=== PATIENT | male | born 1940 | race Caucasian/White ===

== ENCOUNTER → 2016-03-22 | Outpatient (CLI) | payer BC ==
[~2016-03-22] MED LIST: ACET-1256 PO; ASCA500 PO; CHOL100027 PO; CLTP PO; MULT-506 PO; NPR500 PO; POLY335019 PO; PRLSR20 PO; SIMV20TA2 PO; TADA5TAB11 PO; VITA400C15 PO; [UNRECOGNIZED DRUG - OTHER] PO
--- NOTE | 2016-03-22 13:56 | DIAGNOSTIC IMAGING REPORT ---
CT OF THE CHEST WITHOUT IV CONTRAST CLINICAL HISTORY: Pulmonary nodules. COMPARISON STUDY: Chest CT January 20, 2015 and PET/CT February 15, 2015. CT DOSE: 697.68 mGy.cm TECHNIQUE: Axial images of the chest were obtained without IV contrast. Images were reviewed in the axial, sagittal, and coronal planes. IV contrast was not administered for this examination. FINDINGS: No enlarged axillary, mediastinal or hilar lymph nodes are present. The heart is mildly enlarged. There is extensive coronary artery calcification. Central airways are patent. There is mild to moderate emphysema. A spiculated 2.4 cm left lower lobe nodule shown on image 176 of [address] of January 20, 2015. An irregular spiculated density within the right middle lobe measuring 5.1 cm is also unchanged. There is associated architectural distortion. These irregular densities contain areas of fat attenuation. A few right upper lobe nodules measuring up to 1.3 cm are unchanged. There are no new nodules. No suspicious osseous lesions are present. A suspected cyst within the upper pole the left kidney is again noted. IMPRESSION: 1. No change in the 2.4 cm spiculated left lower lobe nodule and the 5.1 cm spiculated density within the right middle lobe since CT of January 20, 2015. These remain indeterminate. However, areas of fat attenuation within these abnormalities raise the possibility of the sequela of lipoid pneumonia. Scarring could appear similar. A neoplastic process remains difficult to exclude and continued imaging follow-up is recommended with a follow-up chest CT in 6 months. 2. No thoracic lymphadenopathy. 3. No change in several right upper lobe nodules which can be assessed on subsequent CT. Electronically signed by: Ford Shipley M.D. 03/22/2016 1:54 PM Dictated Date/Time: 03/22/2016 1:37 PM
== END | disposition home or self-care (01) ==
LOC: C.CTS 13:27
PROVIDERS: ATTEND Surgery
DX: R91.8 Other nonspecific abnormal finding of lung field (principal)

== ENCOUNTER → 2016-08-19 | Outpatient (CLI) | payer BC ==
--- NOTE | 2016-08-19 10:54 | DIAGNOSTIC IMAGING REPORT ---
CHEST CT WITHOUT CONTRAST CT DOSE: 552.50 mGy.cm HISTORY: R91.8 Pulmonary nodules TECHNIQUE: Multiaxial CT images of the chest were performed without contrast. COMPARISON: 03/22/2016 FINDINGS: The study is a duplicate of the prior exam. Several nodular densities present described are unchanged. There are no new or interval findings. There is no change in configuration of any of the nodular densities previously questioned. IMPRESSION: Stable exam with no change in the pulmonary nodularity previously described. No new or interval finding. A follow-up examination to 12 months suggested. Electronically signed by: Francisco Wagner M.D. 08/19/2016 10:53 AM Dictated Date/Time: 08/19/2016 10:49 AM
[2016-08-19 12:16] LABS: BASO % 0.5 %; BASO ABS # 0.02 K/uL (0-0.2); COMPLETE YES; EOS % 1.6 %; HEMATOCRIT 43.5 % (42-52); LYMPH % 21.1 %; LYMPH ABS # 0.81 K/uL (1.2-3.4); MEAN CELL VOLUME 88.2 fL (80-100); MEAN CORPUSCULAR HEMOGLOBIN 28.6 pg (25-34); MEAN CORPUSCULAR HGB CONC 32.4 g/dl (32-36); MEAN PLATELET VOLUME 10.4 fL (7.4-10.4); MONO % 11.5 %; NEUT % 65.3 %; PLATELET COUNT 147 K/uL (130-400); RED BLOOD COUNT 4.93 M/uL (4.7-6.1); WHITE BLOOD COUNT 3.84 K/uL (4.8-10.8)
[2016-08-19 12:36] LABS: ALT/SGPT 20 U/L (12-78); BLOOD UREA NITROGEN 17 mg/dl (7-18); BUN/CREATININE RATIO 20.7 (10-20); CARBON DIOXIDE 31 mmol/L (21-32); CHLORIDE 104 mmol/L (98-107); CHOLESTEROL 154 mg/dl (0-200); CREATININE 0.82 mg/dl (0.60-1.40); GLUCOSE 97 mg/dl (70-99); POTASSIUM 4.3 mmol/L (3.5-5.1); SODIUM 140 mmol/L (136-145); TRIGLYCERIDES 172 mg/dl (0-150); VERY LOW DENSITY LIPOPROT CALC 34 mg/dl
[2016-08-19 12:39] LABS: ALB/GLOB RATIO 1.6 (0.9-2); ALKALINE PHOSPHATASE 44 U/L (45-117); AST/SGOT 18 U/L (15-37); CHOLESTEROL/HDL RATIO 3.4; ESTIMATED AVERAGE GLUCOSE 123 mg/dl; HA1C FLAG Normal (Normal); HDL CHOLESTEROL 45 mg/dl; LDL CHOLESTEROL CALCULATED 75 mg/dl
[2016-08-19 12:41] LABS: CALCIUM 8.8 mg/dl (8.5-10.1)
== END | disposition home or self-care (01) ==
LOC: C.CTS 09:51
PROVIDERS: ATTEND Surgery
DX: R91.8 Other nonspecific abnormal finding of lung field (principal); E78.5 Hyperlipidemia, unspecified; M48.00 Spinal stenosis, site unspecified; R73.9 Hyperglycemia, unspecified; E55.9 Vitamin D deficiency, unspecified; I70.0 Atherosclerosis of aorta; I25.10 Atherosclerotic heart disease of native coronary artery without angina pectoris; I10 Essential (primary) hypertension

== ENCOUNTER → 2016-09-04 | Outpatient (CLI) | payer BC | END | disposition home or self-care (01) | LOC: C.LABPBG 14:36 | PROVIDERS: ATTEND Urology | DX: C61 Malignant neoplasm of prostate (principal) ==

== ENCOUNTER → 2017-01-14 | Outpatient (CLI) | payer BC ==
--- NOTE | 2017-01-14 09:54 | DIAGNOSTIC IMAGING REPORT ---
AORTIC ANEURYSM RETROPERINEAL CLINICAL HISTORY: I72.3 Iliac artery aneurysm screen for coexisting abdominal aortic aneurysm COMPARISON STUDY: CT scan dated 01/16/2015 FINDINGS: The peak systolic velocity within the aorta was 66 cm/s. The proximal aorta measures 22 mm in diameter, the mid aorta 22 mm in diameter, the distal aorta 18 mm in diameter. The right iliac measures 18 mm in diameter. The left iliac measures 12 mm in diameter. There is moderate shadowing atheromatous plaque throughout the aorta. IMPRESSION: Calcified aortic plaque. No evidence of abdominal aortic aneurysm. Electronically signed by: Diego Collier M.D. 01/14/2017 9:52 AM Dictated Date/Time: 01/14/2017 9:49 AM
== END | disposition home or self-care (01) ==
LOC: C.ULTR 09:13
PROVIDERS: ATTEND Internal Medicine Geriatric Medicine
DX: I72.3 Aneurysm of iliac artery (principal)

== ENCOUNTER → 2017-02-19 | Outpatient (CLI) | payer BC ==
[~2017-02-19] MED LIST changes: +FLUT0.15 PO; +LISI-729 PO; +LOSA1TAB PO; +NAPR-21 PO; -NPR500 PO
[2017-02-19 14:22] VITALS: BP 146/69; PULSE 57; TEMP 36.9; O2SAT 96
--- NOTE | 2017-02-19 15:29 | Radiation Oncology Follow-Up ---
Radiation Oncology Follow-Up Date of Visit Feb 19, 2017. Reason For Visit Annual follow up Radiation Completion Date Seed Implant 04/28/12, IMRT 07/28/12 Diagnosis (1) Prostate cancer Status: Resolved Onset Date: 01/30/2012 Location: both lobes of prostate Histology Subtype: adenocarcinoma Stage: ll Permanent Comment: Rising PSA, pretreatment PSA 6.97, clinical stage TIc Status post ultrasound-guided biopsies. Biopsy stage T2c Anay grade 3+3 and 3+4 Status post seed implant with cesium 131 04/28/2012 Status post completion of IMRT/IGRT completed 07/28/2012 Last Edited By: Paty Montez on Feb 09, 2015 15:39 Interim History His been doing well over this past year from urinary standpoint. Today he gave AUA score of 3. He does take Cialis daily. This prescribed by urology. He feels does help his urination. He completed and expanded prostate cancer index composite for clinical practice and gave a score of 0 of cut 12 and urinary incontinence symptoms. He gave a score of 0 of 12 and urinary irritation symptoms. He gave a score of 0 of 12 and bowel symptoms. He gave a score of 3 of 12 and sexual symptoms. He gave a score of 0 of 12 and hormonal vitality symptoms. His total was 3 of 60. He had a PSA 02/14/2016 that was 0.049. A PSA on 09/04/2016 was 0.039. Allergies Coded Allergies: Ibuprofen (Verified Allergy, Intermediate, RASH, 03/10/15) Penicillins (Verified Allergy, Intermediate, RASH, 03/10/15) Doxycycline (Verified Allergy, Unknown, UNKNOWN, 03/10/15) Oxycodone (Verified Allergy, Unknown, HALLUCINATION, 03/10/15) Propoxyphene (Verified Adverse Reaction, Severe, HALLICINATIONS, 03/10/15) Pravastatin (Verified Adverse Reaction, Intermediate, JOINT PAIN, 03/10/15) Home Medications Scheduled Acetaminophen (Tylenol), 500 MG PO BID Ascorbic Acid (Vitamin C *), 500 MG PO QAM Calcium/Vitamin D (Caltrate 600 Plus *), 1 TAB PO BID Cholecalciferol (Vitamin D 1000 Unit), 5,000 INTER.UNIT PO QAM Multivitamin (Multivitamin), 1 TAB PO Q2D Naproxen (Naprosyn), 500 MG PO BID Omeprazole (Prilosec), 20 MG PO QAM Polyethylene Glycol 3350 (Miralax), 17 GM PO QPM Simvastatin (Zocor), 1 TAB PO HS Tadalafil (Cialis), 5 MG PO QAM Tocopheryl Acet,Dl-Alpha (Vitamin E), 400 INTER.UNIT PO Q2D [Lipotriad], 1 TAB PO QAM Review of Systems Gastrointestinal: Symptoms: WNL Oral: Symptoms: No Problems Respiratory: Symptoms: WNL Urinary: Symptoms: WNL Comments: Nocturia x 1-2, See AUA & EPIC Skin: Symptoms: No Problems Physical Exam Vital Signs Date Time Temp Pulse Resp B/P (MAP) Pulse Ox O2 Delivery O2 Flow Rate FiO2 02/19/17 14:22 36.9 57 16 146/69 96 Fatigue: None General Appearance: no apparent distress Eyes: normal inspection, EOMI ENT: normal ENT inspection, hearing grossly normal Neck: no adenopathy, thyroid normal Respiratory/Chest: lungs clear, no respiratory distress, no accessory muscle use Cardiovascular: regular rate, rhythm, no gallop, no murmur Abdomen: non tender, soft, no organomegaly Anal / Rectum: Normal sphincter tone. Prostate is smooth without nodules. No rectal masses no rectal bleeding. Pain Management Patient Reports Pain: Yes Pain Management Plan This is back pain which is chronic. He is followed at pain management. Laboratory Laboratory Results: were reviewed Laboratory Comments: In the interim history. Pathology Pathology Results: not applicable Imaging Imaging Studies: not applicable Assessment & Plan Plan: A PSA was drawn today prior to examination. Healing notified as to results. He'll continue regular follow-up with Dr. Mcnamara and his primary care physician. We did briefly touch on the lordosis that he has of his back. He states that he has had multiple studies performed. This is an inherited condition. He has been evaluated for osteoporosis. We asked him to return to our office in 1 year. He may call if he has any questions or concerns in the interim. Total Time In Follow-Up I spent 20 minutes speaking to the patient performing examination. I spent 15 minutes reviewing information in completing this note. Copy To Nick Yeboah M.D.; Estuardo Mcnamara MD
== END | disposition home or self-care (01) ==
LOC: C.ONC 14:02
PROVIDERS: ATTEND Physician Assistant Medical
DX: Z08 Encounter for follow-up examination after completed treatment for malignant neoplasm (principal); Z92.3 Personal history of irradiation; Z85.46 Personal history of malignant neoplasm of prostate

== ENCOUNTER → 2017-02-26 | Outpatient (CLI) | payer BC ==
[~2017-02-26] MED LIST changes: -FLUT0.15 PO
[2017-02-26 10:57] LABS: BLOOD UREA NITROGEN 18 mg/dl (7-18); CALCIUM 9.3 mg/dl (8.5-10.1); CARBON DIOXIDE 30 mmol/L (21-32); CREATININE 0.85 mg/dl (0.60-1.40); GLUCOSE 117 mg/dl (70-99); POTASSIUM 4.1 mmol/L (3.5-5.1); SODIUM 138 mmol/L (136-145)
[2017-02-26 11:00] LABS: CHOLESTEROL 186 mg/dl (0-200); LDL CHOLESTEROL CALCULATED 104 mg/dl
[2017-02-26 11:12] LABS: BASO % 0.5 %; BASO ABS # 0.02 K/uL (0-0.2); EOS % 1.7 %; EOS ABS # 0.07 K/uL (0-0.5); HEMATOCRIT 44.2 % (42-52); HEMOGLOBIN 14.7 g/dL (14.0-18.0); LYMPH % 18.7 %; LYMPH ABS # 0.77 K/uL (1.2-3.4); MEAN CELL VOLUME 86.3 fL (80-100); MEAN CORPUSCULAR HEMOGLOBIN 28.7 pg (25-34); MEAN CORPUSCULAR HGB CONC 33.3 g/dl (32-36); MONO ABS # 0.41 K/uL (0.11-0.59); NEUT % 69.1 %; NEUT ABS # 2.85 K/uL (1.4-6.5); PLATELET COUNT 145 K/uL (130-400); RED CELL DISTRIBUTION WIDTH CV 14.6 % (11.5-14.5); RED CELL DISTRIBUTION WIDTH SD 46.8 fL (36.4-46.3); WHITE BLOOD COUNT 4.12 K/uL (4.8-10.8)
== END | disposition home or self-care (01) ==
LOC: C.LABBC 08:17
PROVIDERS: ATTEND Internal Medicine Geriatric Medicine
DX: E78.5 Hyperlipidemia, unspecified (principal); M48.00 Spinal stenosis, site unspecified; R73.9 Hyperglycemia, unspecified; I10 Essential (primary) hypertension

== ENCOUNTER → 2017-03-11 | Outpatient (CLI) | payer BC ==
[~2017-03-11] MED LIST changes: -LISI-729 PO; -LOSA1TAB PO; -NAPR-21 PO; +NPR500 PO
[2017-03-11 13:26] LABS: BLOOD UREA NITROGEN 18 mg/dl (7-18); CALCIUM 9.6 mg/dl (8.5-10.1); CARBON DIOXIDE 30 mmol/L (21-32); CREATININE 0.86 mg/dl (0.60-1.40); GLUCOSE 83 mg/dl (70-99); POTASSIUM 3.6 mmol/L (3.5-5.1); SODIUM 138 mmol/L (136-145)
== END | disposition home or self-care (01) ==
LOC: C.LABPBG 09:18
PROVIDERS: ATTEND Internal Medicine Geriatric Medicine
DX: I10 Essential (primary) hypertension (principal)

== ENCOUNTER → 2017-07-11 | Outpatient (CLI) | payer BC ==
[~2017-07-11] MED LIST changes: +LOSA1TAB PO; +NAPR-21 PO; -NPR500 PO
--- NOTE | 2017-07-11 08:41 | DIAGNOSTIC IMAGING REPORT ---
(CHEST) THORAX WITHOUT CLINICAL HISTORY: PULMONARY NODULES COMPARISON STUDY: 08/19/2016, March 2016, September 2015, January 2015 CT DOSE: 535.42 mGycm TECHNIQUE: CT of the thorax was performed from the thoracic inlet to the lung bases. Images are reviewed in the axial, sagittal, and coronal planes. IV contrast was not administered for this examination. A dose lowering technique was utilized adhering to the principles of ALARA. FINDINGS: Thyroid: Imaged portions of the thyroid gland are normal in appearance. Thoracic aorta: The thoracic aorta is normal in course and caliber, noting standard 3 vessel arch anatomy. Heart: There are coronary artery calcifications present. Lungs and pleural spaces: There are no pleural effusions. There is pulmonary emphysema present. There is irregular marginated 23 mm nodular opacity within superior segment left lower lobe. There is a persistent area of bronchiectatic change and masslike consolidation within the right middle lobe. There are clustered right upper lobe nodules including a tubular density measuring 12 x 5 mm. These remain stable. Mediastinum: There is no mediastinal lymphadenopathy. [place]: There is no evidence of pathologic hilar adenopathy given the limitations of a noncontrast study Axilla: Clear. Upper abdomen: Partially visualized upper abdominal viscera is within normal limits. Skeletal structures: Degenerative changes are present within the dorsal spine. 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 IMPRESSION: 1. Stable 23 mm irregular marginated nodule within the superior segment of the left lower lobe 2. Stable bronchiectatic change and masslike consolidation within the right middle lobe 3. Stable right upper lobe pulmonary nodularity 4. The 2 1/2 year stability of the above-mentioned findings, strongly favor a benign process Electronically signed by: Diego Collier M.D. 07/11/2017 8:40 AM Dictated Date/Time: 07/11/2017 8:33 AM
== END | disposition home or self-care (01) ==
LOC: C.CTS 08:02
PROVIDERS: ATTEND Internal Medicine Geriatric Medicine
DX: R91.8 Other nonspecific abnormal finding of lung field (principal)

== ENCOUNTER 2023-11-04 12:53 | Observation (INO) ==
--- NOTE | 2023-11-04 14:09 | Emergency Department Note ---
Impression & Plan Acute hyponatremia, Dizziness, Anemia, Leukopenia ED Provider Note NAME: DREA MCDANIEL AGE: 82 SEX: M : 1940 ARRIVES VIA: Ambulance INFORMANT: Patient ED PROVIDER(S): Kyler Ward DO CHIEF COMPLAINT: Dizzy/lightheaded HPI: Patient is an 82-year-old male who presents to the ER with a past medical history of aortic stenosis, cardiomyopathy, pulmonary hypertension and CAD for lightheaded/dizziness. This started around 10 AM when he went from a sitting to a standing position and he felt lightheaded. He notes when he sat down he believes it went away but is not 100% sure. He does not remember the. He notes it stayed there intermittently for about an hour to an hour and a half. He denies any headache or change in vision. No chest pain or shortness of breath. No dysuria urgency or frequency. No other exacerbating or remitting factors. No change in medications. ADDITIONAL HISTORY OBTAINED: Per HPI Chronic Medical/Social Conditions Affecting Care: Per HPI PAST MEDICAL HISTORY:See Below PAST SURGICAL HISTORY:See Below FAMILY HISTORY:See Below SOCIAL HISTORY:See Below HOME MEDICATIONS:See Below ALLERGIES:See Below VITALS:See Below PHYSICAL EXAMINATION: GENERAL: Sitting up in bed, alert, well appearing, well nourished, no distress, non-toxic EYE EXAM: normal conjunctiva. PERRL and EOM's intact. OROPHARYNX: no exudate, no erythema, lips, buccal mucosa, and tongue normal and mucous membranes are moist NECK: supple, no nuchal rigidity, no adenopathy, non-tender LUNGS: Clear to auscultation. Normal chest wall mechanics HEART: no murmurs, S1 normal and S2 normal ABDOMEN: abdomen soft, non-tender, normo-active bowel sounds, no masses, no rebound or guarding. UPPER EXTREMITIES: upper extremities are grossly normal. LOWER EXTREMITIES: No pitting edema. NEURO EXAM: Normal sensorium, cranial nerves II-XII intact, normal speech, no weakness of arms, no weakness of legs. No drift. Finger to nose intact. Gross sensation intact. MEDICAL DECISION MAKING: Patient is an 82-year-old man who presents to the ER for dizziness/lightheadedness. IV was established blood was obtained. Labs show a leukopenia of 3.4 thousand. Mild anemia at 9.4. BMP with hyponatremia at 128. LFTs bilirubin was unremarkable. Troponin was negative. UA was clean. CT angios of the head and neck showed no acute pathology. Patient was given IV fluids. He was updated at bedside. He was discussed with with the hospitalist for further evaluation management treatment. Consults/Care Managements Discussions: Per [facility] Triage Nursing notes reviewed. Limited review of prior medical records performed Vital Signs: reviewed and remarkable for HTN Differential diagnosis: Differential diagnosis includes etiologies such as benign positional vertigo, dehydration, hypovolemia, anemia, tumor, infection, hypoglycemia, electrolyte abnormalities, cardiac sources, intracerebral event, toxicologic, neurological, as well as others were entertained. ER treatment provided: See below Diagnostics interpreted by me include EKG and cardiac monitoring as listed below: -Cardiac Monitoring: An order was placed for continuous cardiac monitoring. The monitor shows a rate of 60 with sinus rhythm. -ECG: Sinus rhythm rate of 57 First-degree AV block Right bundle branch block Fascicular block QTc 453 -Laboratory studies:[Interpreted by me as stated above in MDM and shown below.] Imaging studies: Xrays: As interpreted by me: Portable AP upright 1 view of the chest shows right lower lobe atelectasis. CTs show: CT a of the head and neck was negative Procedures:none Critical Care: None Past Med/Surg History Problem List (Updated 11/04/23 @ 18:42 by Kyler Ward DO) Leukopenia (Acute) Anemia (Acute) Dizziness (Acute) Acute hyponatremia (Acute) Hyponatremia Weakness Varicose veins of both legs with edema B12 deficiency Sialorrhea Pulmonary hypertension Cardiomyopathy Aortic stenosis, mild Nasal septal deviation Hypertrophy of both inferior nasal turbinates Chronic rhinitis Lumbar back pain Thoracic back pain Coronary artery calcification RBBB Abnormal EKG COPD (chronic obstructive pulmonary disease) pt denies Prediabetes Male erectile disorder of organic origin Prostate cancer Superficial spreading malignant melanoma of skin Chronic venous insufficiency History of malignant neoplasm of prostate 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, along with aortic atherosclerosis > under surveillance Macular degeneration Left eye Osteopenia Pulmonary emphysema Pulmonary nodules "Benign" navigational bronchoscopy/biopsy (2016) Tubular adenoma of colon Vitamin D deficiency Lumbar radiculitis (Chronic) Anxiety Lumbar facet joint syndrome (Chronic) Spinal stenosis, lumbar region with neurogenic claudication (Chronic) Chronic constipation CAD (coronary artery disease) Aortic atherosclerosis Umbilical hernia Hypertension Hyperlipidemia GERD (gastroesophageal reflux disease) Osteoarthritis Medical History Personal history of malignant melanoma of skin Sacroiliitis Surgical History Status post 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 Walden 09/27/2020 H/O right inguinal hernia repair Laparoscopic Right Inguinal Hernia Repair with mesh, Open Umbilical Hernia Repair(Right) Dr. Walden 09/27/2020 History of prostate biopsy History of melanoma excision History of tooth extraction all teeth removed S/P bronchoscopy Navigational bronchoscopy (2015) History of colonoscopy History of total knee arthroplasty R/L H/O cervical spine surgery ACDF C4-5 (no ROM limitations per PAT RN interview) History of tonsillectomy and adenoidectomy Family History Father Coronary heart disease Heart disease Myocardial infarction Mother Stroke Family/Other Diabetes A-fib Lung cancer Hypertension Other No family history of adverse response to anesthesia No family history of bleeding disorder Denies family history of Ovarian cancer Prostate cancer Breast cancer Colorectal cancer Social History Smoking Status: Former smoker Tobacco Type: Cigarettes Age Started Using Tobacco: 15; Age Quit Using Tobacco: 49; Second Hand Exposure: No; Do You Dip or Chew Tobacco: No; Hx Alcohol Use: Yes Alcohol type: hard liquor Alcohol Intake Frequency: 2-4 x/Month Hx Substance Use: No Preferred Language: B[place]ian Communication Ability: Effective Visual Impairment: No Limitations Hearing Ability: Normal Frog Catcher Required: No Beliefs That Will Affect Care: None marital status: Current Living Situation: Spouse current occupational status: retired Feels Safe at Home: Yes Childhood Exposure to Second-Hand Smoke: Yes Diet: regular Diet Comment: regular caffeine: No during the past year weight has: remained stable Dental Care, Regularly: No Physical Activity Frequency: Daily Seatbelt Use: always Sunscreen Use: No Assistive Devices: Denture - Upper, Denture - Lower and Glasses Allergies Allergies Allergy/AdvReac Type Severity Reaction Status Date / Time ibuprofen Allergy Intermediate Rash Verified 10/30/23 08:34 Penicillins Allergy Intermediate Rash Verified 10/30/23 08:34 ranitidine Allergy Intermediate Rash Verified 10/30/23 08:34 (stomach) meloxicam Allergy Unknown Unknown Verified 10/30/23 08:34 ramipril Allergy Unknown Verified 10/30/23 08:34 oxycodone AdvReac Severe Hallucinati Verified 10/30/23 08:34 ons propoxyphene AdvReac Severe Hallucinati Verified 10/30/23 08:34 ons pravastatin AdvReac Intermediate Joint pain Verified 10/30/23 08:34 doxycycline AdvReac Unknown Per Verified 10/30/23 08:34 records (pt denies) Home Meds Home Medications Medication Instructions Recorded Confirmed calcium carbonate 600 mg-vitamin 1 tab PO BID 02/16/18 11/04/23 D3 20 mcg (800 unit) chewable tablet (Caltrate 600 plus D) cholecalciferol (vitamin D3) 125 5,000 units PO QAM 02/16/18 11/04/23 mcg (5,000 unit) tablet polyethylene glycol 3350 17 17 g PO HS 02/16/18 11/04/23 gram/dose oral powder (Miralax) vit A 5,000 unit-C 120 mg-E 60 1 tab PO QAM 02/16/18 11/04/23 unit-B [id number] tablet ER (Lipotriad (with lutein)) vitamin E acetate 134 mg (200 400 units PO Q OTHER DAY 02/16/18 11/04/23 unit) capsule multivitamin 1 tab PO DAILY 12/29/18 11/04/23 pantoprazole 40 mg tablet,delayed 40 mg PO DAILY 11/04/23 11/04/23 release tamsulosin 0.4 mg capsule 0.4 mg PO HS 11/04/23 11/04/23 tramadol 50 mg tablet 50 mg PO HS PRN pain 11/04/23 11/04/23 Previous Rx's Medication Instructions Recorded metoprolol succinate 25 mg 25 mg PO DAILY #90 tabs 12/16/22 tablet,extended release 24 hr simvastatin 20 mg tablet (Zocor) 20 mg PO QPM #90 tabs 02/17/23 loratadine 10 mg tablet (Claritin) 10 mg PO DAILY #30 tabs 05/20/23 naproxen 500 mg tablet 500 mg PO BID #180 tabs 09/24/23 sertraline 25 mg tablet 25 mg PO DAILY #30 tabs 09/30/23 Results & Data (ED) Vital Signs Vital Signs - 24 hr 11/04/23 13:13 11/04/23 13:21 11/04/23 13:21 Temperature 36.4 C Temperature Source Oral Pulse Rate 57 L 53 L Pulse Rate [Apical] Respiratory Rate 16 Respiratory Effort / Characteristics Non-Labored Respiratory Depth Normal Respiratory Pattern Regular Blood Pressure 164/70 H Blood Pressure [Right Arm] Blood Pressure Mean 101 Blood Pressure Mean [Right Arm] Blood Pressure Position Semi-fowlers Blood Pressure Position [Right Arm] Pulse Oximetry 98 97 Oxygen Delivery Method Room Air Room Air Sepsis Recent Fever Within 48 Hours No Sepsis New/Unexplained Change in Mental Status No Sepsis Action Taken by Nursing No Action Required 11/04/23 13:21 11/04/23 15:30 11/04/23 15:31 Temperature Temperature Source Pulse Rate 67 Pulse Rate [Apical] 58 L 70 Respiratory Rate 21 18 18 Respiratory Effort / Characteristics Non-Labored Spontaneous Non-Labored Spontaneous Respiratory Depth Normal Normal Respiratory Pattern Regular Regular Blood Pressure Blood Pressure [Right Arm] 164/70 H 114/74 Blood Pressure Mean Blood Pressure Mean [Right Arm] 101 87 Blood Pressure Position Blood Pressure Position [Right Arm] Semi-fowlers Pulse Oximetry 98 94 97 Oxygen Delivery Method Room Air Room Air Room Air Sepsis Recent Fever Within 48 Hours Sepsis New/Unexplained Change in Mental Status Sepsis Action Taken by Nursing 11/04/23 16:49 11/04/23 18:15 11/04/23 18:25 Temperature Temperature Source Pulse Rate 55 L Pulse Rate [Apical] 67 64 Respiratory Rate 17 18 Respiratory Effort / Characteristics Non-Labored Spontaneous Non-Labored Spontaneous Respiratory Depth Normal Normal Respiratory Pattern Regular Regular Blood Pressure Blood Pressure [Right Arm] 180/78 H 117/67 Blood Pressure Mean Blood Pressure Mean [Right Arm] 112 83 Blood Pressure Position Blood Pressure Position [Right Arm] Semi-fowlers Pulse Oximetry 98 96 Oxygen Delivery Method Room Air Room Air Sepsis Recent Fever Within 48 Hours Sepsis New/Unexplained Change in Mental Status Sepsis Action Taken by Nursing Laboratory Data 11/04/23 13:42 11/04/23 13:42 Lab Results 11/04/23 11/04/23 11/04/23 Range/Units 13:38 13:42 17:19 WBC 3.44 L (4.8-10.8) K/ul RBC 4.03 L (4.70-6.10) M/uL Hgb 9.4 L (14.0-18.0) g/dl Hct 30.5 L (42.0-52.0) % MCV 75.7 L (80.0-100.0) fL MCH 23.3 L (25.0-34.0) pg MCHC 30.8 L (32.0-36.0) g/dL RDW Std Deviation 43.4 (36.4-46.3) fL RDW Coeff of Brian 15.9 H (11.5-14.5) % Plt Count 161 (130-400) K/uL MPV 9.0 L (9.4-12.4) fL Immature Gran % (Auto) 0.3 % Neut % (Auto) 74.4 % Lymph % (Auto) 11.9 % [place] % (Auto) 11.6 % Eos % (Auto) 1.2 % Baso % (Auto) 0.6 % Neut # (Auto) 2.56 (1.40-6.50) K/uL Lymph # (Auto) 0.41 L (1.20-3.40) K/uL [place] # (Auto) 0.40 (0.11-0.59) K/uL Eos # (Auto) 0.04 (0.00-0.50) K/uL Baso # (Auto) 0.02 (0.00-0.20) K/uL Immature Gran # (Auto) 0.01 (0.01-0.20) K/uL Sodium 128 L (136-145) mmol/L Potassium 4.0 (3.5-5.1) mmol/L Chloride 95 L (98-107) mmol/L Carbon Dioxide 28 (21-32) mmol/L Anion Gap 5 (3-11) BUN 19 (6-23) mg/dl Creatinine 0.69 (0.6-1.4) mg/dl Est Cr Clr Drug Dosing 81.1 ml/min Est GFR ( Amer) 101.8 ml/min Est GFR (Non-Af Amer) 87.8 ml/min BUN/Creatinine Ratio 27.5 H (10-20) Glucose 104 H (70-99(Fasting)) mg/dl POC Glucose 100 H (70-99) mg/dl Calcium 8.5 L (8.6-10.3) mg/dl Total Bilirubin 0.4 (0.2-1.0) mg/dl AST 18 (13-39) U/L ALT 12 (7-52) U/L Alkaline Phosphatase 41 (34-104) U/L Troponin I High Sens 8.2 (0-20) pg/ml Total Protein 5.9 L (6.0-8.3) gm/dl Albumin 4.0 (3.4-5.0) gm/dl Globulin 1.9 L (2.5-4.0) gm/dl Albumin/Globulin Ratio 2.1 H (0.9-2) Lipase 24 (11-82) U/L Urine Color Yellow Urine Appearance Clear (Clear) Urine pH 8.0 H (4.5-7.5) Ur Specific [place] 1.017 (1.000-1.030) Urine Protein Negative (Negative) Urine Glucose (UA) Negative (Negative) Urine Ketones Negative (Negative) Urine Blood Negative (Negative) Urine Nitrite Negative (Negative) Urine Bilirubin Negative (Negative) Urine Urobilinogen Negative (Negative) Ur Leukocyte Esterase Negative (Negative) Urine Osmolality 306 L (500-800) mOsm/kg Ur Random Sodium 81 mmol/L Administered Medications Discontinued Medications Sodium Chloride (Nss) 500 mls @ 999 mls/hr IV .Q31M ONE Stop: 11/04/23 14:34 Last Infusion: 11/04/23 16:47 Dose: Infused Documented By: Admin: 11/04/23 14:18 Dose: 999 mls/hr Documented By: JOVANY Ioversol (Optiray 320 125ml) 120 ml IV ONCE ONE Stop: 11/04/23 14:59 Last Admin: 11/04/23 14:58 Dose: 120 ml Documented By: BERNARDINO Imaging Data Radiologist's Impression: Chest X-Ray 11/04/23 14:04 XR chest 1V portable CLINICAL HISTORY: Chest pain, nonspecific TECHNIQUE: Single frontal radiograph of the chest was obtained. Comparison: Comparison is made to rib series 10/03/2020 FINDINGS: No lines and tubes are seen. The cardiomediastinal silhouette is stable. Atelectasis is seen. No evidence of pleural effusion or pneumothorax. IMPRESSION: No acute chest disease. ACT 112: Negative or not required by law. Electronically signed by: Sigifredo Diego M.D. 11/04/2023 2:40 PM Head CTA 11/04/23 14:04 CT angio head wo/w CLINICAL HISTORY: dizzy COMPARISON STUDY: PET/CT February 15, 2015. TECHNIQUE: Unenhanced and arterial phase imaging of the head was performed. Intravenous injection of 120 cc Optiray 320 IV was uneventful. Sagittal and coronal reconstructions were viewed as well as maximal intensity projections on an independent 3-D workstation. Automated exposure control was utilized for the study. A dose lowering technique was utilized adhering to the principles of ALARA. FINDINGS: No acute intracranial hemorrhage, midline shift or mass effect is present. Ventricular system is unremarkable. The basal cisterns are patent. There is a suspected old lacunar infarct within the right cerebellar hemisphere. White matter hypodensity suggests small vessel disease. There is mild atrophy. No findings to suggest acute dural sinus thrombosis or acute territorial infarct. The bilateral M1, M2, A1 and A2 segments are patent. There is extensive calcified plaque within the bilateral cavernous carotids without significant stenosis. No central vessel occlusion is present. There is mild stenosis of the left vertebral artery as it passes through the dura. Basilar artery is patent. Posterior cerebral arteries are patent. There is persistence of the left posterior cerebral artery. IMPRESSION: 1. No acute intracranial findings. 2. No large vessel occlusion. No intracranial aneurysm. ACT 112: Negative or not required by law. Electronically signed by: Ford Shipley M.D. 11/04/2023 3:23 PM Neck CTA 11/04/23 14:04 CT angio neck with con CLINICAL HISTORY: dizzy TECHNIQUE: CT angiography of the neck was performed following intravenous administration of iodinated contrast. Coronal and sagittal MIPS were obtained from the axial data set and were submitted for review. Automated dose lowering techniques and/or adjustment according to patient size were utilized for this examination. All measurements were calculated based on NASCET criteria. Comparison: None available at the time of this dictation. FINDINGS: Bilateral emphysematous changes are seen. CTA Neck: A 3 vessel aortic arch is shown. There is no significant atherosclerotic plaque in the aortic arch or the origins of the innominate, left common carotid, and left subclavian arteries. There is mild calcified atherosclerotic plaque at the bifurcation of the bilateral common carotid arteries without hemodynamically significant flow stenosis. There is no dissection present. The right vertebral artery is dominant. IMPRESSION: No occlusion, hemodynamically significant stenosis, or dissection in the major cervical arteries. Assessment of stenosis of the internal carotid arteries is based on NASCET criteria. ACT 112: Negative or not required by law. Electronically signed by: Sigifredo Diego M.D. 11/04/2023 3:20 PM Discharge Plan Visit Data Chief Complaint: Dizziness ED Provider: Kyler Ward Discharge Problem: Acute hyponatremia, Dizziness, Anemia, Leukopenia Forms Stand Alone Forms: [facility] [employer] Prescriptions Prescriptions: No Action calcium carbonate-vitamin D3 [Caltrate 600 plus D] 600 mg (1,500 mg)-800 unit tablet,chewable 1 tab PO BID cholecalciferol (vitamin D3) 5,000 unit tablet 5,000 units PO QAM vits A-C-E-B [id number] [Lipotriad (with lutein)] 5,000 unit- 120 mg-60 unit tablet extended release 1 tab PO QAM polyethylene glycol 3350 [Miralax] 17 gram/dose powder 17 g PO HS vitamin E acetate 200 unit capsule 400 units PO Q OTHER DAY Patient Comments: takes in the am multivitamin tablet 1 tab PO DAILY Patient Comments: takes in the am simvastatin [Zocor] 20 mg tablet 20 mg PO QPM Qty: 90 3RF naproxen 500 mg tablet 500 mg PO BID Qty: 180 0RF sertraline 25 mg tablet 25 mg PO DAILY Qty: 30 2RF metoprolol succinate 25 mg tablet extended release 24 hr 25 mg PO DAILY Qty: 90 3RF loratadine [Claritin] 10 mg tablet 10 mg PO DAILY Qty: 30 5RF tamsulosin 0.4 mg capsule 0.4 mg PO HS pantoprazole 40 mg tablet,delayed release (DR/EC) 40 mg PO DAILY tramadol 50 mg tablet 50 mg PO HS PRN (Reason: pain) Referrals Referrals: Carisa Marr DO [Primary Care Provider] - Discharge Problem: Anemia Qualifiers: Anemia type: unspecified type Qualified Code(s): D64.9 - Anemia, unspecified Leukopenia Qualifiers: Leukopenia type: unspecified Qualified Code(s): D72.819 - Decreased white blood cell count, unspecified
[2023-11-04 14:17] LABS: Basophils # (auto) 0.02 K/uL (0.00-0.20); Basophils % (auto) 0.6 %; Eosinophils # (auto) 0.04 K/uL (0.00-0.50); Eosinophils % (auto) 1.2 %; Hematocrit (blood only) 30.5 % (42.0-52.0); Hemoglobin 9.4 g/dl (14.0-18.0); Immature Granulocytes # (auto) 0.01 K/uL (0.01-0.20); Immature Granulocytes % (auto) 0.3 %; Lymphocytes # (auto) 0.41 K/uL (1.20-3.40); Lymphocytes % (auto) 11.9 %; Mean Corpuscular Hemoglobin 23.3 pg (25.0-34.0); Mean Corpuscular Hgb Conc 30.8 g/dL (32.0-36.0); Mean Corpuscular Volume 75.7 fL (80.0-100.0); Monocytes % (auto) 11.6 %; Neutrophils # (auto) 2.56 K/uL (1.40-6.50); Neutrophils % (auto) 74.4 %; Platelet Count 161 K/uL (130-400); RDW Coefficient of Variation 15.9 % (11.5-14.5); RDW Standard Deviation 43.4 fL (36.4-46.3); Red Blood Count 4.03 M/uL (4.70-6.10); White Blood Count 3.44 K/ul (4.8-10.8)
[2023-11-04] MEDS: SODIUM CHLORIDE 0.9% 500 ML IV ONE (14:18)
[2023-11-04 14:39] LABS: Albumin Globulin Ratio 2.1 (0.9-2); BUN Creatinine Ratio 27.5 (10-20); Bilirubin,Total 0.4 mg/dl (0.2-1.0); Calcium 8.5 mg/dl (8.6-10.3); Creatinine Clr Calc Pharmacy 81.1 ml/min; Est GFR (African American) 101.8 ml/min; Est GFR (Non-African American) 87.8 ml/min; Globulin 1.9 gm/dl (2.5-4.0); Total Protein 5.9 gm/dl (6.0-8.3)
--- NOTE | 2023-11-04 14:41 | XRay Report ---
XR chest 1V portable CLINICAL HISTORY: Chest pain, nonspecific TECHNIQUE: Single frontal radiograph of the chest was obtained. Comparison: Comparison is made to rib series 10/03/2020 FINDINGS: No lines and tubes are seen. The cardiomediastinal silhouette is stable. Atelectasis is seen. No evid ence of pleural effusion or pneumothorax. IMPRESSION: No acute chest disease. ACT 112: Negative or not required by law. Electronically signed by: Sigifredo Diego M.D. 11/04/2023 2:40 PM
[2023-11-04 14:46] LABS: Troponin I High Sensitivity 8.2 pg/ml (0-20)
[2023-11-04] MEDS: OPTIRAY 320 125ml IV ONE (14:58)
--- NOTE | 2023-11-04 15:21 | CT Scan Report ---
CT angio neck with con CLINICAL HISTORY: dizzy TECHNIQUE: CT angiography of the neck was performed following intravenous administration of iodinated contrast. Coronal and sagittal MIPS were obtained from the axial data set and were submitted for rev iew. Automated dose lowering techniques and/or adjustment according to patient size were utilized fo r this examination. All measurements were calculated based on NASCET criteria. Comparison: None available at the time of this dictation. FINDINGS: Bilateral emphysematous changes are seen. CTA Neck: A 3 vessel aortic arch is shown. There is no significant atherosclerotic plaque in the aor tic arch or the origins of the innominate, left common carotid, and left subclavian arteries. There is mild calcified atherosclerotic plaque at the bifurcation of the bilateral common carotid arteries without hemodynamically significant flow stenosis. There is no dissection present. The right vertebra l artery is dominant. IMPRESSION: No occlusion, hemodynamically significant stenosis, or dissection in the major cervical arteries. Assessment of stenosis of the internal carotid arteries is based on NASCET criteria. ACT 112: Negative or not required by law. Electronically signed by: Sigifredo Diego M.D. 11/04/2023 3:20 PM
--- NOTE | 2023-11-04 15:26 | CT Scan Report ---
CT angio head wo/w CLINICAL HISTORY: dizzy COMPARISON STUDY: PET/CT February 15, 2015. TECHNIQUE: Unenhanced and arterial phase imaging of the head was performed. Intravenous injection of 120 cc Optiray 320 IV was uneventful. Sagittal and coronal reconstructions were viewed as well as max imal intensity projections on an independent 3-D workstation. Automated exposure control was utilized for the study. A dose lowering technique was utilized adhering to the principles of ALARA. FINDINGS: No acute intracranial hemorrhage, midline shift or mass effect is present. Ventricular syst em is unremarkable. The basal cisterns are patent. There is a suspected old lacunar infarct within th e right cerebellar hemisphere. White matter hypodensity suggests small vessel disease. There is mild atrophy. No findings to suggest acute dural sinus thrombosis or acute territorial infarct. The bilate ral M1, M2, A1 and A2 segments are patent. There is extensive calcified plaque within the bilateral c avernous carotids without significant stenosis. No central vessel occlusion is present. There is mild stenosis of the left vertebral artery as it passes through the dura. Basilar artery is patent. Poste rior cerebral arteries are patent. There is persistence of the left posterior cerebral artery. IMPRESSION: 1. No acute intracranial findings. 2. No large vessel occlusion. No intracranial aneurysm. ACT 112: Negative or not required by law. Electronically signed by: Ford Shipley M.D. 11/04/2023 3:23 PM
--- NOTE | 2023-11-04 16:06 | History & Physical Report ---
Date of Service November 04, 2023 Assessment & Plan (1) Weakness: Plan: Dizziness, weakness Patient dizziness with some vertiginous quality, however occurs and worsens with standing and improves at rest No hypotension at bedside assessment. Patient was actually hypertensive during the episode, BP has returned to normal without antihypertensive therapy in the ER Troponin is normal. No chest pain CTA head/neck are without acute findings. No focal strength deficits Multiple options including orthostatic, hypertensive, hyponatremia, and mild volume contraction with preload dependence from aortic stenosis Has had similar symptoms back in August and progressive weakness since with decreased appetite and weight loss UA is pending. No urinary symptoms Treatment of hyponatremia as below, urine studies pending as below Orthostatics ordered Patient feels greatly improved in the ER with rest and after 500 cc NSS. Will follow overnight (2) Hyponatremia: Plan: Hyponatremia With reportedly poor p.o. intake in the past, patient does drink 68 bottles of water per day. Labs overall appear slightly hemodiluted. DDx includes SIADH, solute depletion, polydipsia Urine sodium, urine osmolality ordered, serum osmolality pending (3) CAD (coronary artery disease): Plan: History of presumed CAD Follows with cardiology Troponin normal, no EKG changes Echo 08/2022 with inferior/inferoseptal wall motion abnormalities. Had not had typical anginal symptoms including chest pain. Was thought in 2022 to have had a old [place] at some point. Has followed with cardiology and has deferred cardiac cath in the past Continue aspirin, statin, metoprolol Patient denies any chest pain, chest pressure or anginal symptoms STATISTICIAN MATHEMATICAL Aortic stenosis Last echo 08/2022 Preload dependent Continue statin Patient may have been lightheaded/dizzy with reactive hypertension from volume contraction with preload dependence. Drinks a lot of water but not a particularly high amount of salt that may be solute depleted, BP is normal mucous membranes are slightly dry at bedside Anemia Patient with normal colonoscopies until these were stopped due to age. No history of personal or family history of colorectal cancer. Labs appear hemodiluted. Is newly microcytic Does have chronic hemorrhoids with some bright red blood in the toilet. Initially denied bleeding however family clarifies has had hemorrhoids and hematochezia in the past Iron studies pending, if low and hgb stable/no blood anticipated give Venofer 300mg x1, may give daily up to 2 additional doses based on duration of stay Hemoglobin trended x 2 for stability No indication for transfusion at time of admission If hemoglobin is stable, recommend outpatient GI follow-up. No epigastric tenderness, BUN is not elevated, and no signs of upper GI bleeding. (4) Hypertension: Plan: Hypertension ? Orthostatic symptoms Orthostatic vitals pending Continue metoprolol BP has normalized at time of admitting assessment Plan Chronic stable issues COPD/emphysema: No wheezing or exacerbation. Albuterol as needed Lumbar back pain, spinal stenosis with claudication: No acute focal weakness on strength testing. DVT prophylaxis: Lovenox Disposition: Medical/surgical CODE STATUS: DNR/DNI Diet: Regular History of Present Illness Primary Care Provider: Carisa Marr DO Vane Fowler is a 82-year-old male with a past medical history of pulmonary hypertension, aortic stenosis, COPD, right bundle branch block, CAD, cardiomyopathy who presents with lightheadedness/dizziness when standing. Patient had an hour to 90 minutes of symptoms where he could not stand without getting lightheaded or dizzy and came to the ER for additional evaluation. Per ER: Patient has a prior history of right bundle branch block. EKG is with nonspecific T wave changes, redemonstrated right bundle branch block. CTA is without acute findings, CThead without acute finding, chest x-ray is clear No leukocytosis. Hemoglobin 9.4 from last of 11.0, microcytic without bleeding. Troponin is normal. Sodium is low at 128. Per Patient: Normal state of health this morning. Got up and felt very dizzy, so dizzy he had to sit down. Took a nap in his recliner chair, got up and was very dizzy again. a little bit of spinning, but not much. Bp was 200s systolic, daughter in low is a dentist who came and checked BP and was very high in 200s, rechecked and was still elevated but a little better ~170s. Called ambulance for EMS transport Had an episode similar to this 1-2 years ago which was thought to be due to dehydration, resolved with fluids. Vane reports he feels he has been eating and drinking OK. "Drinks a ton of water because of being dehydrated before." Has issues with a LEFT sciatic nerve irritation so does exercises daily, but is limited in exercise due to pulmonary hypertension. Drinks 6-8 bottles of water a day thinks ~16 oz in addition to a full cup of coffee. Appetite has been OK. No chest pain or chest pressure No fevers, chills, or sweats No dysuria, no change in urination No abdominal pain. no nausea/vomiting No bleeding No bloody or black bowel movements Medical History: Reviewed Medications: Reviewed Surgical History: Reviewed Family history: Reviewed Allergies: Reviewed Social History: Reviewed. No tobacco use currently, quit age 49. Rare social beer use intermittently, otherwise denies ETOH. Code Status: DNR/DNI Allergies Allergy/AdvReac Type Severity Reaction Status Date / Time ibuprofen Allergy Intermediate Rash Verified 10/30/23 08:34 Penicillins Allergy Intermediate Rash Verified 10/30/23 08:34 ranitidine Allergy Intermediate Rash Verified 10/30/23 08:34 (stomach) meloxicam Allergy Unknown Unknown Verified 10/30/23 08:34 ramipril Allergy Unknown Verified 10/30/23 08:34 oxycodone AdvReac Severe Hallucinati Verified 10/30/23 08:34 ons propoxyphene AdvReac Severe Hallucinati Verified 10/30/23 08:34 ons pravastatin AdvReac Intermediate Joint pain Verified 10/30/23 08:34 doxycycline AdvReac Unknown Per Verified 10/30/23 08:34 records (pt denies) Home Medications Medication Instructions Recorded Confirmed Type calcium carbonate 600 mg-vitamin 1 tab PO BID 02/16/18 11/04/23 History D3 20 mcg (800 unit) chewable tablet (Caltrate 600 plus D) cholecalciferol (vitamin D3) 125 5,000 units PO QAM 02/16/18 11/04/23 History mcg (5,000 unit) tablet polyethylene glycol 3350 17 17 g PO HS 02/16/18 11/04/23 History gram/dose oral powder (Miralax) vit A 5,000 unit-C 120 mg-E 60 1 tab PO QAM 02/16/18 11/04/23 History unit-B hsgxt-fgjccjoo-lcckri tablet ER (Lipotriad (with lutein)) vitamin E acetate 134 mg (200 400 units PO Q OTHER DAY 02/16/18 11/04/23 History unit) capsule multivitamin 1 tab PO DAILY 12/29/18 11/04/23 History metoprolol succinate 25 mg 25 mg PO DAILY #90 tabs 12/16/22 11/04/23 Rx tablet,extended release 24 hr simvastatin 20 mg tablet (Zocor) 20 mg PO QPM #90 tabs 02/17/23 11/04/23 Rx loratadine 10 mg tablet (Claritin) 10 mg PO DAILY #30 tabs 05/20/23 11/04/23 Rx naproxen 500 mg tablet 500 mg PO BID #180 tabs 09/24/23 11/04/23 Rx sertraline 25 mg tablet 25 mg PO DAILY #30 tabs 09/30/23 11/04/23 Rx pantoprazole 40 mg tablet,delayed 40 mg PO DAILY 11/04/23 11/04/23 History release tamsulosin 0.4 mg capsule 0.4 mg PO HS 11/04/23 11/04/23 History tramadol 50 mg tablet 50 mg PO HS PRN pain 11/04/23 11/04/23 History Past Med/Surg History Problem List (Updated 11/04/23 @ 16:42 by Getachew Lee MD) Hyponatremia Weakness Varicose veins of both legs with edema B12 deficiency Sialorrhea Pulmonary hypertension Cardiomyopathy Aortic stenosis, mild Nasal septal deviation Hypertrophy of both inferior nasal turbinates Chronic rhinitis Lumbar back pain Thoracic back pain Coronary artery calcification RBBB Abnormal EKG COPD (chronic obstructive pulmonary disease) pt denies Prediabetes Male erectile disorder of organic origin Prostate cancer Superficial spreading malignant melanoma of skin Chronic venous insufficiency History of malignant neoplasm of prostate 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, along with aortic atherosclerosis > under surveillance Macular degeneration Left eye Osteopenia Pulmonary emphysema Pulmonary nodules "Benign" navigational bronchoscopy/biopsy (2015) Tubular adenoma of colon Vitamin D deficiency Lumbar radiculitis (Chronic) Anxiety Lumbar facet joint syndrome (Chronic) Spinal stenosis, lumbar region with neurogenic claudication (Chronic) Chronic constipation CAD (coronary artery disease) Aortic atherosclerosis Umbilical hernia Hypertension Hyperlipidemia GERD (gastroesophageal reflux disease) Osteoarthritis Medical History Personal history of malignant melanoma of skin Sacroiliitis Surgical History Status post 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 Walden 09/27/2020 H/O right inguinal hernia repair Laparoscopic Right Inguinal Hernia Repair with mesh, Open Umbilical Hernia Repair(Right) Dr. Walden 09/27/2020 History of prostate biopsy History of melanoma excision History of tooth extraction all teeth removed S/P bronchoscopy Navigational bronchoscopy (2015) History of colonoscopy History of total knee arthroplasty R/L H/O cervical spine surgery ACDF C4-5 (no ROM limitations per PAT RN interview) History of tonsillectomy and adenoidectomy Family History Father Coronary heart disease Heart disease Myocardial infarction Mother Stroke Family/Other Diabetes A-fib Lung cancer Hypertension Other No family history of adverse response to anesthesia No family history of bleeding disorder Denies family history of Ovarian cancer Prostate cancer Breast cancer Colorectal cancer Social History Smoking Status: Former smoker Tobacco Type: Cigarettes Age Started Using Tobacco: 15; Age Quit Using Tobacco: 49; Second Hand Exposure: No; Do You Dip or Chew Tobacco: No; Hx Alcohol Use: Yes Alcohol type: hard liquor Alcohol Intake Frequency: 2-4 x/Month Hx Substance Use: No Preferred Language: [place] Communication Ability: Effective Visual Impairment: No Limitations Hearing Ability: Normal 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 NAD. Cooperative. HEENT: Atraumatic, normocephalic. Vision/hearing intact. Pulm: CTAB A&P. -wheezes, -rales, -rhonchi. Symmetrical chest rise. No increased work of breathing. No respiratory distress. Cardiac: RRR, -mrg. Radial pulses intact and symmetrical. Abdominal: Nontender, nondistended, soft. BS present. Ext: warm, dry. Moves all extremities equally. No sensory or strength deficits.v Results & Data Results & Data Vital Signs (Past 12 Hours) Vital Signs Temp Pulse Pulse Resp BP BP Pulse Ox 11/04/23 15:31 67 18 97 11/04/23 15:30 70 18 114/74 94 11/04/23 13:21 58 L 21 164/70 H 98 11/04/23 13:21 97 11/04/23 13:21 36.4 C 53 L 16 164/70 H 98 11/04/23 13:13 57 L O2 Del Method 11/04/23 15:31 Room Air 11/04/23 15:30 Room Air 11/04/23 13:21 Room Air 11/04/23 13:21 Room Air 11/04/23 13:21 Room Air 11/04/23 13:13 PG Care Time/CCT Total # of Minutes Spent Total Time Spent with Patient: Total time spent is greater than 50% in coordination of care (as documented) at patient's floor/unit and/or counseling patient: Coding Level of Care Code 66849 INT INP/OBS CARE 3/75MIN Diagnoses Weakness R53.1 Hyponatremia E87.1 Coronary artery disease involving [place] coronary artery of [place] heart without angina pectoris I25.10 Coronary Disease-Associated Artery/Lesion type: [place] artery [place] vs. transplanted heart: [place] heart Associated angina: without angina Primary hypertension I10 Hypertension type: primary hypertension (3) CAD (coronary artery disease) Coronary Disease-Associated Artery/Lesion type: [place] artery [place] vs. transplanted heart: [place] heart Associated angina: without angina Qualified Code(s): I25.10 - Atherosclerotic heart disease of [place] coronary artery without angina pectoris (4) Hypertension Hypertension type: primary hypertension Qualified Code(s): I10 - Essential (primary) hypertension
[2023-11-04 17:43] LABS: Appearance Urine Clear (Clear); Bilirubin Urine Negative (Negative); Blood Urine Negative (Negative); Color Urine Yellow; Glucose Urine UA Negative (Negative); Ketones Urine Negative (Negative); Leukocyte Esterase Urine Negative (Negative); Nitrite Urine Negative (Negative); Protein Urine Negative (Negative); Specific Gravity Urine 1.017 (1.000-1.030); Urobilinogen Urine Negative (Negative)
--- NOTE | 2023-11-04 17:57 | Electrocardiogram Report ---
Test Reason : Blood Pressure : */* mmHG Vent. Rate : 57 BPM Atrial Rate : 57 BPM P-R Int : 210 ms QRS Dur : 160 ms QT Int : 466 ms P-R-T Axes : 40 -83 -76 degrees QTcB Int : 453 ms Sinus bradycardia with 1st degree A-V block with Premature atrial complexes Right bundle branch block Left anterior fascicular block Bifascicular block T wave abnormality, consider inferior ischemia Abnormal ECG When compared with ECG of 04-Aug-2022 20:06, Premature atrial complexes are now Present Nonspecific T wave abnormality, worse in Lateral leads Confirmed by Cristian Cohen ([id number]) on 11/04/2023 5:57:02 PM Referred By: Confirmed By: Cristian Cohen
[2023-11-04] MEDS ORDERED: ONDANSETRON INJ 2 MG/ML 2 ML VIAL IV PRN (20:47)
[2023-11-04] MEDS ORDERED: POLYETHYLENE (MIRALAX) 17 GM PACK PO PRN (20:47)
[2023-11-04] MEDS ORDERED: MELATONIN 3 MG TAB PO PRN (20:47)
[2023-11-04] MEDS ORDERED: ACETAMINOPHEN 325 MG TAB PO PRN (20:47)
[2023-11-04 21:38] LABS: Hematocrit (blood only) 30.3 % (42.0-52.0); Hemoglobin 9.7 g/dl (14.0-18.0)
[2023-11-04 21:40] LABS: BUN Creatinine Ratio 19.7 (10-20); Calcium 9.2 mg/dl (8.6-10.3); Creatinine Clr Calc Pharmacy 78.8 ml/min; Est GFR (African American) 100.6 ml/min; Est GFR (Non-African American) 86.8 ml/min; Potassium 3.9 mmol/L (3.5-5.1)
[2023-11-04 21:59] LABS: Ferritin 20.2 ng/ml (8-388)
[2023-11-04] MEDS: CALCIUM 600MG + VIT D 400 IU TAB PO SCH (22:54)
[2023-11-04] MEDS: TOCOPHERYL, DL-ALPHA 400 UNITS 180 MG CAP PO SCH (22:54)
[2023-11-04] MEDS: SIMVASTATIN 20 MG TAB PO SCH (22:55)
[2023-11-04] MEDS: TAMSULOSIN HCL 0.4 MG CAP PO SCH (22:56)
[2023-11-04] MEDS: POLYETHYLENE (MIRALAX) 17 GM PACK PO SCH (22:57)
[2023-11-04] MEDS: ACETAMINOPHEN 500 MG TAB PO PRN (23:24)
[2023-11-05] MEDS: traMADol HCL 50 MG TABLET PO PRN
[2023-11-05 01:25] LABS: BUN Creatinine Ratio 17.1 (10-20); Calcium 8.9 mg/dl (8.6-10.3); Creatinine Clr Calc Pharmacy 73.6 ml/min; Est GFR (African American) 97.8 ml/min; Est GFR (Non-African American) 84.4 ml/min; Potassium 3.7 mmol/L (3.5-5.1)
[2023-11-05] MEDS: NAPROXEN 250 MG TAB PO PRN (05:35)
[2023-11-05] MEDS: METOPROLOL SUCC 25MG EXT REL TAB PO SCH (07:47)
[2023-11-05] MEDS: FOLIC ACID 1 MG TAB PO SCH (08:51)
[2023-11-05] MEDS: SERTRALINE HCL 50 MG TABLET PO SCH (08:52)
[2023-11-05] MEDS: LORATADINE 10 MG TAB PO SCH (08:52)
[2023-11-05] MEDS: CYANOCOBALAMIN (B-12) 100 MCG TABLET PO SCH (08:53)
[2023-11-05] MEDS: MULTIVITAMIN TAB PO SCH (08:53)
[2023-11-05] MEDS: CHOLECALCIFEROL 125 MCG (5,000 UNITS) TAB PO SCH (08:53)
[2023-11-05] MEDS: PANTOprazole 40 MG TAB PO SCH (08:54)
[2023-11-05] MEDS ORDERED: [UNRECOGNIZED DRUG - MIXTURE] PO SCH (09:00)
[2023-11-05 09:28] LABS: Hemoglobin 9.8 g/dl (14.0-18.0); Mean Corpuscular Hemoglobin 23.1 pg (25.0-34.0); Mean Corpuscular Volume 75.5 fL (80.0-100.0); Red Blood Count 4.24 M/uL (4.70-6.10); White Blood Count 3.05 K/ul (4.8-10.8)
[2023-11-05 09:29] LABS: Basophils # (auto) 0.02 K/uL (0.00-0.20); Basophils % (auto) 0.7 %; Eosinophils # (auto) 0.03 K/uL (0.00-0.50); Immature Granulocytes # (auto) 0.01 K/uL (0.01-0.20); Immature Granulocytes % (auto) 0.3 %; Lymphocytes # (auto) 0.39 K/uL (1.20-3.40); Lymphocytes % (auto) 12.8 %; Mean Corpuscular Hgb Conc 30.6 g/dL (32.0-36.0); Monocytes # (auto) 0.42 K/uL (0.11-0.59); Monocytes % (auto) 13.8 %; Neutrophils # (auto) 2.18 K/uL (1.40-6.50); Neutrophils % (auto) 71.4 %; Platelet Count 160 K/uL (130-400); RDW Standard Deviation 43.8 fL (36.4-46.3)
[2023-11-05 09:34] LABS: BUN Creatinine Ratio 18.8 (10-20); Calcium 9.1 mg/dl (8.6-10.3); Creatinine Clr Calc Pharmacy 81.1 ml/min; Est GFR (African American) 101.8 ml/min; Est GFR (Non-African American) 87.8 ml/min; Potassium 3.8 mmol/L (3.5-5.1)
[2023-11-05] MEDS: SODIUM CHLORIDE 1 GM TABLET PO SCH (10:23)
[2023-11-05] MEDS: LOSARTAN POTASSIUM 25 MG TAB PO SCH (11:15)
[2023-11-05] MEDS: IRON SUCROSE 300 MG in SODIUM CHLORIDE 0.9% 250 ML IV ONE (11:59)
--- NOTE | 2023-11-05 12:36 | Hospitalist Progress Note ---
Date of Service November 05, 2023 Assessment & Plan (1) Weakness: Plan: Patient presented to the ED on 11/03 with complaints of dizziness and weakness. Dizziness worsen with standing and improves with rest. Etiology: orthostatic hypotension vs hypertension vs hyponatremia vs mild volume contraction w/ preload dependence from aortic stenosis UA negative for UTI BMP reviewed 11/04: sodium remains low at 129 CBC reviewed: 11/04: patient remains anemic with hgb at 9.8 Iron panel reviewed 11/04: iron 29, transferrin sat 6% s/p 500cc NSS in ED Added Losartan 25mg PO daily for patients BP. AM CBC, BMP (2) Hyponatremia: Plan: Hyponatremia With reportedly poor p.o. intake in the past, patient does drink 68 bottles of water per day. Labs overall appear slightly hemodiluted. DDx includes SIADH, solute depletion, polydipsia Urine sodium 81, urine osmolality 306, serum osmolality 270 -Sodium Chloride tablet once daily AM BMP (3) CAD (coronary artery disease): Plan: History of presumed CAD Follows with cardiology Troponin normal, no EKG changes Echo 08/2022 with inferior/inferoseptal wall motion abnormalities. Had not had typical anginal symptoms including chest pain. Was thought in 2022 to have had a old [place] at some point. 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 Drinks a lot of water but not a particularly high amount of salt that may be solute depleted, BP is normal mucous membranes are slightly dry at bedside Anemia Patient with normal colonoscopies until these were stopped due to age. No history of personal or family history of colorectal cancer. Labs appear hemodiluted. Is newly microcytic Does have chronic hemorrhoids with some bright red blood in the toilet. Initially denied bleeding however family clarifies has had hemorrhoids and hematochezia in the past - s/p 1 dose IV Venofer 11/04 No indication for transfusion If hemoglobin is stable, recommend outpatient GI follow-up. No epigastric tenderness, BUN is not elevated, and no signs of upper GI bleeding. AM CBC (4) Hypertension: Plan: Hypertension ? Orthostatic symptoms Orthostatic vitals: lying 178/81; sitting 162/66; standing 154/68 Continue metoprolol Added Losartan 25mg daily Plan PT/OT consulted due to weakness Chronic stable issues COPD/emphysema: No wheezing or exacerbation. Albuterol as needed Lumbar back pain, spinal stenosis with claudication: No acute focal weakness on strength testing. DVT prophylaxis: Lovenox Disposition: Anticipate discharge home 11/05 CODE STATUS: DNR/DNI Diet: Regular Spoke with son on phone 11/04 Admission and Anticipated Discharge Date Admission Date: November 04, 2023 Subjective Patient seen and examined this morning. Patient reports to be feeling better today. he denies any further dizziness. He reports he has a history of high blood pressure. Ramipril is listed in his allergy list but patient does not recall why. He denies any serious reactions to medications in the past that he can recall. denies chest pain or shortness of breath. Physical Exam 2 Constitutional: WD/WN, vitals as above Eyes: PERRL, conjunctivae normal, anicteric sclerae Respiratory: normal respiratory effort, lungs clear to auscultation Cardiovascular: RRR, no murmur, no edema Skin: no rashes, warm and dry Psychiatric: A+Ox3, euthymic affect Results & Data Results & Data Vital Signs (Past 12 Hours) Vital Signs Temp Pulse Resp BP Pulse Ox O2 Del Method 11/05/23 07:45 36.4 C 68 14 201/85 H 97 Room Air Laboratory Results 11/05/23 08:41 11/05/23 08:41 PG Care Time/CCT Total # of Minutes Spent Total Time Spent with Patient: Total time spent is greater than 50% in coordination of care (as documented) at patient's floor/unit and/or counseling patient: Coding Level of Care Code 61486 SUB INP/OBS CARE 3/50MIN Diagnoses Weakness R53.1 Hyponatremia E87.1 Coronary artery disease involving [place] coronary artery of [place] heart without angina pectoris I25.10 Associated angina: without angina Coronary Disease-Associated Artery/Lesion type: [place] artery [place] vs. transplanted heart: [place] heart Primary hypertension I10 Hypertension type: primary hypertension (3) CAD (coronary artery disease) Associated angina: without angina Coronary Disease-Associated Artery/Lesion type: [place] artery [place] vs. transplanted heart: [place] heart Qualified Code(s): I25.10 - Atherosclerotic heart disease of [place] coronary artery without angina pectoris (4) Hypertension Hypertension type: primary hypertension Qualified Code(s): I10 - Essential (primary) hypertension
[2023-11-06] MEDS: LACTATED RINGER'S 500 ML IV ONE (02:12)
[2023-11-06 07:10] VITALS: BP 136/77; RESP 16; TEMP 98.1; O2SAT 98
[2023-11-06] MEDS ORDERED: Nursing to Pharmacy Communication SCH (07:30)
[2023-11-06 07:59] LABS: Basophils # (auto) 0.03 K/uL (0.00-0.20); Eosinophils # (auto) 0.03 K/uL (0.00-0.50); Hematocrit (blood only) 35.4 % (42.0-52.0); Hemoglobin 10.8 g/dl (14.0-18.0); Immature Granulocytes # (auto) 0.01 K/uL (0.01-0.20); Immature Granulocytes % (auto) 0.3 %; Lymphocytes # (auto) 0.48 K/uL (1.20-3.40); Lymphocytes % (auto) 16.2 %; Mean Corpuscular Hemoglobin 23.3 pg (25.0-34.0); Mean Corpuscular Hgb Conc 30.5 g/dL (32.0-36.0); Mean Corpuscular Volume 76.5 fL (80.0-100.0); Mean Platelet Volume 8.9 fL (9.4-12.4); Monocytes # (auto) 0.37 K/uL (0.11-0.59); Monocytes % (auto) 12.5 %; Neutrophils # (auto) 2.04 K/uL (1.40-6.50); Platelet Count 172 K/uL (130-400); RDW Coefficient of Variation 16.1 % (11.5-14.5); RDW Standard Deviation 44.7 fL (36.4-46.3); Red Blood Count 4.63 M/uL (4.70-6.10); White Blood Count 2.96 K/ul (4.8-10.8)
[2023-11-06 08:25] LABS: Calcium 9.2 mg/dl (8.6-10.3); Potassium 3.9 mmol/L (3.5-5.1)
[2023-11-06 08:31] LABS: BUN Creatinine Ratio 17.9 (10-20); Creatinine Clr Calc Pharmacy 83.5 ml/min; Est GFR (Non-African American) 88.9 ml/min
[2023-11-06] MEDS: TAMSULOSIN HCL 0.4 MG CAP PO SCH (08:46)
--- NOTE | 2023-11-06 10:11 | Discharge Summary ---
Discharge Summary Date of Service November 06, 2023 Principal Dx & Hospital Course #1 = Principal Diagnosis (1) Weakness: Patient presented to the ED on 11/03 with complaints of dizziness and weakness. Dizziness worsen with standing and improves with rest. Etiology was thought to be orthostatic hypotension vs hypertension vs hyponatremia vs mild volume contraction w/ preload dependence from aortic stenosis. UA was negative for UTI. BMP on 11/05 showed improvement of sodium to 132. CBC on 11/05 showed improvement of hemoglobin to 10.8. Patient was feeling better following his iron infusion on 11/04. Losartan was added to help with patients BP which brought it down. Patient's hyponatremia likely due to the fact he was intaking too much water at home. He was averaging about 96-128oz of water daily. Patient instructed to decrease his water intake at home and follow up labs in 1 week. Patient also to follow with PCP for continued monitoring of sodium and BP. (2) Hyponatremia: Patients urine sodium 81, urine osmolality 306, serum osmolality 270. See plan above. (3) CAD (coronary artery disease): History of presumed CAD - He follows routinely with cardiology. Troponins were normal and no EKG changes. His last Echo was in August of 2022 that revealed inferior/inferoseptal wall motion abnormalities. He was continued on Aspirin, Statin, metoprolol. Patient also has hx of anemia. Has normal colonoscopies and they were stopped due to age. It is newly microcytic and iron panel was decreased. Patient s/p 1 dose IV Venofer which he felt improvement from. Patient has history of chronic constipation per his son, would be cautious starting PO iron therapy. Could consider further infusions outpatient if needed. could also consider a GI workup if the patient is interested. He is to get repeat CBC in 1 week from discharge. (4) Hypertension: Hypertension Orthostatic vitals: lying 178/81; sitting 162/66; standing 154/68 Continue metoprolol Added Losartan 25mg daily Plan Chronic stable issues COPD/emphysema: No wheezing or exacerbation. Albuterol as needed Lumbar back pain, spinal stenosis with claudication: No acute focal weakness on strength testing. Spoke with son on phone 11/05 regarding discharge instructions. Admission HPI Per Admitting Provider Vane Fowler is a 82-year-old male with a past medical history of pulmonary hypertension, aortic stenosis, COPD, right bundle branch block, CAD, cardiomyopathy who presents with lightheadedness/dizziness when standing. Patient had an hour to 90 minutes of symptoms where he could not stand without getting lightheaded or dizzy and came to the ER for additional evaluation. Per ER: Patient has a prior history of right bundle branch block. EKG is with nonspecific T wave changes, redemonstrated right bundle branch block. CTA is without acute findings, CThead without acute finding, chest x-ray is clear No leukocytosis. Hemoglobin 9.4 from last of 11.0, microcytic without bleeding. Troponin is normal. Sodium is low at 128. Per Patient: Normal state of health this morning. Got up and felt very dizzy, so dizzy he had to sit down. Took a nap in his recliner chair, got up and was very dizzy again. a little bit of spinning, but not much. Bp was 200s systolic, daughter [place] is a dentist who came and checked BP and was very high in 200s, rechecked and was still elevated but a little better ~170s. Called ambulance for EMS transport Had an episode similar to this 1-2 years ago which was thought to be due to dehydration, resolved with fluids. Vane reports he feels he has been eating and drinking OK. "Drinks a ton of water because of being dehydrated before." Has issues with a LEFT sciatic nerve irritation so does exercises daily, but is limited in exercise due to pulmonary hypertension. Drinks 6-8 bottles of water a day thinks ~16 oz in addition to a full cup of coffee. Appetite has been OK. No chest pain or chest pressure No fevers, chills, or sweats No dysuria, no change in urination No abdominal pain. no nausea/vomiting No bleeding No bloody or black bowel movements Medical History: Reviewed Medications: Reviewed Surgical History: Reviewed Family history: Reviewed Allergies: Reviewed Social History: Reviewed. No tobacco use currently, quit age 49. Rare social beer use intermittently, otherwise denies ETOH. Code Status: DNR/DNI Discharge Exam Constitutional WD/WN, vitals as above Eyes PERRL, conjunctivae normal, anicteric sclerae Respiratory normal respiratory effort, lungs clear to auscultation Cardiovascular RRR, no murmur, no edema Skin no rashes, warm and dry Psychiatric A+Ox3, euthymic affect Discharge Plan Discharge Items Patient Disposition: Home - Self-Care Reason For Visit: DIZZNESS Discharge Diagnosis: Hypertension, hyponatremia Activity: Resume your previous activity Non-emergency contact: Primary Care Provider Call non-emergency contact if: you have any medication questions and your symptoms worsen Follow-up/Referrals: Carisa Marr DO [Primary Care Provider] - 11/18/23 8:20 am Diet: Regular Ambulatory Orders: Basic Metabolic Panel (Routine) Timeframe: 20231113 Location: Determined by Patient Ordered By: Gina Arnold Complete Blood Count no Diff (Timed) Timeframe: 20231113 Location: Determined by Patient Ordered By: Gina Arnold Addtl Attending Provider Instructions: Mr. Fowler, You were recently hospitalized due to feeling dizzy and weak. You were found to have a high blood pressure and low sodium levels. We added an additional medication to help lower your blood pressure. Please see recommendations below regarding your discharge. 1. Your sodium levels were low likely because you were intaking too much water. Please decrease your water intake to about 4-6 water bottles a day (previously you mentioned drinking 6-8) 2. Please start taking Losartan 25mg once daily in the morning Please monitor your blood pressure at home and report the readings to your PCP at a follow up visit. 3. Please resume previous outpatient medications. 4. Please get repeat labs in 1 week of discharge. If you develop any worsening weakness/dizziness, chest pain, or shortness of breath please report to the ER for further care. Please follow up with PCP within 1-2 weeks of discharge. Sincerely, Gina Arnold PA-C Pending Studies at Discharge: No Stand-Alone Forms: [facility] Medications and DC Order Prescriptions: New losartan 25 mg tablet 25 mg PO DAILY Qty: 30 0RF Continued calcium carbonate-vitamin D3 [Caltrate 600 plus D] 600 mg (1,500 mg)-800 unit tablet,chewable 1 tab PO BID cholecalciferol (vitamin D3) 5,000 unit tablet 5,000 units PO QAM vits A-C-E-B [id number] [Lipotriad (with lutein)] 5,000 unit- 120 mg-60 unit tablet extended release 1 tab PO QAM polyethylene glycol 3350 [Miralax] 17 gram/dose powder 17 g PO HS vitamin E acetate 200 unit capsule 400 units PO Q OTHER DAY Patient Comments: takes in the am multivitamin tablet 1 tab PO DAILY Patient Comments: takes in the am simvastatin [Zocor] 20 mg tablet 20 mg PO QPM Qty: 90 3RF naproxen 500 mg tablet 500 mg PO BID Qty: 180 0RF sertraline 25 mg tablet 25 mg PO DAILY Qty: 30 2RF metoprolol succinate 25 mg tablet extended release 24 hr 25 mg PO DAILY Qty: 90 3RF loratadine [Claritin] 10 mg tablet 10 mg PO DAILY Qty: 30 5RF tamsulosin 0.4 mg capsule 0.4 mg PO HS pantoprazole 40 mg tablet,delayed release (DR/EC) 40 mg PO DAILY tramadol 50 mg tablet 50 mg PO HS PRN (Reason: pain) Discharge Orders: Discharge Order (Routine); Ordered 11/06/23 Ordered By: Gina Arnold Admission Data Admit Date/Time: 11/04/23 16:48 Attending Provider: Charlie East Admit Provider: Getachew Lee Primary Care Provider: Carisa Marr Other Providers: Getachew Lee Other Interventions: Discharge Summary Assessment (RN) Last Done: 11/06/23 12:07 Hospital Stay Data Consultations 11/04/23 15:59 ED Decision to Admit Stat Diagnostic Imagining Performed 11/04/23 14:04 CT angio head wo/w Stat CT angio neck with con Stat Pending Results Patient Have Any Pending Studies at Discharge: No Discharge Instructions Given to Patient (Per Discharging Provider) Michael Apodaca were recently hospitalized due to feeling dizzy and weak. You were found to have a high blood pressure and low sodium levels. We added an additional medication to help lower your blood pressure. Please see recommendations below regarding your discharge. 1. Your sodium levels were low likely because you were intaking too much water. Please decrease your water intake to about 4-6 water bottles a day (prev iously you mentioned drinking 6-8) 2. Please start taking Losartan 25mg once daily in the morning Please monitor your blood pressure at home and report the readings to your PCP at a follow up visit. 3. Please resume previous outpatient medications. 4. Please get repeat labs in 1 week of discharge. If you develop any worsening weakness/dizziness, chest pain, or shortness of breath please report to the ER for further care. Please follow up with PCP within 1-2 weeks of discharge. Sincerely, Gina Arnold PA-C Total Time Total Time Spent Total Time Spent (In Minutes): 43 Total Time Includes: Examination of the Patient, Discharge Planning and M edication Reconciliation Coding Level of Care Code 41412 INP/OBS DISCH >30 MIN Diagnoses Weakness R53.1 Hyponatremia E87.1 Coronary artery disease involving [place] coronary artery of [place] heart without angina pectoris I25.10 Associated angina: without angina Coronary Disease-Associated Artery/Lesion type: [place] artery [place] vs. transplanted heart: [place] heart Primary hypertension I10 Hypertension type: primary hypertension
[2023-11-06 12:10] VITALS: PULSE 68
== END 2023-11-06 12:40 | disposition home or self-care (01) ==
LOC: ED 12:53 → 3W 12:53 → EDINP 12:53 → SUATTDRO 16:48 → 3W 20:39

== ENCOUNTER 2023-11-15 20:17 | Inpatient (IN) ==
--- NOTE | 2023-11-15 21:01 | Emergency Department Note ---
Impression & Plan Hypotension, Hyponatremia, Anemia, Syncope ED Provider Note NAME: DREA MCDANIEL AGE: 83 SEX: M : 1940 ARRIVES VIA: Ambulance INFORMANT: [Patient][EMS] ED PROVIDER(S): [Pete Rodriguez MD] CHIEF COMPLAINT: Syncope HISTORY OF PRESENT ILLNESS: The patient is an 83-year-old male who states that he was recently in our hospital for hypertension. He had some medications changed. His losartan was increased from 25 to 50 mg. His metoprolol was decreased from 25 mg to 12.5 mg. The patient states that a short time before arrival, he was sitting in chair and he began to feel off. Something was not right. He was nauseated. He began to sweat and felt chilled. As per his family, his color seem to drain away. The patient apparently had a brief syncopal spell. Blood pressure was checked at home and it was in the 80s systolic. Right now, the patient feels back to baseline, he is without complaints. There was no chest pain, no dyspnea. The patient had not noticed any issues throughout the day today before this occurred. PMHx/PSHx/Social Hx: See Below PHYSICAL EXAM: GENERAL: Patient is in no acute distress. HEENT: No acute trauma, normocephalic atraumatic, mucous membranes moist, no nasal congestion. NECK: No stridor, no adenopathy, no meningismus, trachea is midline. LUNGS: Clear to auscultation bilaterally, no wheeze, no rhonchi, breath sounds equal. HEART: 2/6 systolic murmur heard best at the left sternal border. Rate is normal however, there is a slight irregularity to his rhythm. ABDOMEN: Soft, nontender, no peritonitis. EXTREMITIES: No cyanosis, full range of motion of all the joints without pain or difficulty. NEUROLOGIC: Oriented x 3, no acute motor or sensory deficits, no focal weakness. SKIN: No jaundice, no diaphoresis. DIFFERENTIAL DIAGNOSIS: Dysrhythmia, hypotension, anemia, AL, electrolyte imbalance, dehydration, among others. EMERGENCY DEPARTMENT PROCEDURES: MEDICAL DECISION MAKING: There is no leukocytosis. The patient is anemic however, this is baseline looking back at previous testing. There is a normal platelet count. Sodium is quite low at 125, this value today is below his typical baseline. No renal failure. No concerning liver enzyme elevation. The patient appeared to be in a euthyroid state. ECG shows a sinus bradycardia, no obvious ischemia. Cardiac enzyme testing x 1 is not consistent with acute cardiac injury. Urinalysis shows what appears to be contamination. Chest film shows atelectasis at both bases, no focal pneumonia. On exam, the patient was without complaints at the time of my evaluation. The patient received a 500 cc saline bolus. He was given oral Tylenol for some sciatica pain. The patient presents with a syncopal spell. He was hypotensive prior to arrival. His episode today may have been vasovagal however, dysrhythmia is certainly a concern. With his complaints, with the low sodium, I do think a hospital stay is warranted. I did speak with the patient and case management, the on-call hospitalist was consulted. Prior/Outside records/notes reviewed: Today's EMS notes describing his presentation and transport to this hospital. ECG per my interpretation: Indication was syncope. The ECG shows what appears to be a sinus bradycardia with a first-degree AV block and some PACs. There is a right bundle branch block. There is an old septal infarct. There are some inverted T waves in the lateral leads. No PVCs. The QTc was 396. Compared to an ECG from 04 November 2023, I see no significant change. Continuous Cardiac Monitoring per my interpretation: An order was placed for continuous cardiac monitoring. The monitor shows a rate of 65 with sinus rhythm with a first AV block. Imaging/x-ray results per my interpretation: Chest x-ray shows cardiomegaly and atelectasis at both bases. The film looks similar to previous films. Chronic Medical/Social conditions affecting care: Advanced age. Care/Management discussed with: Case management, the on-call hospitalist. Level of care consideration(s): After review of the information above and other included data: --I believe the patient requires escalation of care to admission DISPOSITION: Admission Past Med/Surg History Problem List (Updated 11/15/23 @ 23:37 by Pete Rodriguez MD) Syncope (Acute) Anemia (Acute) Hyponatremia (Acute) Hypotension (Acute) Leukopenia (Acute) Anemia (Acute) Dizziness (Acute) Acute hyponatremia (Acute) Hyponatremia Weakness Varicose veins of both legs with edema B12 deficiency Sialorrhea Pulmonary hypertension Cardiomyopathy Aortic stenosis, mild Nasal septal deviation Hypertrophy of both inferior nasal turbinates Chronic rhinitis Lumbar back pain Thoracic back pain Coronary artery calcification RBBB Abnormal EKG COPD (chronic obstructive pulmonary disease) pt denies Prediabetes Male erectile disorder of organic origin Prostate cancer Superficial spreading malignant melanoma of skin Chronic venous insufficiency History of malignant neoplasm of prostate 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, along with aortic atherosclerosis > under surveillance Macular degeneration Left eye Osteopenia Pulmonary emphysema Pulmonary nodules "Benign" navigational bronchoscopy/biopsy (2015) Tubular adenoma of colon Vitamin D deficiency Lumbar radiculitis (Chronic) Anxiety Lumbar facet joint syndrome (Chronic) Spinal stenosis, lumbar region with neurogenic claudication (Chronic) Chronic constipation CAD (coronary artery disease) Aortic atherosclerosis Umbilical hernia Hypertension Hyperlipidemia GERD (gastroesophageal reflux disease) Osteoarthritis Medical History Personal history of malignant melanoma of skin Sacroiliitis Surgical History Status post 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 Walden 09/27/2020 H/O right inguinal hernia repair Laparoscopic Right Inguinal Hernia Repair with mesh, Open Umbilical Hernia Repair(Right) Dr. Walden 09/27/2020 History of prostate biopsy History of melanoma excision History of tooth extraction all teeth removed S/P bronchoscopy Navigational bronchoscopy (2015) History of colonoscopy History of total knee arthroplasty R/L H/O cervical spine surgery ACDF C4-5 (no ROM limitations per PAT RN interview) History of tonsillectomy and adenoidectomy Family History Father Coronary heart disease Heart disease Myocardial infarction Mother Stroke Family/Other Diabetes A-fib Lung cancer Hypertension Other No family history of adverse response to anesthesia No family history of bleeding disorder Denies family history of Ovarian cancer Prostate cancer Breast cancer Colorectal cancer Social History Smoking Status: Former smoker Tobacco Type: Cigarettes Age Started Using Tobacco: 15; Age Quit Using Tobacco: 49; Second Hand Exposure: No; Do You Dip or Chew Tobacco: No; Hx Alcohol Use: No Hx Substance Use: No Preferred Language: Faroese Communication Ability: Effective Visual Impairment: No Limitations Hearing Ability: Normal 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: No Beliefs That Will Affect Care: None marital status: Current Living Situation: Alone current occupational status: retired Feels Safe at Home: Yes Childhood Exposure to Second-Hand Smoke: Yes Diet: regular Diet Comment: regular caffeine: No during the past year weight has: remained stable Dental Care, Regularly: No Physical Activity Frequency: Daily Seatbelt Use: always Sunscreen Use: No Assistive Devices: Cane, Scooter/Electric Scooter, Walker and Wheelchair Allergies Allergies Allergy/AdvReac Type Severity Reaction Status Date / Time ibuprofen Allergy Intermediate Rash Verified 11/15/23 22:23 Penicillins Allergy Intermediate Rash Verified 11/15/23 22:23 ranitidine Allergy Intermediate Rash Verified 11/15/23 22:23 (stomach) meloxicam Allergy Unknown Unknown Verified 11/15/23 22:23 ramipril Allergy Unknown Unknown Verified 11/15/23 22:23 oxycodone AdvReac Severe Hallucinati Verified 11/15/23 22:23 ons propoxyphene AdvReac Severe Hallucinati Verified 11/15/23 22:23 ons pravastatin AdvReac Intermediate Joint pain Verified 11/15/23 22:23 doxycycline AdvReac Unknown Per Verified 11/15/23 22:23 records (pt denies) Home Meds Home Medications Medication Instructions Recorded Confirmed calcium carbonate 600 mg-vitamin 1 tab PO BID 02/16/18 11/15/23 D3 20 mcg (800 unit) chewable tablet (Caltrate 600 plus D) cholecalciferol (vitamin D3) 125 5,000 units PO QAM 02/16/18 11/15/23 mcg (5,000 unit) tablet polyethylene glycol 3350 17 17 g PO HS 02/16/18 11/15/23 gram/dose oral powder (Miralax) vit A 5,000 unit-C 120 mg-E 60 1 tab PO QAM 02/16/18 11/15/23 unit-B [id number] tablet ER (Lipotriad (with lutein)) multivitamin 1 tab PO Q OTHER DAY 12/29/18 11/15/23 tamsulosin 0.4 mg capsule 0.4 mg PO HS 11/04/23 11/15/23 tramadol 50 mg tablet 50 mg PO HS PRN pain 11/04/23 11/15/23 ascorbate calcium (vitamin C) 500 500 mg PO DAILY 11/07/23 11/15/23 mg tablet aspirin 81 mg tablet,delayed 81 mg PO DAILY 11/07/23 11/15/23 release (Adult Low Dose Aspirin) fish oil 1,000 mg PO DAILY 11/07/23 11/15/23 guaifenesin 600 mg tablet, 600 mg PO DAILY 11/07/23 11/15/23 extended release 12 hr (Mucinex) pantoprazole 40 mg tablet,delayed 40 mg PO BID 11/13/23 11/15/23 release Previous Rx's Medication Instructions Recorded simvastatin 20 mg tablet (Zocor) 20 mg PO QPM #90 tabs 02/17/23 loratadine 10 mg tablet (Claritin) 10 mg PO DAILY #30 tabs 05/20/23 naproxen 500 mg tablet 500 mg PO BID #180 tabs 09/24/23 sertraline 50 mg tablet 50 mg PO DAILY #30 tabs 11/10/23 losartan 25 mg tablet 50 mg (2 x 25 mg) PO DAILY #60 tabs 11/13/23 metoprolol succinate 25 mg 12.5 mg (1/2 x 25 mg) PO DAILY #45 11/13/23 tablet,extended release 24 hr tabs Results & Data (ED) Vital Signs Vital Signs - 24 hr 11/15/23 20:23 11/15/23 20:33 11/15/23 20:42 Temperature 36.6 C Temperature Source Oral Pulse Rate 63 Pulse Rate [Apical] 57 L Respiratory Rate 20 Respiratory Effort / Characteristics Non-Labored Respiratory Depth Normal Respiratory Pattern Regular Blood Pressure [Right Arm] 170/66 H Blood Pressure Mean [Right Arm] 100 Blood Pressure Position [Right Arm] Lying Pulse Oximetry 95 Oxygen Delivery Method Room Air Sepsis Recent Fever Within 48 Hours No Sepsis New/Unexplained Change in Mental Status No Sepsis Action Taken by Nursing No Action Required 11/15/23 20:45 11/15/23 22:06 11/15/23 23:04 Temperature Temperature Source Pulse Rate 67 Pulse Rate [Apical] 60 67 Respiratory Rate 22 20 22 Respiratory Effort / Characteristics Non-Labored Non-Labored Respiratory Depth Normal Normal Respiratory Pattern Regular Regular Blood Pressure [Right Arm] 145/63 H 184/74 H Blood Pressure Mean [Right Arm] 90 110 Blood Pressure Position [Right Arm] Lying Lying Pulse Oximetry 95 97 98 Oxygen Delivery Method Room Air Room Air Room Air Sepsis Recent Fever Within 48 Hours Sepsis New/Unexplained Change in Mental Status Sepsis Action Taken by [facility] Medications Current Medication List: was personally reviewed by me Laboratory Data Attestation: I reviewed the patient's lab results. 11/15/23 20:30 11/15/23 20:30 Lab Results 11/15/23 11/15/23 Range/Units 20:30 20:45 WBC 4.14 L (4.8-10.8) K/ul RBC 3.87 L (4.70-6.10) M/uL Hgb 9.3 L (14.0-18.0) g/dl Hct 29.5 L (42.0-52.0) % MCV 76.2 L (80.0-100.0) fL MCH 24.0 L (25.0-34.0) pg MCHC 31.5 L (32.0-36.0) g/dL RDW Std Deviation 47.1 H (36.4-46.3) fL RDW Coeff of Brian 17.6 H (11.5-14.5) % Plt Count 152 (130-400) K/uL MPV 9.7 (9.4-12.4) fL Immature Gran % (Auto) 0.7 % Neut % (Auto) 74.9 % Lymph % (Auto) 11.8 % [place] % (Auto) 11.4 % Eos % (Auto) 0.5 % Baso % (Auto) 0.7 % Neut # (Auto) 3.10 (1.40-6.50) K/uL Lymph # (Auto) 0.49 L (1.20-3.40) K/uL [place] # (Auto) 0.47 (0.11-0.59) K/uL Eos # (Auto) 0.02 (0.00-0.50) K/uL Baso # (Auto) 0.03 (0.00-0.20) K/uL Immature Gran # (Auto) 0.03 (0.01-0.20) K/uL Sodium 125 L (136-145) mmol/L Potassium 3.9 (3.5-5.1) mmol/L Chloride 92 L (98-107) mmol/L Carbon Dioxide 26 (21-32) mmol/L Anion Gap 7 (3-11) BUN 19 (6-23) mg/dl Creatinine 0.91 (0.6-1.4) mg/dl Est Cr Clr Drug Dosing 60.4 ml/min Est GFR ( Amer) 89.4 ml/min Est GFR (Non-Af Amer) 77.1 ml/min BUN/Creatinine Ratio 20.9 H (10-20) Glucose 104 H (70-99(Fasting)) mg/dl Calcium 8.7 (8.6-10.3) mg/dl Magnesium 1.7 (1.7-2.4) mg/dl Total Bilirubin 0.5 (0.2-1.0) mg/dl AST 18 (13-39) U/L ALT 10 (7-52) U/L Alkaline Phosphatase 39 (34-104) U/L Troponin I High Sens 8.4 (0-20) pg/ml Total Protein 5.8 L (6.0-8.3) gm/dl Albumin 4.1 (3.4-5.0) gm/dl Globulin 1.7 L (2.5-4.0) gm/dl Albumin/Globulin Ratio 2.4 H (0.9-2) TSH 3.466 (0.300-4.500) uIu/ml Urine Color Yellow Urine Appearance Cloudy A (Clear) Urine pH 8.5 H (4.5-7.5) Ur Specific [place] 1.016 (1.000-1.030) Urine Protein Negative (Negative) Urine Glucose (UA) Negative (Negative) Urine Ketones Negative (Negative) Urine Blood Negative (Negative) Urine Nitrite Negative (Negative) Urine Bilirubin Negative (Negative) Urine Urobilinogen Negative (Negative) Ur Leukocyte Esterase 1+ H (Negative) Urine WBC (Auto) 6-10 H (0-5) /hpf Urine RBC (Auto) 0-2 (0-2) /hpf U Hyaline Cast (Auto) 3-5 H (0-2) /lpf U Epithel Cells (Auto) 0-2 (0-2) /hpf Urine Bacteria (Auto) None Seen (None Seen) Administered Medications Discontinued Medications Acetaminophen (Acetaminophen 500 Mg Tab) 1,000 mg PO NOW STA Stop: 11/15/23 22:23 Last Admin: 11/15/23 22:55 Dose: 1,000 mg Documented By: THANG Sodium Chloride (Nss) 500 mls @ 999 mls/hr IV .Q31M ONE Stop: 11/15/23 21:57 Last Infusion: 11/15/23 22:15 Dose: Infused Documented By: Admin: 11/15/23 21:33 Dose: 999 mls/hr Documented By: THANG Discharge Plan Visit Data Chief Complaint: Syncope (Near Syncope) Stated Complaint: Near Syncope, Hypotension ED Provider: Pete Rodriguez Discharge Problem: Hypotension, Hyponatremia, Anemia, Syncope Patient Disposition: Admitted As Inpatient Condition: Fair Forms Stand Alone Forms: My [facility] [place] Prescriptions Prescriptions: No Action calcium carbonate-vitamin D3 [Caltrate 600 plus D] 600 mg (1,500 mg)-800 unit tablet,chewable 1 tab PO BID cholecalciferol (vitamin D3) 5,000 unit tablet 5,000 units PO QAM vits A-C-E-B [id number] [Lipotriad (with lutein)] 5,000 unit- 120 mg-60 unit tablet extended release 1 tab PO QAM polyethylene glycol 3350 [Miralax] 17 gram/dose powder 17 g PO HS multivitamin tablet 1 tab PO Q OTHER DAY Patient Comments: takes in the am simvastatin [Zocor] 20 mg tablet 20 mg PO QPM Qty: 90 3RF naproxen 500 mg tablet 500 mg PO BID Qty: 180 0RF sertraline 50 mg tablet 50 mg PO DAILY Qty: 30 2RF loratadine [Claritin] 10 mg tablet 10 mg PO DAILY Qty: 30 5RF losartan 25 mg tablet 50 mg PO DAILY Qty: 60 2RF metoprolol succinate 25 mg tablet extended release 24 hr 12.5 mg PO DAILY Qty: 45 2RF pantoprazole 40 mg tablet,delayed release (DR/EC) 40 mg PO BID aspirin [Adult Low Dose Aspirin] 81 mg tablet,delayed release (DR/EC) 81 mg PO DAILY ascorbate calcium (vitamin C) 500 mg tablet 500 mg PO DAILY fish oil 1,000 mg PO DAILY guaifenesin [Mucinex] 600 mg tablet extended release 12hr 600 mg PO DAILY tamsulosin 0.4 mg capsule 0.4 mg PO HS tramadol 50 mg tablet 50 mg PO HS PRN (Reason: pain) Referrals Referrals: Carisa Marr DO [Primary Care Provider] - Discharge Problem: Hypotension Qualifiers: Hypotension type: unspecified hypotension type Qualified Code(s): I95.9 - Hypotension, unspecified Anemia Qualifiers: Anemia type: unspecified type Qualified Code(s): D64.9 - Anemia, unspecified Syncope Qualifiers: Syncope type: unspecified Qualified Code(s): R55 - Syncope and collapse
[2023-11-15 21:19] LABS: Albumin Globulin Ratio 2.4 (0.9-2); Albumin Level 4.1 gm/dl (3.4-5.0); BUN Creatinine Ratio 20.9 (10-20); Bilirubin,Total 0.5 mg/dl (0.2-1.0); Calcium 8.7 mg/dl (8.6-10.3); Creatinine Clr Calc Pharmacy 60.4 ml/min; Est GFR (African American) 89.4 ml/min; Est GFR (Non-African American) 77.1 ml/min; Globulin 1.7 gm/dl (2.5-4.0); Magnesium 1.7 mg/dl (1.7-2.4); Potassium 3.9 mmol/L (3.5-5.1); Total Protein 5.8 gm/dl (6.0-8.3)
[2023-11-15 21:23] LABS: Appearance Urine Cloudy (Clear); Bacteria Urine Automated None Seen (None Seen); Bilirubin Urine Negative (Negative); Blood Urine Negative (Negative); Color Urine Yellow; Epithelial Cell Urine Auto 0-2 /hpf (0-2); Glucose Urine UA Negative (Negative); Ketones Urine Negative (Negative); Leukocyte Esterase Urine 1+ (Negative); Nitrite Urine Negative (Negative); Protein Urine Negative (Negative); RBC Urine Automated 0-2 /hpf (0-2); Specific Gravity Urine 1.016 (1.000-1.030); Urobilinogen Urine Negative (Negative); pH Urine 8.5 (4.5-7.5)
[2023-11-15 21:26] LABS: Troponin I High Sensitivity 8.4 pg/ml (0-20)
[2023-11-15] MEDS: SODIUM CHLORIDE 0.9% 500 ML IV ONE (21:33)
[2023-11-15 21:35] LABS: Thyroid Stimulating Hormone 3.466 uIu/ml (0.300-4.500)
[2023-11-15 21:37] LABS: Basophils # (auto) 0.03 K/uL (0.00-0.20); Basophils % (auto) 0.7 %; Eosinophils # (auto) 0.02 K/uL (0.00-0.50); Eosinophils % (auto) 0.5 %; Hematocrit (blood only) 29.5 % (42.0-52.0); Hemoglobin 9.3 g/dl (14.0-18.0); Immature Granulocytes # (auto) 0.03 K/uL (0.01-0.20); Immature Granulocytes % (auto) 0.7 %; Lymphocytes # (auto) 0.49 K/uL (1.20-3.40); Lymphocytes % (auto) 11.8 %; Mean Corpuscular Hgb Conc 31.5 g/dL (32.0-36.0); Mean Corpuscular Volume 76.2 fL (80.0-100.0); Mean Platelet Volume 9.7 fL (9.4-12.4); Monocytes # (auto) 0.47 K/uL (0.11-0.59); Monocytes % (auto) 11.4 %; Neutrophils % (auto) 74.9 %; Platelet Count 152 K/uL (130-400); RDW Coefficient of Variation 17.6 % (11.5-14.5); RDW Standard Deviation 47.1 fL (36.4-46.3); Red Blood Count 3.87 M/uL (4.70-6.10); White Blood Count 4.14 K/ul (4.8-10.8)
[2023-11-15] MEDS: ACETAMINOPHEN 500 MG TAB PO STA (22:55)
[2023-11-15] MEDS ORDERED: STAT IV/IM STA (23:15)
--- NOTE | 2023-11-15 23:23 | History & Physical Report ---
Date of Service November 15, 2023 Assessment & Plan (1) Hyponatremia: (2) Excessive fluid intake: (3) Syncope: (4) Varicose veins of both legs with edema: (5) Pulmonary hypertension: (6) Cardiomyopathy: (7) Aortic stenosis, mild: (8) COPD (chronic obstructive pulmonary disease): (9) Prostate cancer: (10) Spinal stenosis, lumbar region with neurogenic claudication: (11) Chronic constipation: (12) CAD (coronary artery disease): (13) Hypertension: (14) Hyperlipidemia: (15) GERD (gastroesophageal reflux disease): Plan Syncope- Likely secondary to hyponatremia Patient had recently been admitted to [facility] from 11/03-11/05/2023, at that time sodium was 128, and increased to 132 at time of discharge. Serum osmolality headed to 78 and urine osmolality 306 Patient had been advised to decrease his fluid intake Discussion with patient and son in the ED, reveals that the patient would drink 16.9 ounce bottles of water, 6-8 daily. Since that discharge, patient has decreased the number of 16.9 ounce bottles to 3-4 daily, and in addition, he drinks at least 1 of these bottles mixed with juice daily Patient also drinks coffee on a daily basis as well Patient is still drinking excessive amounts of fluids, which are leading to hyponatremia. Patient will be placed on 1500 mL fluid restriction Will give hypertonic saline 50 mL 3% x 1 now, Give sodium chloride 1 g p.o. now, and placed on twice daily Repeat laboratories in the a.m. Patient will need to have further restriction and fluid intake at home, and that should be very specifically state him a much fluid he should drink including water, juices and coffee Patient has dry mouth associated with mouth breathing secondary to nasal congestion Suggested that he gets a nasal irrigation system to clear his nose, so he does not mouth breathe, so dizzy and dry mouth, so he does not want to keep drinking lots of liquids. Hypertension/CAD/mild aortic stenosis/venous insufficiency close veins bilaterally- Continue aspirin, metoprolol succinate and losartan Would avoid naproxen, as this is likely contributing to his intermittent lower extremity edema BPH with LUTS- Continue tamsulosin History of Present Illness Chief Complaint: The patient presents to the emergency department due to a syncopal episode that was preceded by nausea, chills and sweats, and family noted that his color seemed to be more pale than usual. His blood pressure was checked at home, and systolic blood pressure was found to be in 80s, and he was brought to the emergency department for assessment. Primary Care Provider: Carisa Marr DO The patient is an 83-year-old male with past medical history including hypertension hyponatremia, varicose veins bilateral extremities, B12 deficiency, pulm hypertension, cardiomyopathy, mild aortic stenosis, CAD, right bundle branch block, COPD, generation, anxiety, lumbar facet joint syndrome, lumbar spinal stenosis with neurogenic claudication, GERD hyperlipidemia and osteoarthritis. The patient is most recent admitted admitted from 11/03-11/06/2023 due to generalized weakness, sodium 128 that improved 132 but, discharge, a serum osmolality of 270 with urine osmolality of 306. The patient was found to have a sodium of 125 in the ED this evening, and was referred for evaluation for admission Allergies Allergy/AdvReac Type Severity Reaction Status Date / Time ibuprofen Allergy Intermediate Rash Verified 11/15/23 22:23 Penicillins Allergy Intermediate Rash Verified 11/15/23 22:23 ranitidine Allergy Intermediate Rash Verified 11/15/23 22:23 (stomach) meloxicam Allergy Unknown Unknown Verified 11/15/23 22:23 ramipril Allergy Unknown Unknown Verified 11/15/23 22:23 oxycodone AdvReac Severe Hallucinati Verified 11/15/23 22:23 ons propoxyphene AdvReac Severe Hallucinati Verified 11/15/23 22:23 ons pravastatin AdvReac Intermediate Joint pain Verified 11/15/23 22:23 doxycycline AdvReac Unknown Per Verified 11/15/23 22:23 records (pt denies) Home Medications Medication Instructions Recorded Confirmed Type calcium carbonate 600 mg-vitamin 1 tab PO BID 02/16/18 11/15/23 History D3 20 mcg (800 unit) chewable tablet (Caltrate 600 plus D) cholecalciferol (vitamin D3) 125 5,000 units PO QAM 02/16/18 11/15/23 History mcg (5,000 unit) tablet polyethylene glycol 3350 17 17 g PO HS 02/16/18 11/15/23 History gram/dose oral powder (Miralax) vit A 5,000 unit-C 120 mg-E 60 1 tab PO QAM 02/16/18 11/15/23 History unit-B [id number] tablet ER (Lipotriad (with lutein)) multivitamin 1 tab PO Q OTHER DAY 12/29/18 11/15/23 History simvastatin 20 mg tablet (Zocor) 20 mg PO QPM #90 tabs 02/17/23 11/15/23 Rx loratadine 10 mg tablet (Claritin) 10 mg PO DAILY #30 tabs 05/20/23 11/15/23 Rx naproxen 500 mg tablet 500 mg PO BID #180 tabs 09/24/23 11/15/23 Rx tamsulosin 0.4 mg capsule 0.4 mg PO HS 11/04/23 11/15/23 History tramadol 50 mg tablet 50 mg PO HS PRN pain 11/04/23 11/15/23 History ascorbate calcium (vitamin C) 500 500 mg PO DAILY 11/07/23 11/15/23 History mg tablet aspirin 81 mg tablet,delayed 81 mg PO DAILY 11/07/23 11/15/23 History release (Adult Low Dose Aspirin) fish oil 1,000 mg PO DAILY 11/07/23 11/15/23 History guaifenesin 600 mg tablet, 600 mg PO DAILY 11/07/23 11/15/23 History extended release 12 hr (Mucinex) sertraline 50 mg tablet 50 mg PO DAILY #30 tabs 11/10/23 11/15/23 Rx losartan 25 mg tablet 50 mg (2 x 25 mg) PO DAILY #60 tabs 11/13/23 11/15/23 Rx metoprolol succinate 25 mg 12.5 mg (1/2 x 25 mg) PO DAILY #45 11/13/23 11/15/23 Rx tablet,extended release 24 hr tabs pantoprazole 40 mg tablet,delayed 40 mg PO BID 11/13/23 11/15/23 History release Past Med/Surg History Problem List (Updated 11/16/23 @ 06:09 by Keith Mosquera MD) Excessive fluid intake Syncope (Acute) Anemia (Acute) Hyponatremia (Acute) Hypotension (Acute) Leukopenia (Acute) Anemia (Acute) Dizziness (Acute) Acute hyponatremia (Acute) Hyponatremia Weakness Varicose veins of both legs with edema B12 deficiency Sialorrhea Pulmonary hypertension Cardiomyopathy Aortic stenosis, mild Nasal septal deviation Hypertrophy of both inferior nasal turbinates Chronic rhinitis Lumbar back pain Thoracic back pain Coronary artery calcification RBBB Abnormal EKG COPD (chronic obstructive pulmonary disease) pt denies Prediabetes Male erectile disorder of organic origin Prostate cancer Superficial spreading malignant melanoma of skin Chronic venous insufficiency History of malignant neoplasm of prostate 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, along with aortic atherosclerosis > under surveillance Macular degeneration Left eye Osteopenia Pulmonary emphysema Pulmonary nodules "Benign" navigational bronchoscopy/biopsy (2015) Tubular adenoma of colon Vitamin D deficiency Lumbar radiculitis (Chronic) Anxiety Lumbar facet joint syndrome (Chronic) Spinal stenosis, lumbar region with neurogenic claudication (Chronic) Chronic constipation CAD (coronary artery disease) Aortic atherosclerosis Umbilical hernia Hypertension Hyperlipidemia GERD (gastroesophageal reflux disease) Osteoarthritis Medical History Personal history of malignant melanoma of skin Sacroiliitis Surgical History Status post 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 Walden 09/27/2020 H/O right inguinal hernia repair Laparoscopic Right Inguinal Hernia Repair with mesh, Open Umbilical Hernia Repair(Right) Dr. Walden 09/27/2020 History of prostate biopsy History of melanoma excision History of tooth extraction all teeth removed S/P bronchoscopy Navigational bronchoscopy (2015) History of colonoscopy History of total knee arthroplasty R/L H/O cervical spine surgery ACDF C4-5 (no ROM limitations per PAT RN interview) History of tonsillectomy and adenoidectomy Family History Father Coronary heart disease Heart disease Myocardial infarction Mother Stroke Family/Other Diabetes A-fib Lung cancer Hypertension Other No family history of adverse response to anesthesia No family history of bleeding disorder Denies family history of Ovarian cancer Prostate cancer Breast cancer Colorectal cancer Social History Smoking Status: Former smoker Tobacco Type: Cigarettes Age Started Using Tobacco: 15; Age Quit Using Tobacco: 49; Second Hand Exposure: No; Do You Dip or Chew Tobacco: No; Hx Alcohol Use: No Hx Substance Use: No Preferred Language: [place] Communication Ability: Effective Visual Impairment: No Limitations Hearing Ability: Normal Medical Research Associate Required: No Beliefs That Will Affect Care: None marital status: Current Living Situation: Alone current occupational status: retired Feels Safe at Home: Yes Safety Concerns: Feels Safe At This Time Childhood Exposure to Second-Hand Smoke: Yes Diet: regular Diet Comment: regular caffeine: No during the past year weight has: remained stable Dental Care, Regularly: No Physical Activity Frequency: Daily Seatbelt Use: always Sunscreen Use: No Assistive Devices: Cane, Denture - Upper, Denture - Lower and Glasses Review of Systems Review of Systems: The patient denies chest pain, palpitations, shortness of breath, dyspnea on exertion, cough, lower extremity swelling, sore throat, fevers, chills, sweats, weight change, vomiting, diarrhea , constipation, abdominal pain, pelvic pain, blood in urine or stool, dysuria, urinary frequency or urgency, rash, abnormal bruising or bleeding, Focal weakness, numbness or tingling in arms or legs, generalized arthralgias or myalgias, back or neck pain, or night sweats. The review of systems is otherwise negative other than for that already noted above, and at least 10 systems have been reviewed. Physical Exam Physical Exam: The patient is awake, alert and oriented 3, well developed and well nourished, normocephalic and atraumatic, lying in bed and in no acute distress. HEENT--PERRL, EOMI, mucous membranes and oropharynx mildly dry. Neck--supple. No JVD. No bruits. Thyroid normal, trachea midline, no adenopathy. Heart--normal S1 and S2. No murmurs, rubs or gallops. Lungs--clear bilaterally, no respiratory distress, no accessory muscle use. Abdomen--normal bowel sounds and soft. Nontender. Nondistended, no hernias or masses, no organomegaly. Extremities-- No edema. Dermatologic--normal skin turgor, normal color, no abnormal lymph nodes, no rash. Neurologic--cranial nerves II through XII grossly intact. Rheumatologic--normal range of motion. Psychiatric--normal affect. Results & Data Results & Data Vital Signs (Past 12 Hours) Vital Signs Temp Pulse Pulse Resp BP Pulse Ox O2 Del Method 11/15/23 23:04 67 22 184/74 H 98 Room Air 11/15/23 22:06 60 20 145/63 H 97 Room Air 11/15/23 20:45 67 22 95 Room Air 11/15/23 20:33 63 11/15/23 20:23 36.6 C 57 L 20 170/66 H 95 Room Air Laboratory Results Laboratory Results WBC 4.14 K/ul (4.8-10.8) L 11/15/23 20:30 RBC 3.87 M/uL (4.70-6.10) L 11/15/23 20:30 Hgb 9.3 g/dl (14.0-18.0) L 11/15/23 20:30 Hct 29.5 % (42.0-52.0) L 11/15/23 20:30 MCV 76.2 fL (80.0-100.0) L 11/15/23 20:30 MCH 24.0 pg (25.0-34.0) L 11/15/23 20:30 MCHC 31.5 g/dL (32.0-36.0) L 11/15/23 20:30 RDW Std Deviation 47.1 fL (36.4-46.3) H 11/15/23 20:30 RDW Coeff of Brian 17.6 % (11.5-14.5) H 11/15/23 20:30 Plt Count 152 K/uL (130-400) 11/15/23 20:30 MPV 9.7 fL (9.4-12.4) 11/15/23 20:30 Immature Gran % (Auto) 0.7 % 11/15/23 20:30 Neut % (Auto) 74.9 % 11/15/23 20:30 Lymph % (Auto) 11.8 % 11/15/23 20:30 Williams % (Auto) 11.4 % 11/15/23 20:30 Eos % (Auto) 0.5 % 11/15/23 20:30 Baso % (Auto) 0.7 % 11/15/23 20:30 Neut # (Auto) 3.10 K/uL (1.40-6.50) 11/15/23 20:30 Lymph # (Auto) 0.49 K/uL (1.20-3.40) L 11/15/23 20:30 Williams # (Auto) 0.47 K/uL (0.11-0.59) 11/15/23 20:30 Eos # (Auto) 0.02 K/uL (0.00-0.50) 11/15/23 20:30 Baso # (Auto) 0.03 K/uL (0.00-0.20) 11/15/23 20:30 Immature Gran # (Auto) 0.03 K/uL (0.01-0.20) 11/15/23 20:30 Sodium 125 mmol/L (136-145) L 11/15/23 20:30 Potassium 3.9 mmol/L (3.5-5.1) 11/15/23 20:30 Chloride 92 mmol/L (98-107) L 11/15/23 20:30 Carbon Dioxide 26 mmol/L (21-32) 11/15/23 20:30 Anion Gap 7 (3-11) 11/15/23 20:30 BUN 19 mg/dl (6-23) 11/15/23 20:30 Creatinine 0.91 mg/dl (0.6-1.4) 11/15/23 20:30 Est Cr Clr Drug Dosing 60.4 ml/min 11/15/23 20:30 Est GFR ( Amer) 89.4 ml/min 11/15/23 20:30 Est GFR (Non-Af Amer) 77.1 ml/min 11/15/23 20:30 BUN/Creatinine Ratio 20.9 (10-20) H 11/15/23 20:30 Glucose 104 mg/dl (70-99(Fasting)) H 11/15/23 20:30 Calcium 8.7 mg/dl (8.6-10.3) 11/15/23 20:30 Magnesium 1.7 mg/dl (1.7-2.4) 11/15/23 20:30 Total Bilirubin 0.5 mg/dl (0.2-1.0) 11/15/23 20:30 AST 18 U/L (13-39) 11/15/23 20:30 ALT 10 U/L (7-52) 11/15/23 20:30 Alkaline Phosphatase 39 U/L (34-104) 11/15/23 20:30 Troponin I High Sens 8.4 pg/ml (0-20) 11/15/23 20:30 Total Protein 5.8 gm/dl (6.0-8.3) L 11/15/23 20:30 Albumin 4.1 gm/dl (3.4-5.0) 11/15/23 20:30 Globulin 1.7 gm/dl (2.5-4.0) L 11/15/23 20:30 Albumin/Globulin Ratio 2.4 (0.9-2) H 11/15/23 20:30 TSH 3.466 uIu/ml (0.300-4.500) 11/15/23 20:30 Urine Color Yellow 11/15/23 20:45 Urine Appearance Cloudy (Clear) A 11/15/23 20:45 Urine pH 8.5 (4.5-7.5) H 11/15/23 20:45 Ur Specific [place] 1.016 (1.000-1.030) 11/15/23 20:45 Urine Protein Negative (Negative) 11/15/23 20:45 Urine Glucose (UA) Negative (Negative) 11/15/23 20:45 Urine Ketones Negative (Negative) 11/15/23 20:45 Urine Blood Negative (Negative) 11/15/23 20:45 Urine Nitrite Negative (Negative) 11/15/23 20:45 Urine Bilirubin Negative (Negative) 11/15/23 20:45 Urine Urobilinogen Negative (Negative) 11/15/23 20:45 Ur Leukocyte Esterase 1+ (Negative) H 11/15/23 20:45 Urine WBC (Auto) 6-10 /hpf (0-5) H 11/15/23 20:45 Urine RBC (Auto) 0-2 /hpf (0-2) 11/15/23 20:45 U Hyaline Cast (Auto) 3-5 /lpf (0-2) H 11/15/23 20:45 U Epithel Cells (Auto) 0-2 /hpf (0-2) 11/15/23 20:45 Urine Bacteria (Auto) None Seen (None Seen) 11/15/23 20:45 Code Status & VTE Plan Code Status DNR/DNI VTE Prophylaxis Plan VTE Prophylaxis will be ordered: Yes PG Care Time/CCT Total # of Minutes Spent Total Time Spent with Patient: Total time spent is greater than 50% in coordination of care (as documented) at patient's floor/unit and/or counseling patient: Coding Level of Care Code 40755 INT INP/OBS CARE MIN Diagnoses Hyponatremia E87.1 Excessive fluid intake R63.8 Syncope R55 Syncope type: unspecified Varicose veins of both legs with edema I83.893 Pulmonary hypertension I27.20 Ischemic cardiomyopathy I25.5 Cardiomyopathy type: ischemic Aortic stenosis, mild I35.0 COPD (chronic obstructive pulmonary disease) J44.9 Prostate cancer C61 Spinal stenosis, lumbar region with neurogenic claudication M48.062 Chronic constipation K59.09 Coronary artery disease involving [place] coronary artery of [place] heart without angina pectoris I25.10 Coronary Disease-Associated Artery/Lesion type: [place] artery [place] vs. transplanted heart: [place] heart Associated angina: without angina Primary hypertension I10 Hypertension type: primary hypertension Hyperlipidemia, unspecified hyperlipidemia type E78.5 Hyperlipidemia type: unspecified GERD (gastroesophageal reflux disease) K21.9 (3) Syncope Syncope type: unspecified Qualified Code(s): R55 - Syncope and collapse (6) Cardiomyopathy Cardiomyopathy type: ischemic Qualified Code(s): I25.5 - Ischemic cardiomyopathy (12) CAD (coronary artery disease) Coronary Disease-Associated Artery/Lesion type: [place] artery [place] vs. transplanted heart: [place] heart Associated angina: without angina Qualified Code(s): I25.10 - Atherosclerotic heart disease of [place] coronary artery without angina pectoris (13) Hypertension Hypertension type: primary hypertension Qualified Code(s): I10 - Essential (primary) hypertension (14) Hyperlipidemia Hyperlipidemia type: unspecified Qualified Code(s): E78.5 - Hyperlipidemia, unspecified
[2023-11-15] MEDS: SODIUM CHLORIDE 3 % 50 ML IV ONE (23:56)
[2023-11-16] MEDS: SODIUM CHLORIDE 1 GM TABLET PO STA (00:03)
[2023-11-16] MEDS ORDERED: traMADol HCL 50 MG TABLET PO PRN (01:34)
[2023-11-16] MEDS ORDERED: ONDANSETRON INJ 2 MG/ML 2 ML VIAL IV PRN (01:34)
[2023-11-16 06:44] LABS: Basophils # (auto) 0.02 K/uL (0.00-0.20); Basophils % (auto) 0.7 %; Eosinophils # (auto) 0.02 K/uL (0.00-0.50); Eosinophils % (auto) 0.7 %; Hemoglobin 9.1 g/dl (14.0-18.0); Immature Granulocytes # (auto) 0.01 K/uL (0.01-0.20); Immature Granulocytes % (auto) 0.3 %; Lymphocytes # (auto) 0.51 K/uL (1.20-3.40); Lymphocytes % (auto) 16.8 %; Mean Corpuscular Hgb Conc 32.5 g/dL (32.0-36.0); Mean Corpuscular Volume 73.9 fL (80.0-100.0); Mean Platelet Volume 9.2 fL (9.4-12.4); Monocytes % (auto) 13.2 %; Neutrophils # (auto) 2.07 K/uL (1.40-6.50); Neutrophils % (auto) 68.3 %; Platelet Count 138 K/uL (130-400); RDW Coefficient of Variation 17.5 % (11.5-14.5); RDW Standard Deviation 45.9 fL (36.4-46.3); Red Blood Count 3.79 M/uL (4.70-6.10); White Blood Count 3.03 K/ul (4.8-10.8)
[2023-11-16 06:56] LABS: Albumin Globulin Ratio 2.4 (0.9-2); Albumin Level 3.9 gm/dl (3.4-5.0); BUN Creatinine Ratio 19.8 (10-20); Bilirubin,Total 0.5 mg/dl (0.2-1.0); Calcium 8.9 mg/dl (8.6-10.3); Creatinine Clr Calc Pharmacy 67.9 ml/min; Est GFR (African American) 94.6 ml/min; Est GFR (Non-African American) 81.6 ml/min; Globulin 1.6 gm/dl (2.5-4.0); Magnesium 1.7 mg/dl (1.7-2.4); Potassium 3.8 mmol/L (3.5-5.1); Total Protein 5.5 gm/dl (6.0-8.3)
[2023-11-16] MEDS: LORATADINE 10 MG TAB PO SCH (08:15)
[2023-11-16] MEDS: PANTOprazole 40 MG TAB PO SCH (08:15)
[2023-11-16] MEDS: OMEGA-3 (PURIFIED FISH OIL) 1 GM CAP PO SCH (08:15)
[2023-11-16] MEDS: CALCIUM 600MG + VIT D 400 IU TAB PO SCH (08:15)
[2023-11-16] MEDS: guaiFENesin 600 MG TABCR PO SCH (08:15)
[2023-11-16] MEDS: LOSARTAN POTASSIUM 50 MG TAB PO SCH (08:15)
[2023-11-16] MEDS: ASCORBIC ACID 500 MG TAB PO SCH (08:15)
[2023-11-16] MEDS: ASPIRIN 81 MG ECTAB PO SCH (08:15)
[2023-11-16] MEDS: METOPROLOL SUCC 25MG EXT REL TAB PO SCH (08:17)
[2023-11-16] MEDS: SODIUM CHLORIDE 1 GM TABLET PO SCH (08:18)
[2023-11-16] MEDS: SERTRALINE HCL 50 MG TABLET PO SCH (08:18)
[2023-11-16] MEDS: CHOLECALCIFEROL 125 MCG (5,000 UNITS) TAB PO SCH (08:18)
[2023-11-16] MEDS: FERROUS GLUCONATE 324 MG TAB PO SCH (08:41)
--- NOTE | 2023-11-16 08:41 | XRay Report ---
XR chest 1V portable CLINICAL HISTORY: weakness TECHNIQUE: Single frontal radiograph of the chest was obtained. Comparison: Comparison is made to chest radiograph 11/04/2023 FINDINGS: No lines and tubes are seen. The cardiomediastinal silhouette is normal. Lungs are underinflated but clear apart from bibasilar atelectasis. No evidence of pleural effusion or pneumothorax. IMPRESSION: Bibasilar atelectasis. No acute abnormalities. ACT 112: Negative or not required by law. Electronically signed by: Sigifredo Diego M.D. 11/16/2023 8:40 AM
[2023-11-16 08:43] LABS: BUN Creatinine Ratio 19.5 (10-20); Calcium 8.8 mg/dl (8.6-10.3); Creatinine Clr Calc Pharmacy 71.4 ml/min; Est GFR (African American) 96.6 ml/min; Est GFR (Non-African American) 83.3 ml/min
[2023-11-16] MEDS ORDERED: [UNRECOGNIZED DRUG - MIXTURE] PO SCH (09:00)
[2023-11-16] MEDS: ACETAMINOPHEN 325 MG TAB PO PRN (11:03)
[2023-11-16 12:24] LABS: Calcium 8.8 mg/dl (8.6-10.3); Creatinine Clr Calc Pharmacy 69.6 ml/min; Est GFR (African American) 95.6 ml/min; Est GFR (Non-African American) 82.5 ml/min; Potassium 4.1 mmol/L (3.5-5.1)
[2023-11-16 16:46] LABS: BUN Creatinine Ratio 16.5 (10-20); Calcium 9.2 mg/dl (8.6-10.3); Creatinine Clr Calc Pharmacy 56.7 ml/min; Est GFR (African American) 82.7 ml/min; Est GFR (Non-African American) 71.4 ml/min; Potassium 4.1 mmol/L (3.5-5.1)
[2023-11-16 19:58] VITALS: RESP 18
[2023-11-16] MEDS: SIMVASTATIN 20 MG TAB PO SCH (20:40)
[2023-11-16] MEDS: TAMSULOSIN HCL 0.4 MG CAP PO SCH (20:40)
[2023-11-16] MEDS: POLYETHYLENE (MIRALAX) 17 GM PACK PO SCH (20:41)
[2023-11-16 21:02] LABS: BUN Creatinine Ratio 20.9 (10-20); Calcium 8.6 mg/dl (8.6-10.3); Creatinine Clr Calc Pharmacy 63.9 ml/min; Est GFR (African American) 92.3 ml/min; Est GFR (Non-African American) 79.6 ml/min; Potassium 3.7 mmol/L (3.5-5.1)
--- NOTE | 2023-11-16 21:24 | Hospitalist Progress Note ---
Date of Service November 16, 2023 Assessment & Plan (1) Hyponatremia: Plan: 83 yo M with recent admission for weakness back again for near-syncopal episode. Syncope- likely due to hyponatremia. - Patient had been admitted form 11/04/23 to 11/05/23 for weakness/dizziness --> cause was though to be due to hyponatremia vs. orthostatic hypotension. He was apparently drinking 6-8 16.9 ounce water bottles day plus additional beverages like coffee, juice etc. He was advised to reduce it -- however he says today that he was admitted here in the past for dehydration and that is why he thought he needed to be drinking so much. He is now very confused how volume intake. - He saw his outpatient PCP in the interim, at which time his metoprolol dose was reudced and his losartan dose was increased to 50mg daily. He was advised to limit water intake at this visit as well. The rationale for the lower metoprolol dose was his concurrent aortic stenosis and his losartan was increased to make up the difference in anti-hypertensive coverage. - On this admission his Na was 125. He is not on a thiazide. Serum osmolality 78. Hypotonic hyponatremia. - Urine osmolality 306, urine Na > 40. 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 TSH was normal. AM cortisol normal. He has COPD -- but this is not a typical pulmonary cause. 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 - he was placed on 1500 mL fluid restriction - he was given hypertonic saline 50 mL 3% x 1 on admission. Continue NSS at 80mls/hr. - NaCl tabs ordered bid -- today his sodium increased to 130 -- trend BMP daily. - Patient will need to have further restriction and fluid intake at home, and that should be very specifically state him a much fluid he should drink including water, juices and coffee - Patient has dry mouth associated with mouth breathing secondary to nasal congestion - Suggested that he gets a nasal irrigation system to clear his nose, so he does not mouth breathe, so dizzy and dry mouth, so he does not want to keep drinking lots of liquids. Hypertension/CAD/mild aortic stenosis/venous insufficiency close veins bilaterally- Continue aspirin, metoprolol succinate and losartan Would avoid naproxen, as this is likely contributing to his intermittent lower extremity edema BPH with LUTS- Continue tamsulosin (2) Excessive fluid intake: (3) Syncope: (4) Varicose veins of both legs with edema: (5) Pulmonary hypertension: (6) Cardiomyopathy: (7) Aortic stenosis, mild: (8) COPD (chronic obstructive pulmonary disease): (9) Prostate cancer: (10) Spinal stenosis, lumbar region with neurogenic claudication: (11) Chronic constipation: (12) CAD (coronary artery disease): (13) Hypertension: (14) Hyperlipidemia: (15) GERD (gastroesophageal reflux disease): Admission and Anticipated Discharge Date Admission Date: November 15, 2023 Subjective Patient is very talkative at bedside -- he is feeling better -- he claims he never actually passed out, just felt dizzy. Review of Systems Review of Systems: All systems reviewed & are unremarkable except as noted in HPI & below Physical Exam Constitutional: WD/WN, vitals as above Eyes: PERRL, conjunctivae normal, anicteric sclerae ENMT: external ear and nose normal, oropharynx normal Neck: trachea midline, no thyromegaly Respiratory: normal respiratory effort, lungs clear to auscultation Cardiovascular: RRR, no murmur, no edema Skin: no rashes, warm and dry Results & Data Results & Data Vital Signs (Past 12 Hours) Vital Signs Temp Pulse Pulse Pulse Resp BP Pulse Ox 11/16/23 19:57 36.5 C 70 18 132/62 97 11/16/23 15:48 37 C 63 20 160/66 H 95 11/16/23 13:37 59 L 11/16/23 11:42 37.4 C 71 16 138/64 100 O2 Del Method 11/16/23 19:57 Room Air 11/16/23 15:48 Room Air 11/16/23 13:37 11/16/23 11:42 Room Air PG Care Time/CCT Total # of Minutes Spent Total Time Spent with Patient: Total time spent is greater than 50% in coordination of care (as documented) at patient's floor/unit and/or counseling patient: Coding [place] [address] SUB INP/OBS CARE 2/35MIN Patient Type Established Diagnoses Hyponatremia E87.1 Excessive fluid intake R63.8 Syncope R55 Syncope type: unspecified Varicose veins of both legs with edema I83.893 Pulmonary hypertension I27.20 Ischemic cardiomyopathy I25.5 Cardiomyopathy type: ischemic Aortic stenosis, mild I35.0 COPD (chronic obstructive pulmonary disease) J44.9 Prostate cancer C61 Spinal stenosis, lumbar region with neurogenic claudication M48.062 Chronic constipation K59.09 Coronary artery disease involving [place] coronary artery of [place] heart without angina pectoris I25.10 Coronary Disease-Associated Artery/Lesion type: [place] artery [place] vs. transplanted heart: [place] heart Associated angina: without angina Primary hypertension I10 Hypertension type: primary hypertension Hyperlipidemia, unspecified hyperlipidemia type E78.5 Hyperlipidemia type: unspecified GERD (gastroesophageal reflux disease) K21.9 (3) Syncope Syncope type: unspecified Qualified Code(s): R55 - Syncope and collapse (6) Cardiomyopathy Cardiomyopathy type: ischemic Qualified Code(s): I25.5 - Ischemic cardiomyopathy (12) CAD (coronary artery disease) Coronary Disease-Associated Artery/Lesion type: [place] artery [place] vs. transplanted heart: [place] heart Associated angina: without angina Qualified Code(s): I25.10 - Atherosclerotic heart disease of [place] coronary artery without angina pectoris (13) Hypertension Hypertension type: primary hypertension Qualified Code(s): I10 - Essential (primary) hypertension (14) Hyperlipidemia Hyperlipidemia type: unspecified Qualified Code(s): E78.5 - Hyperlipidemia, unspecified
[2023-11-16] MEDS: SODIUM CHLORIDE 0.9% 1,000 ML IV SCH (23:07)
[2023-11-17 06:18] LABS: Basophils # (auto) 0.02 K/uL (0.00-0.20); Basophils % (auto) 0.6 %; Eosinophils # (auto) 0.03 K/uL (0.00-0.50); Eosinophils % (auto) 0.9 %; Hematocrit (blood only) 29.8 % (42.0-52.0); Hemoglobin 9.4 g/dl (14.0-18.0); Immature Granulocytes # (auto) 0.01 K/uL (0.01-0.20); Immature Granulocytes % (auto) 0.3 %; Lymphocytes % (auto) 14.5 %; Mean Corpuscular Hemoglobin 23.9 pg (25.0-34.0); Mean Corpuscular Hgb Conc 31.5 g/dL (32.0-36.0); Mean Corpuscular Volume 75.8 fL (80.0-100.0); Mean Platelet Volume 9.6 fL (9.4-12.4); Monocytes # (auto) 0.42 K/uL (0.11-0.59); Monocytes % (auto) 12.2 %; Neutrophils # (auto) 2.47 K/uL (1.40-6.50); Neutrophils % (auto) 71.5 %; Platelet Count 139 K/uL (130-400); RDW Standard Deviation 48.4 fL (36.4-46.3); Red Blood Count 3.93 M/uL (4.70-6.10); White Blood Count 3.45 K/ul (4.8-10.8)
[2023-11-17 06:37] LABS: BUN Creatinine Ratio 19.7 (10-20); Calcium 8.6 mg/dl (8.6-10.3); Creatinine Clr Calc Pharmacy 72.4 ml/min; Est GFR (African American) 97.1 ml/min; Est GFR (Non-African American) 83.8 ml/min; Magnesium 1.6 mg/dl (1.7-2.4); Potassium 3.7 mmol/L (3.5-5.1)
[2023-11-17] MEDS: MULTIVITAMIN TAB PO SCH (08:41)
--- NOTE | 2023-11-17 09:14 | Nephrology Consultation ---
Date of Consultation November 17, 2023 Assessment & Plan (1) Hyponatremia: Hyperosmolar hyponatremia. Patient is clinically euvolemic. Prior evaluation revealed normal TSH and cortisol. Patient does have emphysema and pulmonary nodules. He has undergone evaluation by pulmonology in the past. Nodules are felt to be benign. CXR this admission is negative for lung mass. Patient reports last colonoscopy was at 79 years of age and negative for malignancy. He has a history of prostate cancer which has been managed with hormonal and radiation therapy. By history and physical exam there does not appear to be an overt malignancy driving his hyponatremia. 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 Agree with 1500 cc/day free water fluid restriction. Continue NaCl 1 g twice daily. Start furosemide 20 mg p.o. daily to promote free water excretion. Monitor daily BMP, urine osmolality. If discharge is anticipated recommend continuing current medical regimen of fluid restriction, salt tablet and loop diuretic. Patient may follow-up with PCP within 1-2-weeks. History of Present Illness Reason for Consultation: Hyponatremia Attending Physician: Charlie East History of Present Illness Mr. Fowler is an 83-year-old white male who is seen at the request of the [facility] hospitalist service for evaluation of hyponatremia. Information for the HPI is obtained from direct patient interview and review of the EMR. HPI is summarized as follows: Mr. Fowler has preserved kidney function. He has not required nephrology evaluation in the past. His medical history is significant for emphysema, pulmonary nodules, spinal stenosis, ASCVD, PVD, hyperlipidemia, GERD and osteoarthritis. He reports a history of prostate cancer managed with hormonal and radiation therapy in the past. Mr. Fowler has a history of chronic hyponatremia with serum sodium 089303 dating back to 04/23. He was last hospitalized 11/04/2023 - 11/06/2023 due to weakness and near syncope. Hospital evaluation revealed serum sodium 128, urine osmolality 306. Upon questioning it was noted that the patient was drinking up to 4 L of free water per day. He was advised to reduce his water intake to 1500 cc/day. He was on an SSRI, but was not taking a thiazide diuretic. Mr. Fowler reports that he was only able to reduce his free water intake to 2 L/day. He was readmitted to [facility] 11/15/2023 for evaluation of recurrent weakness and confusion. At the time of admission serum sodium was again 128 mmol/L w/ Uosm 306. He received 50 cc 3% NaCl and was started on NaCl 1 g po BID. serum sodium has improved to 130 mmol/L. Prior evaluation revealed normal TSH and a.m. cortisol. Allergies Allergy/AdvReac Type Severity Reaction Status Date / Time ibuprofen Allergy Intermediate Rash Verified 11/15/23 22:23 Penicillins Allergy Intermediate Rash Verified 11/15/23 22:23 ranitidine Allergy Intermediate Rash Verified 11/15/23 22:23 (stomach) meloxicam Allergy Unknown Unknown Verified 11/15/23 22:23 ramipril Allergy Unknown Unknown Verified 11/15/23 22:23 oxycodone AdvReac Severe Hallucinati Verified 11/15/23 22:23 ons propoxyphene AdvReac Severe Hallucinati Verified 11/15/23 22:23 ons pravastatin AdvReac Intermediate Joint pain Verified 11/15/23 22:23 doxycycline AdvReac Unknown Per Verified 11/15/23 22:23 records (pt denies) Home Medications Medication Instructions Recorded Confirmed Type calcium carbonate 600 mg-vitamin 1 tab PO BID 02/16/18 11/15/23 History D3 20 mcg (800 unit) chewable tablet (Caltrate 600 plus D) cholecalciferol (vitamin D3) 125 5,000 units PO QAM 02/16/18 11/15/23 History mcg (5,000 unit) tablet polyethylene glycol 3350 17 17 g PO HS 02/16/18 11/15/23 History gram/dose oral powder (Miralax) vit A 5,000 unit-C 120 mg-E 60 1 tab PO QAM 02/16/18 11/15/23 History unit-B [id number] tablet ER (Lipotriad (with lutein)) multivitamin 1 tab PO Q OTHER DAY 12/29/18 11/15/23 History simvastatin 20 mg tablet (Zocor) 20 mg PO QPM #90 tabs 02/17/23 11/15/23 Rx loratadine 10 mg tablet (Claritin) 10 mg PO DAILY #30 tabs 05/20/23 11/15/23 Rx naproxen 500 mg tablet 500 mg PO BID #180 tabs 09/24/23 11/15/23 Rx tamsulosin 0.4 mg capsule 0.4 mg PO HS 11/04/23 11/15/23 History tramadol 50 mg tablet 50 mg PO HS PRN pain 11/04/23 11/15/23 History ascorbate calcium (vitamin C) 500 500 mg PO DAILY 11/07/23 11/15/23 History mg tablet aspirin 81 mg tablet,delayed 81 mg PO DAILY 11/07/23 11/15/23 History release (Adult Low Dose Aspirin) fish oil 1,000 mg PO DAILY 11/07/23 11/15/23 History guaifenesin 600 mg tablet, 600 mg PO DAILY 11/07/23 11/15/23 History extended release 12 hr (Mucinex) sertraline 50 mg tablet 50 mg PO DAILY #30 tabs 11/10/23 11/15/23 Rx losartan 25 mg tablet 50 mg (2 x 25 mg) PO DAILY #60 tabs 11/13/23 11/15/23 Rx metoprolol succinate 25 mg 12.5 mg (1/2 x 25 mg) PO DAILY #45 11/13/23 11/15/23 Rx tablet,extended release 24 hr tabs pantoprazole 40 mg tablet,delayed 40 mg PO BID 11/13/23 11/15/23 History release sodium chloride 1,000 mg soluble 1,000 mg PO BID #60 tabs 11/17/23 Rx tablet Patient History Medical History Personal history of malignant melanoma of skin Sacroiliitis Surgical History Status post 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 Walden 09/27/2020 H/O right inguinal hernia repair Laparoscopic Right Inguinal Hernia Repair with mesh, Open Umbilical Hernia Repair(Right) Dr. Walden 09/27/2020 History of prostate biopsy History of melanoma excision History of tooth extraction all teeth removed S/P bronchoscopy Navigational bronchoscopy (2015) History of colonoscopy History of total knee arthroplasty R/L H/O cervical spine surgery ACDF C4-5 (no ROM limitations per PAT RN interview) History of tonsillectomy and adenoidectomy Family History Father Coronary heart disease Heart disease Myocardial infarction Mother Stroke Family/Other Diabetes A-fib Lung cancer Hypertension Other No family history of adverse response to anesthesia No family history of bleeding disorder Denies family history of Ovarian cancer Prostate cancer Breast cancer Colorectal cancer Social History Smoking Status: Former smoker Tobacco Type: Cigarettes Age Started Using Tobacco: 15; Age Quit Using Tobacco: 49; Second Hand Exposure: No; Do You Dip or Chew Tobacco: No; Hx Alcohol Use: No Hx Substance Use: No Preferred Language: Marshallese Communication Ability: Effective Visual Impairment: No Limitations Hearing Ability: Normal Analytic Manager Required: No Beliefs That Will Affect Care: None marital status: Current Living Situation: Alone current occupational status: retired Feels Safe at Home: Yes Childhood Exposure to Second-Hand Smoke: Yes Diet: regular Diet Comment: regular caffeine: No during the past year weight has: remained stable Dental Care, Regularly: No Physical Activity Frequency: Daily Seatbelt Use: always Sunscreen Use: No Assistive Devices: Glasses Review of Systems Constitutional: no fever Eyes: no problem reported Ear, Nose, Mouth, Throat: no problem reported Respiratory: no cough and no dyspnea Cardiovascular: no chest pain Gastrointestinal: no abdominal pain, no nausea, no vomiting and no diarrhea/loose stools Genitourinary: no dysuria or no hematuria Integumentary: no rash Physical Exam Constitutional: not in distress Eyes: PERRL, conjunctivae normal, anicteric sclerae ENMT: external ear and nose normal, oropharynx normal Neck: trachea midline, no thyromegaly Respiratory: normal respiratory effort, lungs clear to auscultation Cardiovascular: RRR, no murmur, no edema Gastrointestinal (Abdomen): normal bowel sounds, soft, nontender, no hepatosplenomegaly Skin: no rashes, warm and dry Neurologic: Speech / Cognition: normal speech and normal cognition Results & Data Vital Signs (Past 12 Hours) Vital Signs Temp Pulse Pulse Resp BP Pulse Ox O2 Del Method 11/17/23 08:04 37 C 67 18 162/69 H 96 Room Air 11/17/23 03:34 36.4 C L 59 L 18 149/70 H 98 Room Air 11/16/23 23:48 36.6 C 60 18 153/68 H 97 Room Air 11/16/23 22:12 56 L Laboratory Results Laboratory Results WBC 3.45 K/ul (4.8-10.8) L 11/17/23 05:37 RBC 3.93 M/uL (4.70-6.10) L 11/17/23 05:37 Hgb 9.4 g/dl (14.0-18.0) L 11/17/23 05:37 Hct 29.8 % (42.0-52.0) L 11/17/23 05:37 MCV 75.8 fL (80.0-100.0) L 11/17/23 05:37 MCH 23.9 pg (25.0-34.0) L 11/17/23 05:37 MCHC 31.5 g/dL (32.0-36.0) L 11/17/23 05:37 RDW Std Deviation 48.4 fL (36.4-46.3) H 11/17/23 05:37 RDW Coeff of Brian 18.0 % (11.5-14.5) H 11/17/23 05:37 Plt Count 139 K/uL (130-400) 11/17/23 05:37 MPV 9.6 fL (9.4-12.4) 11/17/23 05:37 Immature Gran % (Auto) 0.3 % 11/17/23 05:37 Neut % (Auto) 71.5 % 11/17/23 05:37 Lymph % (Auto) 14.5 % 11/17/23 05:37 Alfalfa % (Auto) 12.2 % 11/17/23 05:37 Eos % (Auto) 0.9 % 11/17/23 05:37 Baso % (Auto) 0.6 % 11/17/23 05:37 Neut # (Auto) 2.47 K/uL (1.40-6.50) 11/17/23 05:37 Lymph # (Auto) 0.50 K/uL (1.20-3.40) L 11/17/23 05:37 [place]falfa # (Auto) 0.42 K/uL (0.11-0.59) 11/17/23 05:37 Eos # (Auto) 0.03 K/uL (0.00-0.50) 11/17/23 05:37 Baso # (Auto) 0.02 K/uL (0.00-0.20) 11/17/23 05:37 Immature Gran # (Auto) 0.01 K/uL (0.01-0.20) 11/17/23 05:37 Sodium 131 mmol/L (136-145) L 11/17/23 05:37 Potassium 3.7 mmol/L (3.5-5.1) 11/17/23 05:37 Chloride 98 mmol/L (98-107) 11/17/23 05:37 Carbon Dioxide 28 mmol/L (21-32) 11/17/23 05:37 Anion Gap 5 (3-11) 11/17/23 05:37 BUN 15 mg/dl (6-23) 11/17/23 05:37 Creatinine 0.76 mg/dl (0.6-1.4) 11/17/23 05:37 Est Cr Clr Drug Dosing 72.4 ml/min 11/17/23 05:37 Est GFR ( Amer) 97.1 ml/min 11/17/23 05:37 Est GFR (Non-Af Amer) 83.8 ml/min 11/17/23 05:37 BUN/Creatinine Ratio 19.7 (10-20) 11/17/23 05:37 Glucose 84 mg/dl (70-99(Fasting)) 11/17/23 05:37 Calcium 8.6 mg/dl (8.6-10.3) 11/17/23 05:37 Magnesium 1.6 mg/dl (1.7-2.4) L 11/17/23 05:37 Total Bilirubin 0.5 mg/dl (0.2-1.0) 11/16/23 06:01 AST 15 U/L (13-39) 11/16/23 06:01 ALT 9 U/L (7-52) 11/16/23 06:01 Alkaline Phosphatase 38 U/L (34-104) 11/16/23 06:01 Troponin I High Sens 8.4 pg/ml (0-20) 11/15/23 20:30 Total Protein 5.5 gm/dl (6.0-8.3) L 11/16/23 06:01 Albumin 3.9 gm/dl (3.4-5.0) 11/16/23 06:01 Globulin 1.6 gm/dl (2.5-4.0) L 11/16/23 06:01 Albumin/Globulin Ratio 2.4 (0.9-2) H 11/16/23 06:01 TSH 3.466 uIu/ml (0.300-4.500) 11/15/23 20:30 Cortisol AM Sample 12.22 mcg/dl (6.2-22.6) 11/16/23 06:01 Urine Color Yellow 11/15/23 20:45 Urine Appearance Cloudy (Clear) A 11/15/23 20:45 Urine pH 8.5 (4.5-7.5) H 11/15/23 20:45 Ur Specific [place] 1.016 (1.000-1.030) 11/15/23 20:45 Urine Protein Negative (Negative) 11/15/23 20:45 Urine Glucose (UA) Negative (Negative) 11/15/23 20:45 Urine Ketones Negative (Negative) 11/15/23 20:45 Urine Blood Negative (Negative) 11/15/23 20:45 Urine Nitrite Negative (Negative) 11/15/23 20:45 Urine Bilirubin Negative (Negative) 11/15/23 20:45 Urine Urobilinogen Negative (Negative) 11/15/23 20:45 Ur Leukocyte Esterase 1+ (Negative) H 11/15/23 20:45 Urine WBC (Auto) 6-10 /hpf (0-5) H 11/15/23 20:45 Urine RBC (Auto) 0-2 /hpf (0-2) 11/15/23 20:45 U Hyaline Cast (Auto) 3-5 /lpf (0-2) H 11/15/23 20:45 U Epithel Cells (Auto) 0-2 /hpf (0-2) 11/15/23 20:45 Urine Bacteria (Auto) None Seen (None Seen) 11/15/23 20:45 Ur Random Creatinine 75.3 mg/dl 11/16/23 23:10 Impressions Chest X-Ray 11/15/23 20:42 XR chest 1V portable CLINICAL HISTORY: weakness TECHNIQUE: Single frontal radiograph of the chest was obtained. Comparison: Comparison is made to chest radiograph 11/04/2023 FINDINGS: No lines and tubes are seen. The cardiomediastinal silhouette is normal. Lungs are underinflated but clear apart from bibasilar atelectasis. No evidence of pleural effusion or pneumothorax. IMPRESSION: Bibasilar atelectasis. No acute abnormalities. ACT 112: Negative or not required by law. Electronically signed by: Sigifredo Diego M.D. 11/16/2023 8:40 AM PG Care Time/CCT Total # of Minutes Spent Total Time Spent with Patient: Total time spent is greater than 50% in coordination of care (as documented) at patient's floor/unit and/or counseling patient: Coding Level of Care Code 34724 IN/OBS CONSULT LVL 5,80M Diagnoses Hyponatremia E87.1
[2023-11-17 11:50] VITALS: O2SAT 97
[2023-11-17 15:37] VITALS: TEMP 99
[2023-11-17] MEDS ORDERED: FUROSEMIDE 20 MG TAB PO SCH (16:30)
[2023-11-17 16:53] VITALS: BP 141/64; PULSE 71
--- NOTE | 2023-11-18 05:48 | Electrocardiogram Report ---
Test Reason : Blood Pressure : */* mmHG Vent. Rate : 54 BPM Atrial Rate : 54 BPM P-R Int : 212 ms QRS Dur : 170 ms QT Int : 418 ms P-R-T Axes : 26 -69 -17 degrees QTcB Int : 396 ms Sinus bradycardia with 1st degree A-V block with Premature atrial complexes Right bundle branch block Left anterior fascicular block Bifascicular block Septal infarct (cited on or before 04-Aug-2022) T wave abnormality, consider lateral ischemia Abnormal ECG When compared with ECG of 04-Nov-2023 13:18, No significant change Confirmed by Wolf Abdullahi ([id number]) on 11/18/2023 5:47:51 AM Referred By: REFERRED SELF Confirmed By: Wolf Abdullahi
[2023-11-19 11:27] LABS: Urea Nitrogen, Random Urine 523 mg/dL
--- NOTE | 2023-11-20 23:24 | Discharge Summary ---
Discharge Summary Date of Service November 17, 2023 Principal Dx & Hospital Course #1 = Principal Diagnosis (1) Hyponatremia: (2) Excessive fluid intake: (3) Syncope: (4) Varicose veins of both legs with edema: (5) Pulmonary hypertension: (6) Cardiomyopathy: (7) Aortic stenosis, mild: (8) COPD (chronic obstructive pulmonary disease): (9) Prostate cancer: (10) Spinal stenosis, lumbar region with neurogenic claudication: (11) Chronic constipation: (12) CAD (coronary artery disease): (13) Hypertension: (14) Hyperlipidemia: (15) GERD (gastroesophageal reflux disease): Plan Syncope- Likely secondary to hyponatremia Patient had recently been admitted to [facility] from 11/03-11/05/2023, at that time sodium was 128, and increased to 132 at time of discharge. Serum osmolality headed to 78 and urine osmolality 306 Patient had been advised to decrease his fluid intake Discussion with patient and son in the ED, reveals that the patient would drink 16.9 ounce bottles of water, 6-8 daily. Since that discharge, patient has decreased the number of 16.9 ounce bottles to 3-4 daily, and in addition, he drinks at least 1 of these bottles mixed with juice daily Patient also drinks coffee on a daily basis as well Patient is still drinking excessive amounts of fluids, which are leading to hyponatremia. Patient will be placed on 1500 mL fluid restriction Will give hypertonic saline 50 mL 3% x 1 now, Give sodium chloride 1 g p.o. now, and placed on twice daily Repeat laboratories in the a.m. Patient will need to have further restriction and fluid intake at home, and that should be very specifically state him a much fluid he should drink including water, juices and coffee Patient has dry mouth associated with mouth breathing secondary to nasal congestion Suggested that he gets a nasal irrigation system to clear his nose, so he does not mouth breathe, so dizzy and dry mouth, so he does not want to keep drinking lots of liquids. Hypertension/CAD/mild aortic stenosis/venous insufficiency close veins bilateral ly- Continue aspirin, metoprolol succinate and losartan Would avoid naproxen, as this is likely contributing to his intermittent lower extremity edema continue lasix and salt tablets at discharge. BPH with LUTS- Continue tamsulosin Admission HPI Per Admitting Provider The patient is an 83-year-old male with past medical history including hypertension hyponatremia, varicose veins bilateral extremities, B12 deficiency, pulm hypertension, cardiomyopathy, mild aortic stenosis, CAD, right bundle branch block, COPD, generation, anxiety, lumbar facet joint syndrome, lumbar spinal stenosis with neurogenic claudication, GERD hyperlipidemia and osteoarthritis. The patient is most recent admitted admitted from 11/03-11/06/2023 due to generalized weakness, sodium 128 that improved 132 but, discharge, a serum osmolality of 270 with urine osmolality of 306. The patient was found to have a sodium of 125 in the ED this evening, and was referred for evaluation for admission Discharge Exam Constitutional: WD/WN, vitals as above Eyes: PERRL, conjunctivae normal, anicteric sclerae ENMT: external ear and nose normal, oropharynx normal Neck: trachea midline, no thyromegaly Respiratory: normal respiratory effort, lungs clear to auscultation Cardiovascular: RRR, no murmur, no edema Skin: no rashes, warm and dry Discharge Plan Discharge Items Patient Disposition: Home - Self-Care Reason For Visit: HYPONATREMIA, SYNCOPE Discharge Diagnosis: hyponatremia Condition on Discharge: Fair Activity: Resume your previous activity Non-emergency contact: Primary Care Provider Call non-emergency contact if: you have any medication questions Follow-up/Referrals: Carisa Marr DO [Primary Care Provider] - 11/27/23 9:20 am Diet: Regular Fluids: 1500ml (6 cups) Ambulatory Orders: Basic Metabolic Panel (Routine) Timeframe: 1 Week Location: Determined by Patient Ordered By: Charlie Jo Attending Provider Instructions: Recommend followup with PCP in 1-2 weeks. Please limit fluid intake. Recommend you recheck your sodium in 1 week. Pending Studies at Discharge: No Stand-Alone Forms: My [employer], Smoking Cessation Medications and DC Order Prescriptions: Continued calcium carbonate-vitamin D3 [Caltrate 600 plus D] 600 mg (1,500 mg)-800 unit tablet,chewable 1 tab PO BID cholecalciferol (vitamin D3) 5,000 unit tablet 5,000 units PO QAM vits A-C-E-B [id number]-hcp-[id number] [Lipotriad (with lutein)] 5,000 unit- 120 mg-60 unit tablet extended release 1 tab PO QAM polyethylene glycol 3350 [Miralax] 17 gram/dose powder 17 g PO HS multivitamin tablet 1 tab PO Q OTHER DAY Patient Comments: takes in the am simvastatin [Zocor] 20 mg tablet 20 mg PO QPM Qty: 90 3RF sertraline 50 mg tablet 50 mg PO DAILY Qty: 30 2RF loratadine [Claritin] 10 mg tablet 10 mg PO DAILY Qty: 30 5RF losartan 25 mg tablet 50 mg PO DAILY Qty: 60 2RF metoprolol succinate 25 mg tablet extended release 24 hr 12.5 mg PO DAILY Qty: 45 2RF pantoprazole 40 mg tablet,delayed release (DR/EC) 40 mg PO BID aspirin [Adult Low Dose Aspirin] 81 mg tablet,delayed release (DR/EC) 81 mg PO DAILY ascorbate calcium (vitamin C) 500 mg tablet 500 mg PO DAILY fish oil 1,000 mg PO DAILY guaifenesin [Mucinex] 600 mg tablet extended release 12hr 600 mg PO DAILY tamsulosin 0.4 mg capsule 0.4 mg PO HS tramadol 50 mg tablet 50 mg PO HS PRN (Reason: pain) Discontinued naproxen 500 mg tablet 500 mg PO BID Qty: 180 0RF No Action furosemide 20 mg tablet 20 mg PO DAILY Qty: 30 0RF sodium chloride 1,000 mg tablet,soluble 1,000 mg PO BID Qty: 60 2RF Discharge Orders: Discharge Order (Routine); Ordered 11/17/23 Ordered By: Charlie East Admission Data Admit Date/Time: 11/15/23 23:20 Attending Provider: Charlie East Admit Provider: Keith Mosquera Primary Care Provider: Carisa Marr Other Providers: Keith Mosquera; Haseeb Friedman; Arvind Maravilla Kevin C.; Emelyn Emerson Other Interventions: Discharge Summary Assessment (RN) Last Done: 11/17/23 16:53 Hospital Stay Data Consultations 11/15/23 22:23 ED Decision to Admit Stat 11/17/23 08:50 Consult Nephrology Routine Pending Results Patient Have Any Pending Studies at Discharge: No Discharge Instructions Given to Patient (Per Discharging Provider) Recommend followup with PCP in 1-2 weeks. Please limit fluid intake. Recommend you recheck your sodium in 1 week. Total Time Total Time Spent Total Time Spent (In Minutes): 34 Coding Level of Care Code 19390 INP/OBS DISCH >30 MIN Diagnoses Hyponatremia E87.1 Excessive fluid intake R63.8 Syncope R55 Syncope type: unspecified Varicose veins of both legs with edema I83.893 Pulmonary hypertension I27.20 Ischemic cardiomyopathy I25.5 Cardiomyopathy type: ischemic Aortic stenosis, mild I35.0 COPD (chronic obstructive pulmonary disease) J44.9 Prostate cancer C61 Spinal stenosis, lumbar region with neurogenic claudication M48.062 Chronic constipation K59.09 Coronary artery disease involving [place] coronary artery of [place] heart without angina pectoris I25.10 Coronary Disease-Associated Artery/Lesion type: [place] artery [place] vs. transplanted heart: [place] heart Associated angina: without angina Primary hypertension I10 Hypertension type: primary hypertension Hyperlipidemia, unspecified hyperlipidemia type E78.5 Hyperlipidemia type: unspecified GERD (gastroesophageal reflux disease) K21.9
== END 2023-11-17 17:41 | disposition home or self-care (01) | DRG 641 ==
LOC: ED 20:17 → 2N 23:20 → SUATTDRO 23:20 → 2N 11-16 00:52

== ENCOUNTER 2024-05-05 07:07 | Inpatient (IN) ==
--- NOTE | 2024-05-05 07:12 | Emergency Department Note ---
Impression & Plan Vertigo, Elevated troponin, Nausea & vomiting, Hypoxia ED Provider Note NAME: DREA MCDANIEL AGE: 83 SEX: M : 1940 ARRIVES VIA: Ambulance INFORMANT: Patient ED PROVIDER(S): Shahzad Winston MD CHIEF COMPLAINT: Dizziness, nausea, vomiting. PLAN: Disposition: Admit MEDICAL DECISION MAKING: The patient is a pleasant 83-year-old gentleman with a past medical history of CAD, COPD, hypertension, hyperlipidemia, GERD, aortic stenosis, CHF who presents to the emergency department via EMS for evaluation of acute onset room spinning with nausea and vomiting that began early this morning around 5:30 AM. Patient reports he was sleeping his recliner and turned his head approximately 9 degrees to the left to look at the clock which began to "spin around the room" and he had immediate nausea and vomiting. Per patient's son who arrived at the bedside, the patient's blood pressure was elevated on EMS assessment. Patient was in his normal state of health yesterday and denies any recent illness including denies cough, congestion, fevers, diarrhea. Patient reported abdominal pain when he was vomiting but this has resolved. He reports his room spinning and nausea is also resolved. He denies any associated chest pain or shortness of breath with episode. Patient is afebrile with O2 saturation noted to decline to 80% on room air and so placed on 4 L nasal cannula with improvement to the mid 90s. Vital signs otherwise stable. Patient appears clinically dry. He has no focal neurologic deficits. EOMI. No nystamgus. PEARRL.intact finger-nose. EKG with right bundle branch block and left anterior fascicular block without overt acute ischemia and is similar to prior. CXR with stable bibasilar opacities which may reflect infiltrate. WBC 4.3 similar to prior. H/H similar to prior. Platelets 118K, slightly decreased but approximate 2 prior. Chemistry without metabolic acidosis. BUNs/creatinine 28 consistent with patient's clinically dry appearance. LFTs are unremarkable. Initial high-sensitivity troponin 41.4, nonspecific. Lipase within normal limits. Respiratory BioFire was negative. CT of the head and CT of the head and neck negative for acute ICH or ischemia. Progression of small areas of nonspecific hypodensities in the left periventricular white matter are described. There is no acute large vessel occlusion. Carotid artery disease as described. CT of the abdomen pelvis demonstrates spiculated left lower lobe nodule and spiculated right middle lobe opacity that is unchanged and patient is following with pulmonology for these. Patient was treated with IV fluid hydration as well as famotidine. Patient continued to feel improved. The patient and son at the bedside agree with plan for admission for further management. Case was d/w GUERLINE Crenshaw hospitalist who will evaluate the patient for admission. Repeat HS troponin 545. Admitting team aware. Further management per admitting team. Triage Nursing notes reviewed and agree them. Prior/external medical records reviewed Vital Signs: reviewed Differential diagnosis: Benign positional vertigo, dehydration, hypovolemia, anemia, tumor, infection, hypoglycemia, electrolyte abnormalities, cardiac sources, intracerebral event, toxicologic, neurologic, as well as other pathologies. ER treatment provided: See below. Diagnostics interpreted by me: ECG: Normal sinus rhythm with sinus arrhythmia, 75 bpm, no ectopy, right bundle branch block, left anterior fascicular block, no overt ST elevation or depression, QTc 495, QRS 168., Similar to prior. Cardiac Monitoring: An order for continuous cardiac monitoring was placed and demonstrated NSR 75 bpm, no ectopy. Laboratory studies: See below Imaging studies: See below Consultation(s): Case was d/[place] [facility] [place] who will evaluate the patient for admission. HPI: The patient is a pleasant 83-year-old gentleman with a past medical history of CAD, COPD, hypertension, hyperlipidemia, GERD, aortic stenosis, CHF who presents to the emergency department via EMS for evaluation of acute onset room spinning with nausea and vomiting that began early this morning around 5:30 AM. Patient reports he was sleeping his recliner and turned his head approximately 9 degrees to the left to look at the clock which began to "spin around the room" and he had immediate nausea and vomiting. Per patient's son who arrived at the bedside, the patient's blood pressure was elevated on EMS assessment. Patient was in his normal state of health yesterday and denies any recent illness including denies cough, congestion, fevers, diarrhea. Patient reported abdominal pain when he was vomiting but this has resolved. He reports his room spinning and nausea is also resolved. He denies any associated chest pain or shortness of breath with episode. ROS: See above HPI for pertinent positives & negatives. A total of 10 systems reviewed and were otherwise negative. VITALS:See Below PHYSICAL EXAMINATION: GENERAL: Awake, alert, fatigued-appearing, in no distress HENT: Normocephalic, atraumatic. Oropharynx with dry mucous membranes and otherwise unremarkable. EYES: Normal conjunctiva. Sclera non-icteric. EOMI. No nystamgus. PEARRL. NECK: Supple. No nuchal rigidity. FROM. No JVD. RESPIRATORY: Clear to auscultation. CARDIAC: Regular rate, normal rhythm. Extremities warm and well perfused. Pulses equal. ABDOMEN: Soft, non-distended. No tenderness to palpation. No rebound or guarding. No masses. MUSCULOSKELETAL: Chest examination reveals no tenderness. The back is symmetrical on inspection without obvious abnormality. There is no CVA tenderness to palpation. No joint edema. LOWER EXTREMITIES: Calves are equal size bilaterally and non-tender. No edema. No discoloration. NEURO: CN II-XII grossly intact. 5/5 strength and SILT x 4 extremities. Cerebellar function intact including [id number], alternating palms. SKIN: No rash or jaundice noted. Shahzad Winston MD Past Med/Surg History Problem List (Updated 05/06/24 @ 10:52 by Shahzad Winston MD) Hypoxia (Acute) Nausea & vomiting (Acute) Thrombocytopenia Elevated troponin (Acute) Vertigo (Acute) Anxiety and depression Anemia (Acute) Leukopenia (Acute) Varicose veins of both legs with edema Sialorrhea Pulmonary hypertension Cardiomyopathy Aortic stenosis, mild Hypertrophy of both inferior nasal turbinates Chronic rhinitis Lumbar back pain Thoracic back pain Coronary artery calcification RBBB Prostate cancer Superficial spreading malignant melanoma of skin Chronic venous insufficiency 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, along with aortic atherosclerosis > under surveillance Macular degeneration Left eye Male erectile disorder of organic origin Osteopenia Pulmonary emphysema Pulmonary nodules "Benign" navigational bronchoscopy/biopsy (2016) Tubular adenoma of colon Vitamin D deficiency Prediabetes Anxiety Spinal stenosis, lumbar region with neurogenic claudication (Chronic) CAD (coronary artery disease) Aortic atherosclerosis Umbilical hernia COPD (chronic obstructive pulmonary disease) pt denies Hypertension Hyperlipidemia GERD (gastroesophageal reflux disease) Osteoarthritis Medical History Bifascicular block 11/2023 Syncope Hypotension History of COVID-20 June 2023: flu symptoms. resolved. Pulmonary nodules "Benign" navigational bronchoscopy/biopsy (2015) Pulmonary hypertension Spinal stenosis History of prostate cancer (2011) no surgical intervention, treated hormone therapy. [place] [facility] GERD (gastroesophageal reflux disease) Osteoarthritis Prediabetes pt denies Pulmonary emphysema per medical record - pt denies Osteopenia Macular degeneration 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, along with aortic atherosclerosis > under surveillance Chronic venous insufficiency Cardiomyopathy Iron deficiency anemia Anxiety and depression Aortic stenosis mild/stable - follows with Dr. Hernandez Hx of squamous cell carcinoma Weakness r/t covid infection in June 2023. pt reports has improved Personal history of malignant melanoma of skin Sacroiliitis Surgical History Hx of hemorrhoidectomy History of esophagogastroduodenoscopy (EGD) Status post 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 Walden 09/27/2020 H/O right inguinal hernia repair Laparoscopic Right Inguinal Hernia Repair with mesh, Open Umbilical Hernia Repair(Right) Dr. Walden 09/27/2020 History of prostate biopsy History of melanoma excision History of tooth extraction all teeth removed S/P bronchoscopy Navigational bronchoscopy (2015) History of colonoscopy History of total knee arthroplasty R/L H/O cervical spine surgery ACDF C4-5 (no ROM limitations per PAT RN interview) History of tonsillectomy and adenoidectomy Family History Father Coronary heart disease Heart disease Myocardial infarction Mother Stroke Family/Other Diabetes A-fib Lung cancer Hypertension Other No family history of adverse response to anesthesia No family history of bleeding disorder Denies family history of Ovarian cancer Prostate cancer Breast cancer Colorectal cancer Social History Smoking Status: Former smoker Tobacco Type: Cigarettes Age Started Using Tobacco: 15; Age Quit Using Tobacco: 49; packs per day: 0.5; Second Hand Exposure: No; Do You Dip or Chew Tobacco: No; Tobacco Cessation Education Requested by Patient: No Hx Alcohol Use: No Hx Substance Use: No Preferred Language: Swedish Communication Ability: Effective Visual Impairment: No Limitations Hearing Ability: Normal Feed Research Technician Required: No Beliefs That Will Affect Care: None marital status: / marital status details: lost June 2023 Current Living Situation: Alone current occupational status: retired Other Information That Helps Us Care for You: No Feels Safe at Home: Yes Safety Concerns: Feels Safe At This Time Childhood Exposure to Second-Hand Smoke: Yes Diet: regular Diet Comment: regular caffeine: No during the past year weight has: remained stable Dental Care, Regularly: No Physical Activity Frequency: Daily Seatbelt Use: always Sunscreen Use: No Assistive Devices: Cane Allergies Allergies Allergy/AdvReac Type Severity Reaction Status Date / Time ibuprofen Allergy Intermediate Rash Verified 05/05/24 10:07 Penicillins Allergy Intermediate Rash Verified 05/05/24 10:07 ranitidine Allergy Intermediate Rash Verified 05/05/24 10:07 (stomach) meloxicam Allergy Unknown Unknown Verified 05/05/24 10:07 ramipril Allergy Unknown Unknown Verified 05/05/24 10:07 oxycodone AdvReac Severe Hallucinati Verified 05/05/24 10:07 ons propoxyphene AdvReac Severe Hallucinati Verified 05/05/24 10:07 ons pravastatin AdvReac Intermediate Joint pain Verified 05/05/24 10:07 doxycycline AdvReac Unknown Per Verified 05/05/24 10:07 records (pt denies) Home Meds Home Medications Medication Instructions Recorded Confirmed calcium 600 mg (as carbonate)-vit 1 tab PO BID 02/16/18 05/05/24 D3 20 mcg (800 unit) chewable tablet (Caltrate plus D) cholecalciferol (vitamin D3) 125 5,000 units PO QAM 02/16/18 05/05/24 mcg (5,000 unit) tablet polyethylene glycol 3350 17 17 g PO HS 02/16/18 05/05/24 gram/dose oral powder (Miralax) vit A 5,000 unit-C 120 mg-E 60 1 tab PO QAM 02/16/18 05/05/24 unit-B [id number]-rhgfqxih-[id number] tablet ER (Lipotriad (with lutein)) aspirin 81 mg tablet,delayed 81 mg PO QPM 11/07/23 05/05/24 release (Adult Low Dose Aspirin) guaifenesin 600 mg tablet, 600 mg PO QAM 11/07/23 05/05/24 extended release 12 hr (Mucinex) metoprolol succinate 25 mg 12.5 mg PO QAM 01/01/24 05/05/24 tablet,extended release 24 hr omega 7-ubo-ize-fish oil 1,000 mg 1 cap PO QAM 01/01/24 05/05/24 (120 mg-180 mg) capsule (Fish Oil) sertraline 50 mg tablet 50 mg PO QAM 01/01/24 05/05/24 hydrocortisone acetate 25 mg 25 mg [place] BID PRN Hemorrhoids 04/26/24 05/05/24 rectal suppository (Anusol-HC) tamsulosin 0.4 mg capsule 0.4 mg PO QAM 04/26/24 05/05/24 Previous Rx's Medication Instructions Recorded pantoprazole 40 mg tablet,delayed 40 mg PO BID #180 tabs 12/04/23 release furosemide 20 mg tablet 20 mg PO BID #180 tabs 12/08/23 sodium chloride 1,000 mg soluble 1,000 mg PO BID #180 tabs 12/08/23 tablet loratadine 10 mg tablet (Claritin) 10 mg PO QAM #90 tabs 01/12/24 losartan 50 mg tablet 50 mg PO HS #90 tabs 02/16/24 simvastatin 20 mg tablet (Zocor) 20 mg PO QPM #90 tabs 03/01/24 tramadol 50 mg tablet 50 mg PO HS PRN pain #30 tabs 04/16/24 Results & Data (ED) Vital Signs Vital Signs - 24 hr 05/05/24 07:19 05/05/24 07:19 05/05/24 07:19 Temperature 37 C Temperature Source Oral Pulse Rate 77 Pulse Rate [Apical] Respiratory Rate 20 Respiratory Effort / Characteristics Non-Labored Non-Labored Respiratory Depth Normal Normal Blood Pressure 137/75 Blood Pressure [Right Arm] Blood Pressure Mean 95 Blood Pressure Mean [Right Arm] Pulse Oximetry 97 Oxygen Delivery Method Room Air Room Air Oxygen Flow Rate Sepsis Recent Fever Within 48 Hours No Sepsis New/Unexplained Change in Mental Status No Sepsis Action Taken by Nursing No Action Required Oxygen Flow Rate - Titration Pulse Oximetry Post Tiitration 05/05/24 07:38 05/05/24 07:39 05/05/24 08:12 Temperature Temperature Source Pulse Rate 60 Pulse Rate [Apical] 56 L Respiratory Rate 18 Respiratory Effort / Characteristics Non-Labored Respiratory Depth Normal Blood Pressure Blood Pressure [Right Arm] 111/69 Blood Pressure Mean Blood Pressure Mean [Right Arm] 83 Pulse Oximetry 80 L 100 Oxygen Delivery Method Room Air Nasal Cannula Oxygen Flow Rate 0 4 Sepsis Recent Fever Within 48 Hours Sepsis New/Unexplained Change in Mental Status Sepsis Action Taken by Nursing Oxygen Flow Rate - Titration 4 Pulse Oximetry Post Tiitration 99 05/05/24 09:22 Temperature Temperature Source Pulse Rate Pulse Rate [Apical] 64 Respiratory Rate 18 Respiratory Effort / Characteristics Non-Labored Respiratory Depth Normal Blood Pressure Blood Pressure [Right Arm] 113/62 Blood Pressure Mean Blood Pressure Mean [Right Arm] 79 Pulse Oximetry 99 Oxygen Delivery Method Nasal Cannula Oxygen Flow Rate 4 Sepsis Recent Fever Within 48 Hours Sepsis New/Unexplained Change in Mental Status Sepsis Action Taken by Nursing Oxygen Flow Rate - Titration Pulse Oximetry Post Tiitration Laboratory Data Attestation: I reviewed the patient's lab results. 05/06/24 07:08 05/06/24 07:08 Lab Results 05/05/24 05/05/24 05/05/24 Range/Units 07:15 07:18 09:26 WBC 4.32 L (4.8-10.8) K/ul RBC 4.28 L (4.70-6.10) M/uL Hgb 13.1 L (14.0-18.0) g/dl Hct 38.6 L (42.0-52.0) % MCV 90.2 (80.0-100.0) fL MCH 30.6 (25.0-34.0) pg MCHC 33.9 (32.0-36.0) g/dL RDW Std Deviation 48.8 H (36.4-46.3) fL RDW Coeff of Brian 14.6 H (11.5-14.5) % Plt Count 118 L (130-400) K/uL MPV 9.1 L (9.4-12.4) fL Immature Gran % (Auto) 0.2 % Neut % (Auto) 80.1 % Lymph % (Auto) 9.0 % Ray % (Auto) 8.6 % Eos % (Auto) 1.4 % Baso % (Auto) 0.7 % Neut # (Auto) 3.46 (1.40-6.50) K/uL Lymph # (Auto) 0.39 L (1.20-3.40) K/uL Ray # (Auto) 0.37 (0.11-0.59) K/uL Eos # (Auto) 0.06 (0.00-0.50) K/uL Baso # (Auto) 0.03 (0.00-0.20) K/uL Immature Gran # (Auto) 0.01 (0.01-0.20) K/uL PT 11.0 (9.0-12.0) Seconds INR 1.0 (0.9-1.1) Sodium 140 (136-145) mmol/L Potassium 3.8 (3.5-5.1) mmol/L Chloride 103 (98-107) mmol/L Carbon Dioxide 31 (21-32) mmol/L Anion Gap 6 (3-11) BUN 24 H (6-23) mg/dl Creatinine 0.85 (0.6-1.4) mg/dl Est Cr Clr Drug Dosing 64.7 ml/min eGFR 85.68 BUN/Creatinine Ratio 28.2 H (10-20) Glucose 125 H (70-99(Fasting)) mg/dl Calcium 9.2 (8.6-10.3) mg/dl Total Bilirubin 0.6 (0.2-1.0) mg/dl Direct Bilirubin 0.1 (0-0.2) mg/dl AST 19 (13-39) U/L ALT 14 (7-52) U/L Alkaline Phosphatase 46 (34-104) U/L Troponin I High Sens 41.4 H 545.2 H* D (0-20) pg/ml Total Protein 6.2 (6.0-8.3) gm/dl Albumin 4.2 (3.4-5.0) gm/dl Globulin 2.0 L (2.5-4.0) gm/dl Albumin/Globulin Ratio 2.1 H (0.9-2) Lipase 28 (11-82) U/L Adenovirus (PCR) Not Detected (NotDetected) B. pertussis DNA (PCR) Not Detected (NotDetected) B.parapertussis DNA PCR Not Detected (NotDetected) C. pneumoniae DNA (PCR) Not Detected (NotDetected) Coronavirus OC43 (PCR) Not Detected (NotDetected) Coronavirus HKU1 (PCR) Not Detected (NotDetected) Coronavirus 229E (PCR) Not Detected (NotDetected) SARS-CoV-2 (PCR) Not Detected (NotDetected) Coronavirus NL63 (PCR) Not Detected (NotDetected) Human Metapneumovir PCR Not Detected (NotDetected) Influenza Type A (PCR) Not Detected (NotDetected) Influenza Type B (PCR) Not Detected (NotDetected) M. pneumoniae (PCR) Not Detected (NotDetected) Parainfluenza 1 (PCR) Not Detected (NotDetected) Parainfluenza 2 (PCR) Not Detected (NotDetected) Parainfluenza 3 (PCR) Not Detected (NotDetected) Parainfluenza 4 (PCR) Not Detected (NotDetected) RSV (PCR) Not Detected (NotDetected) Entero/Rhino (PCR) Not Detected (NotDetected) Administered Medications Acetaminophen (Acetaminophen 500 Mg Tab) 500 mg PO BID JESUS Stop: 06/04/24 20:59 Last Admin: 05/06/24 08:41 Dose: 500 mg Documented By: Admin: 05/05/24 20:15 Dose: 500 mg Documented By: LEANN Aspirin (Aspirin 81 Mg Ectab) 81 mg PO QPM JESUS Stop: 06/04/24 20:59 Last Admin: 05/05/24 20:15 Dose: 81 mg Documented By: LEANN Calcium/Vitamin D (Calcium 600mg + Vit D 400 Iu Tab) 1 tab PO BID JESUS Stop: 06/04/24 20:59 Last Admin: 05/06/24 08:41 Dose: 1 tab Documented By: Admin: 05/05/24 20:18 Dose: 1 tab Documented By: LEANN Enoxaparin Sodium (Enoxaparin Inj 40 Mg/0.4 Ml Syr) 40 mg SQ QPM JESUS Stop: 06/04/24 20:59 Last Admin: 05/05/24 21:35 Dose: 40 mg Documented By: LEANN Furosemide (Furosemide 20 Mg Tab) 20 mg PO BID JESUS Stop: 06/04/24 20:59 Last Admin: 05/06/24 08:41 Dose: 20 mg Documented By: Admin: 05/05/24 20:18 Dose: 20 mg Documented By: LEANN Guaifenesin (Guaifenesin 600 Mg Tabcr) [facility] [place] Stop: 06/05/24 08:59 Last Admin: 05/06/24 08:41 Dose: 600 mg Documented By: ELLE Loratadine (Loratadine 10 Mg Tab) 10 [facility] [place] Stop: 06/05/24 08:59 Last Admin: 05/06/24 08:41 Dose: 10 mg Documented By: ELLE Losartan Potassium (Losartan Potassium 50 Mg Tab) 50 mg PO [facility] Stop: 06/04/24 20:59 Last Admin: 05/05/24 20:15 Dose: 50 mg Documented By: LEANN Melatonin (Melatonin 3 Mg Tab) 6 mg PO PRN PRN Reason: Sleep Stop: 06/04/24 21:44 Last Admin: 05/05/24 21:56 Dose: 6 mg Documented By: LEANN Pantoprazole Sodium (Pantoprazole 40 Mg Tab) 40 mg PO BID [facility] Stop: 06/04/24 20:59 Last Admin: 05/06/24 08:41 Dose: 40 mg Documented By: Admin: 05/05/24 20:15 Dose: 40 mg Documented By: LEANN Polyethylene Glycol (Polyethylene (Miralax) 17 Gm Pack) 17 gm PO [facility] Stop: 06/04/24 20:59 Last Admin: 05/05/24 20:11 Dose: Not Given Documented By: LEANN Sertraline HCl (Sertraline Hcl 50 Mg Tablet) 50 mg PO [facility] Stop: 06/05/24 08:59 Last Admin: 05/06/24 08:41 Dose: 50 mg Documented By: ELLE Simvastatin (Simvastatin 20 Mg Tab) 20 mg PO QPM JESUS Stop: 06/04/24 20:59 Last Admin: 05/05/24 20:17 Dose: 20 mg Documented By: LEANN Sodium Chloride (Sodium Chloride 1 Gm Tablet) 1 gm PO BID JESUS Stop: 06/04/24 20:59 Last Admin: 05/06/24 08:41 Dose: 1 gm Documented By: Admin: 05/05/24 20:16 Dose: 1 gm Documented By: LEANN Tamsulosin HCl (Tamsulosin Hcl 0.4 Mg Cap) 0.4 mg PO [facility] Stop: 06/05/24 08:59 Last Admin: 05/06/24 08:41 Dose: 0.4 mg Documented By: ELLE Tramadol HCl (Tramadol Hcl 50 Mg Tablet) 50 mg PO HS PRN PRN Reason: pain Stop: 06/04/24 11:45 Last Admin: 05/06/24 00:22 Dose: 50 mg Documented By: LEANN Vitamin D (Cholecalciferol 125 Mcg (5,000 Units) Tab) 125 mcg PO QAM JESUS Stop: 06/05/24 08:59 Last Admin: 05/06/24 08:41 Dose: 125 mcg Documented By: ELLE Discontinued Medications Acetaminophen (Acetaminophen 500 Mg Tab) 500 mg PO ONE STA Stop: 05/05/24 14:08 Last Admin: 05/05/24 14:23 Dose: 500 mg Documented By: JEFFREY Aspirin (Aspirin 81 Mg Chew) 324 mg PO ONE STA Stop: 05/05/24 15:38 Last Admin: 05/05/24 15:43 Dose: 324 mg Documented By: JEFFREY Furosemide (Furosemide 20 Mg Tab) 20 mg PO ONE STA Stop: 05/05/24 10:47 Last Admin: 05/05/24 12:05 Dose: 20 mg Documented By: JEFFREY Gadobutrol (Gadobutrol 65ml Vial) 7.5 ml IV ONCE ONE Stop: 05/05/24 12:53 Last Admin: 05/05/24 12:53 Dose: 7.5 ml Documented By: HAILE Guaifenesin (Guaifenesin 600 Mg Tabcr) 600 mg PO ONE STA Stop: 05/05/24 10:47 Last Admin: 05/05/24 12:04 Dose: 600 mg Documented By: JEFFREY Sodium Chloride (Nss) 1,000 mls @ 999 mls/hr IV .Q1H1M ONE Stop: 05/05/24 08:09 Last Infusion: 05/05/24 08:35 Dose: Infused Documented By: Admin: 05/05/24 07:25 Dose: 999 mls/hr Documented By: JEFFREY Famotidine (Pepcid 20mg Iv Push) 20 mg in 5 mls @ 2.5 mls/min IV NOW STA Stop: 05/05/24 07:10 Last Admin: 05/05/24 07:25 Dose: 2.5 mls/min Documented By: JEFFREY Ioversol (Optiray 320 125ml) 112 ml IV ONCE ONE Stop: 05/05/24 08:12 Last Admin: 05/05/24 08:11 Dose: 112 ml Documented By: JULIO Metoprolol Succinate (Metoprolol Succ 25mg Ext Rel Tab) 12.5 mg PO ONE STA Stop: 05/05/24 10:47 Last Admin: 05/05/24 12:05 Dose: 12.5 mg Documented By: JEFFREY Ondansetron HCl (Ondansetron Inj 2 Mg/Ml 2 Ml Vial) 4 mg IV NOW STA Stop: 05/05/24 07:10 Last Admin: 05/05/24 08:35 Dose: Not Given Documented By: MARY JANE Pantoprazole Sodium (Pantoprazole 40 Mg Tab) 40 mg PO ONE STA Stop: 05/05/24 10:47 Last Admin: 05/05/24 12:05 Dose: 40 mg Documented By: JEFFREY Sertraline HCl (Sertraline Hcl 50 Mg Tablet) 50 mg PO NOW STA Stop: 05/05/24 10:47 Last Admin: 05/05/24 12:05 Dose: 50 mg Documented By: JEFFREY Tamsulosin HCl (Tamsulosin Hcl 0.4 Mg Cap) 0.4 mg PO NOW STA Stop: 05/05/24 10:47 Last Admin: 05/05/24 12:05 Dose: 0.4 mg Documented By: JEFFREY Imaging Data Radiologist's Impression: Brain MRI 05/05/24 10:08 MR brain wo/w con HISTORY: 83 years-old Male new onset vertigo acute vertigo COMPARISON: Head CT of same day TECHNIQUE: Multiplanar multisequence MRI of the brain was obtained with and without IV contrast FINDINGS: No restricted diffusion to suggest acute or subacute infarct. Midline structures are unremarkable. Degenerative pannus posterior to the dens. No acute intracranial hemorrhage, midline shift, abnormal extra-axial collection, hydrocephalus or intra-axial mass. No pathologic blooming artifact. Involutional changes. Moderate scattered T2/FLAIR hyperintense foci throughout the white matter suggests chronic microvascular ischemic disease no abnormal enhancement. Cerebral venous sinuses and major arterial flow voids appear patent. Skull, orbits and soft tissues are within normal limits. Mild mucosal thickening of the ethmoid air cells. Small mastoid effusions. IMPRESSION: 1. No acute intracranial abnormality. No acute or subacute infarct. 2. Involutional changes with chronic microvascular ischemic disease. 3. No abnormal enhancement. ACT 112: Negative or not required by law. The above report was generated using voice recognition software. It may contain grammatical, syntax or spelling errors. Electronically signed by: Sb Velásquez M.D. 05/05/2024 1:50 PM Discharge Plan Visit Data Chief Complaint: Vomiting Stated Complaint: NAUSEA, VOMITING, AB PAIN ED Provider: Shahzad Winston Discharge Problem: Vertigo, Elevated troponin, Nausea & vomiting, Hypoxia Patient Disposition: Admitted As Inpatient Discharge Instructions Interventions: ED Discharge Assessment Last Done: 05/05/24 11:38 Discharge Problem: Nausea & vomiting Qualifiers: Vomiting type: unspecified Qualified Code(s): R11.2 - Nausea with vomiting, unspecified
[2024-05-05] MEDS: SODIUM CHLORIDE 0.9% 1,000 ML IV ONE (07:25)
[2024-05-05] MEDS: FAMOTIDINE 20MG IV PUSH 20 MG/5 ML SYR IV STA (07:25)
[2024-05-05 07:33] LABS: Basophils # (auto) 0.03 K/uL (0.00-0.20); Basophils % (auto) 0.7 %; Eosinophils # (auto) 0.06 K/uL (0.00-0.50); Eosinophils % (auto) 1.4 %; Hematocrit (blood only) 38.6 % (42.0-52.0); Hemoglobin 13.1 g/dl (14.0-18.0); Immature Granulocytes # (auto) 0.01 K/uL (0.01-0.20); Immature Granulocytes % (auto) 0.2 %; Lymphocytes # (auto) 0.39 K/uL (1.20-3.40); Mean Corpuscular Hemoglobin 30.6 pg (25.0-34.0); Mean Corpuscular Hgb Conc 33.9 g/dL (32.0-36.0); Mean Corpuscular Volume 90.2 fL (80.0-100.0); Mean Platelet Volume 9.1 fL (9.4-12.4); Monocytes # (auto) 0.37 K/uL (0.11-0.59); Monocytes % (auto) 8.6 %; Neutrophils # (auto) 3.46 K/uL (1.40-6.50); Neutrophils % (auto) 80.1 %; Platelet Count 118 K/uL (130-400); RDW Coefficient of Variation 14.6 % (11.5-14.5); RDW Standard Deviation 48.8 fL (36.4-46.3); Red Blood Count 4.28 M/uL (4.70-6.10); White Blood Count 4.32 K/ul (4.8-10.8)
[2024-05-05 07:50] LABS: Albumin Globulin Ratio 2.1 (0.9-2); Albumin Level 4.2 gm/dl (3.4-5.0); BUN Creatinine Ratio 28.2 (10-20); Bilirubin Direct 0.1 mg/dl (0-0.2); Bilirubin,Total 0.6 mg/dl (0.2-1.0); Calcium 9.2 mg/dl (8.6-10.3); Creatinine Clr Calc Pharmacy 64.7 ml/min; Potassium 3.8 mmol/L (3.5-5.1); Total Protein 6.2 gm/dl (6.0-8.3)
[2024-05-05 07:55] LABS: Troponin I High Sensitivity 41.4 pg/ml (0-20)
[2024-05-05] MEDS: OPTIRAY 320 125ml IV ONE (08:11)
--- NOTE | 2024-05-05 08:22 | XRay Report ---
EXAM: XR chest 1V portable CLINICAL HISTORY: Chest pain, nonspecific TECHNIQUE: X-ray images of the chest were obtained in 1 frontal projections. COMPARISON: Compared to previous study done at 04/27/2024. FINDINGS: Pulmonary Parenchyma: Stable left lower zone opacity with blunted left costophrenic angle. Stable right lower zone para cardiac opacity. Heart and Mediastinum: Prominent aortic arch. Prominent bilateral hilar bronchovascular markings. Heart size could not be properly assessed. Bony Thorax: Bony thorax appears intact without fractures or deformities. Soft Tissues: Right supraspinatus calcific tendinitis. IMPRESSION: 1. Stable left lower zone opacity with mild pleural effusion 2. Stable right lower zone para cardiac opacity, may suggest small infiltrate. Electronically signed by Wong Zayas 05-05-2024 08:20 AM
[2024-05-05 08:23] LABS: Adenovirus PCR Not Detected (NotDetected); Bordetella parapertussis PCR Not Detected (NotDetected); Bordetella pertussis PCR Not Detected (NotDetected); Chlamydia pneumoniae PCR Not Detected (NotDetected); Coronavirus 229E PCR Not Detected (NotDetected); Coronavirus CoV-2 (COVID19)PCR Not Detected (NotDetected); Coronavirus HKU1 PCR Not Detected (NotDetected); Coronavirus NL63 PCR Not Detected (NotDetected); Coronavirus OC43PCR Not Detected (NotDetected); Human Metapneumovirus PCR Not Detected (NotDetected); Influenza A PCR Not Detected (NotDetected); Influenza B PCR Not Detected (NotDetected); Mycoplasma pneumoniae PCR Not Detected (NotDetected); Parainfluenza Virus 1 PCR Not Detected (NotDetected); Parainfluenza Virus 2 PCR Not Detected (NotDetected); Parainfluenza Virus 3 PCR Not Detected (NotDetected); Parainfluenza Virus 4 PCR Not Detected (NotDetected); Respiratory Syncytial VirusPCR Not Detected (NotDetected); Rhinovirus/Enterovirus PCR Not Detected (NotDetected)
[2024-05-05] MEDS: ONDANSETRON INJ 2 MG/ML 2 ML VIAL IV STA (08:35)
--- NOTE | 2024-05-05 08:54 | CT Scan Report ---
CTA ANGIOGRAPHY OF THE HEAD CLINICAL HISTORY: Vertigo. COMPARISON STUDY: CTA of the head November 04, 2023. TECHNIQUE: Helical axial images of the head were obtained following uneventful intravenous administr ation of 112 cc of Optiray. Sagittal and coronal reconstructions were viewed as well as maximal inten sity projections on an independent 3-D workstation. Automated exposure control was utilized for the study. A dose lowering technique was utilized adhering to the principles of ALARA. FINDINGS: No acute intracranial hemorrhage, midline shift or mass effect is present. There are no ext ra-axial collections. There is extensive calcified plaque within the bilateral cavernous carotids wit hout significant stenosis. No large vessel occlusion is identified. Moderate stenosis of the left daniela tebral artery as it passes through the dura is again noted. Right vertebral artery is dominant. Basil ar artery is patent. There is persistence of the left posterior cerebral artery which is patent . The right posterior cerebral artery is patent. IMPRESSION: No large vessel occlusion. No intracranial aneurysm. No change since CTA of November 04, 2023. ACT 112: Negative or not required by law. Electronically signed by: Ford Shipley M.D. 05/05/2024 8:52 AM
--- NOTE | 2024-05-05 08:55 | CT Scan Report ---
CT head/brain wo con CLINICAL HISTORY: vertigo. TECHNIQUE: Multiple axial CT images of the head were obtained without contrast. A dose lowering tech nique was utilized adhering to the principles of ALARA. CT DOSE: 2670 COMPARISON: 11/04/2023 FINDINGS: No intracranial hemorrhage seen. No mass effect, midline shift, or hydrocephalus. There are small areas of nonspecific hypodensity in the anterior left periventricular white matter which may b e progressive. This area was not well seen on the prior exam due to motion. No skull fracture seen. IMPRESSION: 1. No intracranial hemorrhage. 2. Possibly progressive small areas of nonspecific hypodensity left periventricular white matter. If there are no clinical symptoms of left-sided stroke, these are likely chronic. If there are symptoms of left-sided stroke, these could represent subacute infarction. ACT 112: Negative or not required by law. The above report was generated using voice recognition software. It may contain grammatical, syntax o r spelling errors. Electronically signed by: Estuardo Molina M.D. 05/05/2024 8:53 AM
--- NOTE | 2024-05-05 09:11 | CT Scan Report ---
CT angio neck with con CLINICAL HISTORY: 83 years-old Male with vertigo. Acute vertigo COMPARISON STUDY: Head CT of same day, CT neck 11/04/2023, PET/CT from outside facility 04/20/2024 DAR BENITEZ: Following the IV administration of 112 mL of Optiray, CT angiogram of the neck was performed f rom the aortic arch to the skull base. Images are reviewed in the axial, sagittal, and coronal planes . 3-D MIPS images are created and assessed. IV contrast was administered without complication. All me asurements were calculated based on NASCET criteria. A dose lowering technique was utilized adhering to the principles of ALARA. FINDINGS: Three-vessel morphology of the thoracic aortic arch. Patency of innominate and image subclavian arter ies. Moderate atherosclerosis with patency of the common carotid arteries. There is advanced atherosc lerotic plaque of the carotid bulbs. There is 70% stenosis of the origin of the left ICA on image 221 series 7 which is similar to prior. There is 50% stenosis on the right. High-grade stenosis/near occ lusion at the origin of the right external carotid artery. There is moderate stenosis at the origin of the vertebral arteries. Dominant right vertebral artery. The vertebral arteries are patent bilaterally. No pneumothorax. There is pulmonary emphysema. Partial ly imaged nodular foci within the right lung apex measuring up to approximately 1.6 cm. Degenerative and postoperative changes of the cervical spine. IMPRESSION: 1. Severe atherosclerosis of the carotid bulbs. There is 70% stenosis at the origin of the left ICA w ith 50% stenosis on the right. Findings appear generally unchanged from the November 04, 2023 exam. 2. 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 3. Emphysema with partially imaged nodular foci of the right upper lobe, better seen on the PET/CT fr om 04/20/2024. ACT 112: Negative or not required by law. The above report was generated using voice recognition software. It may contain grammatical, syntax o r spelling errors. Electronically signed by: Sb Velásquez M.D. 05/05/2024 9:09 AM
--- NOTE | 2024-05-05 09:11 | CT Scan Report ---
CT OF THE ABDOMEN AND PELVIS WITH CONTRAST CLINICAL HISTORY: Abdominal pain, nausea and vomiting. COMPARISON STUDY: CT of the abdomen and pelvis February 12, 2023. PET/CT April 20, 2024. Chest CT April 07, 2024. TECHNIQUE: Following IV administration of 112 mL of Optiray, axial images of the abdomen and pelvis w ere obtained from the lung bases to the proximal femurs. Images were reviewed in the axial, sagittal, and coronal planes. IV contrast was administered without complication. Automated exposure control w as utilized for the study. A dose lowering technique was utilized adhering to the principles of ALAR A. CT DOSE: 2670.24 mGy.cm FINDINGS: Emphysema is again noted. A spiculated 2.2 cm left lower lobe lesion on image 35 remains un changed since chest CT April 07, 2024. This appears to contain fat attenuation. An irregular right middle lobe opacity which also contains fat attenuation is similar to prior chest CT. There is a smal l hiatal hernia. No pneumatosis, free air or portal venous gas is present. Left renal cyst is noted. No hydronephrosis. There are small gallstones within the gallbladder. There is no pericholecystic inf iltration. The gallbladder is mildly distended. Liver, spleen, adrenal glands and pancreas are unrema rkable. 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 There is no lymphadenopathy. Note is made of extensive colonic diverticulosis without evidence for acute diverticulitis. There is no evidence f or a bowel obstruction. Extensive aortoiliac atherosclerotic plaque is present. There are no acute fr actures within lumbar spine, pelvis or hips. IMPRESSION: 1. No acute process within the abdomen or pelvis. 2. No bowel obstruction. No bowel wall thickening. 3. Colonic diverticulosis. No evidence for acute diverticulitis. 4. Spiculated left lower lobe nodule and spiculated mass-like right middle lobe opacity, unchanged si nce chest CT of April 07, 2024. The findings remain indeterminate and continued imaging follow-up i s recommended. ACT 112: Negative or not required by law. Electronically signed by: Ford Shipley M.D. 05/05/2024 9:10 AM
--- NOTE | 2024-05-05 10:08 | History & Physical Report ---
Date of Service May 05, 2024 Assessment & Plan (1) Vertigo: (2) Elevated troponin: (3) Thrombocytopenia: Plan 83-year-old male presents to the ER with new onset vertigo lasting for 2 hours. Asymptomatic at time of admission. #Vertigo Appears to have resolved and not reproducible on exam but no history and significant risk factors for CVA/TIA therefore will continue workup with MRI brain Stroke order set without TNK protocol ordered No need for neurology consult unless stroke seen on brain MRI No need for PT/OT/speech therapy unless symptoms return Continue aspirin, additional antiplatelet deferred pending brain MRI results, continue simvastatin Lipid panel and HbA1c with a.m. labs #Elevated troponin No chest pain or shortness of breath to suggest ACS More supportive of CVA/TIA rather than peripheral cause of vertigo as above TTE, continue to trend troponin to peak #Thrombocytopenia Mild, repeat with a.m. labs #Hypertension Continue losartan, metoprolol, furosemide VTE prophylaxis - Lovenox 40 mg subcu daily Diet - heart healthy Disposition - observation to med/tele Admission and Anticipated Discharge Date Admission Date: May 05, 2024 History of Present Illness Chief Complaint: Vertigo Primary Care Provider: DO Vane Cain is an 83-year-old male who presents to the ER with vertigo. This started suddenly at 5 AM when he woke up and looked over the clock with everything going in circles. Hopefully waking up the room was spinning and he felt nauseous. He somehow made it to the restroom and started vomiting. He denies any chest pain, shortness of breath, palpitations, weight gain, leg swelling, presyncope or syncope. He called his son when this happened and his systolic blood pressure was in the 180s initially which prompted his EMS call. This sensation lasted for around 2 hours and was resolved shortly after getting ondansetron by EMS. He was noted to be 90% on room air by EMS and started on 6 L/min O2. Allergies Allergy/AdvReac Type Severity Reaction Status Date / Time ibuprofen Allergy Intermediate Rash Verified 05/05/24 10:07 Penicillins Allergy Intermediate Rash Verified 05/05/24 10:07 ranitidine Allergy Intermediate Rash Verified 05/05/24 10:07 (stomach) meloxicam Allergy Unknown Unknown Verified 05/05/24 10:07 ramipril Allergy Unknown Unknown Verified 05/05/24 10:07 oxycodone AdvReac Severe Hallucinati Verified 05/05/24 10:07 ons propoxyphene AdvReac Severe Hallucinati Verified 05/05/24 10:07 ons pravastatin AdvReac Intermediate Joint pain Verified 05/05/24 10:07 doxycycline AdvReac Unknown Per Verified 05/05/24 10:07 records (pt denies) Home Medications Medication Instructions Recorded Confirmed Type calcium 600 mg (as carbonate)-vit 1 tab PO BID 02/16/18 05/05/24 History D3 20 mcg (800 unit) chewable tablet (Caltrate plus D) cholecalciferol (vitamin D3) 125 5,000 units PO QAM 02/16/18 05/05/24 History mcg (5,000 unit) tablet polyethylene glycol 3350 17 17 g PO HS 02/16/18 05/05/24 History gram/dose oral powder (Miralax) vit A 5,000 unit-C 120 mg-E 60 1 tab PO QAM 02/16/18 05/05/24 History unit-B [id number] tablet ER (Lipotriad (with lutein)) aspirin 81 mg tablet,delayed 81 mg PO QPM 11/07/23 05/05/24 History release (Adult Low Dose Aspirin) guaifenesin 600 mg tablet, 600 mg PO QAM 11/07/23 05/05/24 History extended release 12 hr (Mucinex) pantoprazole 40 mg tablet,delayed 40 mg PO BID #180 tabs 12/04/23 05/05/24 Rx release furosemide 20 mg tablet 20 mg PO BID #180 tabs 12/08/23 05/05/24 Rx sodium chloride 1,000 mg soluble 1,000 mg PO BID #180 tabs 12/08/23 05/05/24 Rx tablet metoprolol succinate 25 mg 12.5 mg PO QAM 01/01/24 05/05/24 History tablet,extended release 24 hr omega 5-qxd-znr-fish oil 1,000 mg 1 cap PO QAM 01/01/24 05/05/24 History (120 mg-180 mg) capsule (Fish Oil) sertraline 50 mg tablet 50 mg PO QAM 01/01/24 05/05/24 History loratadine 10 mg tablet (Claritin) 10 mg PO QAM #90 tabs 01/12/24 05/05/24 Rx losartan 50 mg tablet 50 mg PO HS #90 tabs 02/16/24 05/05/24 Rx simvastatin 20 mg tablet (Zocor) 20 mg PO QPM #90 tabs 03/01/24 05/05/24 Rx tramadol 50 mg tablet 50 mg PO HS PRN pain #30 tabs 04/16/24 05/05/24 Rx hydrocortisone acetate 25 mg 25 mg MA BID PRN Hemorrhoids 04/26/24 05/05/24 History rectal suppository (Anusol-HC) tamsulosin 0.4 mg capsule 0.4 mg PO QAM 04/26/24 05/05/24 History Past Med/Surg History Problem List (Updated 05/05/24 @ 20:49 by Diaz Kelly MD) Thrombocytopenia Elevated troponin (Acute) Vertigo (Acute) Anxiety and depression Anemia (Acute) Leukopenia (Acute) Varicose veins of both legs with edema Sialorrhea Pulmonary hypertension Cardiomyopathy Aortic stenosis, mild Hypertrophy of both inferior nasal turbinates Chronic rhinitis Lumbar back pain Thoracic back pain Coronary artery calcification RBBB Prostate cancer Superficial spreading malignant melanoma of skin Chronic venous insufficiency 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, along with aortic atherosclerosis > under surveillance Macular degeneration 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 resolved. Pulmonary nodules "Benign" navigational bronchoscopy/biopsy (2015) Pulmonary hypertension Spinal stenosis History of prostate cancer (2011) no surgical intervention, treated hormone therapy. 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 Hernandez Hx of squamous cell carcinoma Weakness r/t covid infection in June 2023. pt reports has improved Personal history of malignant melanoma of skin Sacroiliitis Surgical History Hx of hemorrhoidectomy History of esophagogastroduodenoscopy (EGD) Status post 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 Walden 09/27/2020 H/O right inguinal hernia repair Laparoscopic Right Inguinal Hernia Repair with mesh, Open Umbilical Hernia Repair(Right) Dr. Walden 09/27/2020 History of prostate biopsy History of melanoma excision History of tooth extraction all teeth removed S/P bronchoscopy Navigational bronchoscopy (2015) History of colonoscopy History of total knee arthroplasty R/L H/O cervical spine surgery ACDF C4-5 (no ROM limitations per PAT RN interview) History of tonsillectomy and adenoidectomy Family History Father Coronary heart disease Heart disease Myocardial infarction Mother Stroke Family/Other Diabetes A-fib Lung cancer Hypertension Other No family history of adverse response to anesthesia No family history of bleeding disorder Denies family history of Ovarian cancer Prostate cancer Breast cancer Colorectal cancer Social History Smoking Status: Former smoker Tobacco Type: Cigarettes Age Started Using Tobacco: 15; Age Quit Using Tobacco: 49; packs per day: 0.5; Second Hand Exposure: No; Do You Dip or Chew Tobacco: No; Tobacco Cessation Education Requested by Patient: No Hx Alcohol Use: No Hx Substance Use: No Preferred Language: Kazakh Communication Ability: Effective Visual Impairment: No Limitations Hearing Ability: Normal 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 Beliefs That Will Affect Care: None marital status: / marital status details: lost June 2023 Current Living Situation: Alone current occupational status: retired Other Information That Helps Us Care for You: No Feels Safe at Home: Yes Safety Concerns: Feels Safe At This Time Childhood Exposure to Second-Hand Smoke: Yes Diet: regular Diet Comment: regular caffeine: No during the past year weight has: remained stable Dental Care, Regularly: No Physical Activity Frequency: Daily Seatbelt Use: always Sunscreen Use: No Assistive Devices: Cane and Glasses Review of Systems Review of Systems: All systems reviewed & are unremarkable except as noted in HPI & below Physical Exam Constitutional: WD/WN, vitals as above Eyes: PERRL, conjunctivae normal, anicteric sclerae ENMT: Mouth: + dry oral mucous membranes Respiratory: normal respiratory effort, lungs clear to auscultation Cardiovascular: Rate/Rhythm: regular rate and regular rhythm Heart Sounds: no murmur Extremities: normal capillary refill and + pedal edema (trace bilateral equal) Gastrointestinal (Abdomen): normal bowel sounds, soft, nontender, no hepatosplenomegaly Musculoskeletal: no cyanosis or clubbing, extremities motor strength 5/5 Neurologic: moves all extremities and awake; no focal motor deficits and not confused Speech / Cognition: normal speech Motor/Sensory: no tremor and no pronator drift Cranial Nerves: PERRL, EOM intact bilaterally, normal facial strength, tongue midline, able to rotate head bilaterally, able to elevate shoulders bilaterally, no nystagmus and symmetric palate elevation Coordination: normal yyhmap-oc-qexx test Psychiatric: A+Ox3, euthymic affect Results & Data Results & Data Vital Signs (Past 12 Hours) Vital Signs Temp Pulse Pulse Resp BP BP Pulse Ox 05/05/24 09:22 64 18 113/62 99 05/05/24 08:12 60 05/05/24 07:39 56 L 18 111/69 100 05/05/24 07:38 80 L 05/05/24 07:19 05/05/24 07:19 37 C 77 20 137/75 97 O2 Del Method O2 Flow Rate 05/05/24 09:22 Nasal Cannula 4 05/05/24 08:12 05/05/24 07:39 Nasal Cannula 4 05/05/24 07:38 Room Air 0 05/05/24 07:19 Room Air 05/05/24 07:19 Room Air Laboratory Results Abnormal lab results 05/05/24 05/05/24 Range/Units 07:15 09:26 WBC 4.32 L (4.8-10.8) K/ul RBC 4.28 L (4.70-6.10) M/uL Hgb 13.1 L (14.0-18.0) g/dl Hct 38.6 L (42.0-52.0) % RDW Std Deviation 48.8 H (36.4-46.3) fL RDW Coeff of Brian 14.6 H (11.5-14.5) % Plt Count 118 L (130-400) K/uL MPV 9.1 L (9.4-12.4) fL Lymph # (Auto) 0.39 L (1.20-3.40) K/uL BUN 24 H (6-23) mg/dl BUN/Creatinine Ratio 28.2 H (10-20) Glucose 125 H (70-99(Fasting)) mg/dl Troponin I High Sens 41.4 H 545.2 H* D (0-20) pg/ml Globulin 2.0 L (2.5-4.0) gm/dl Albumin/Globulin Ratio 2.1 H (0.9-2) Diagnostic Findings CT head/brain wo con CLINICAL HISTORY: vertigo. TECHNIQUE: Multiple axial CT images of the head were obtained without contrast. A dose lowering technique was utilized adhering to the principles of ALARA. CT DOSE: 2670 COMPARISON: 11/04/2023 FINDINGS: No intracranial hemorrhage seen. No mass effect, midline shift, or hydrocephalus. There are small areas of nonspecific hypodensity in the anterior left periventricular white matter which may be progressive. This area was not well seen on the prior exam due to motion. No skull fracture seen. IMPRESSION: 1. No intracranial hemorrhage. 2. Possibly progressive small areas of nonspecific hypodensity left periventricular white matter. If there are no clinical symptoms of left-sided stroke, these are likely chronic. If there are symptoms of left-sided stroke, these could represent subacute infarction. CTA ANGIOGRAPHY OF THE HEAD CLINICAL HISTORY: Vertigo. COMPARISON STUDY: CTA of the head November 04, 2023. TECHNIQUE: Helical axial images of the head were obtained following uneventful intravenous administration of 112 cc of Optiray. Sagittal and coronal reconstructions were viewed as well as maximal intensity projections on an independent 3-D workstation. Automated exposure control was utilized for the study. A dose lowering technique was utilized adhering to the principles of ALARA. FINDINGS: No acute intracranial hemorrhage, midline shift or mass effect is present. There are no extra-axial collections. There is extensive calcified plaque within the bilateral cavernous carotids without significant stenosis. No large vessel occlusion is identified. Moderate stenosis of the left vertebral artery as it passes through the dura is again noted. Right vertebral artery is dominant. Basilar artery is patent. There is persistence of the left posterior cerebral artery which is patent. The right posterior cerebral artery is patent. IMPRESSION: No large vessel occlusion. No intracranial aneurysm. No change since CTA of November 04, 2023. CT angio neck with con CLINICAL HISTORY: 83 years-old Male with vertigo. Acute vertigo COMPARISON STUDY: Head CT of same day, CT neck 11/04/2023, PET/CT from outside facility 04/20/2024 TECHNIQUE: Following the IV administration of 112 mL of Optiray, CT angiogram of the neck was performed from the aortic arch to the skull base. Images are reviewed in the axial, sagittal, and coronal planes. 3-D MIPS images are created and assessed. IV contrast was administered without comp lication. All measurements were calculated based on NASCET criteria. A dose lowering technique was utilized adhering to the principles of ALARA. FINDINGS: Three-vessel morphology of the thoracic aortic arch. Patency of innominate and image subclavian arteries. Moderate atherosclerosis with patency of the common carotid arteries. There is advanced atherosclerotic plaque of the carotid bulbs. There is 70% stenosis of the origin of the left ICA on image 221 series 7 which is similar to prior. There is 50% stenosis on the right. High-grade stenosis/near occlusion at the origin of the right external carotid artery. There is moderate stenosis at the origin of the vertebral arteries. Dominant right vertebral artery. The vertebral arteries are patent bilaterally. No pneumothorax. There is pulmonary emphysema. Partially imaged nodular foci within the right lung apex measuring up to approximately 1.6 cm. Degenerative and postoperative changes of the cervical spine. IMPRESSION: 1. Severe atherosclerosis of the carotid bulbs. There is 70% stenosis at the origin of the left ICA with 50% stenosis on the right. Findings appear generally unchanged from the November 04, 2023 exam. 2. 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 3. Emphysema with partially imaged nodular foci of the right upper lobe, better seen on the PET/CT from 04/20/2024. CT OF THE ABDOMEN AND PELVIS WITH CONTRAST CLINICAL HISTORY: Abdominal pain, nausea and vomiting. COMPARISON STUDY: CT of the abdomen and pelvis February 12, 2023. PET/CT April 20, 2024. Chest CT April 07, 2024. TECHNIQUE: Following IV administration of 112 mL of Optiray, axial images of the abdomen and pelvis were obtained from the lung bases to the proximal femurs. Images were reviewed in the axial, sagittal, and coronal planes. IV contrast was administered without complication. Automated exposure control was utilized for the study. A dose lowering technique was utilized adhering to the principles of ALARA. CT DOSE: 2670.24 mGy.cm FINDINGS: Emphysema is again noted. A spiculated 2.2 cm left lower lobe lesion on image 35 remains unchanged since chest CT April 07, 2024. This appears to contain fat attenuation. An irregular right middle lobe opacity which also contains fat attenuation is similar to prior chest CT. There is a small hiatal hernia. No pneumatosis, free air or portal venous gas is present. Left renal cyst is noted. No hydronephrosis. There are small gallstones within the gallbladder. There is no pericholecystic infiltration. The gallbladder is mildly distended. Liver, spleen, adrenal glands and pancreas are unremarkable. 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 There is no lymphadenopathy. Note is made of extensive colonic diverticulosis without evidence for acute diverticulitis. There is no evidence for a bowel obstruction. Extensive aortoiliac atherosclerotic plaque is present. There areno acute fractures within lumbar spine, pelvis or hips. IMPRESSION: 1. No acute process within the abdomen or pelvis. 2. No bowel obstruction. No bowel wall thickening. 3. Colonic diverticulosis. No evidence for acute diverticulitis. 4. Spiculated left lower lobe nodule and spiculated mass-like right middle lobe opacity, unchanged since chest CT of April 07, 2024. The findings remain indeterminate and continued imaging follow-up is recommended. Medications Administered ER medications given: Normal saline 1 L bolus Famotidine 20 mg IV Ondansetron 4 mg IV ECG Rate (beats per minute): 75 Rhythm: sinus with SA Findings: + LAFB and + RBBB Comparison ECG Date: from (November 15, 2023) Change: no significant change Code Status & VTE Plan Code Status Full VTE Prophylaxis Plan VTE Prophylaxis will be ordered: Yes PG Care Time/CCT Total # of Minutes Spent Total Time Spent with Patient: Total time spent is greater than 50% in coordination of care (as documented) at patient's floor/unit and/or counseling patient: Coding Level of Care Code 50149 INT INP/OBS CARE MIN Diagnoses Vertigo R42 Elevated troponin R79.89 Thrombocytopenia D69.6
[2024-05-05] MEDS ORDERED: ONDANSETRON INJ 2 MG/ML 2 ML VIAL IV PRN (11:20)
[2024-05-05] MEDS ORDERED: PHARMACIST DISCHARGE MED REC CONSULT PRN (11:53)
[2024-05-05] MEDS: guaiFENesin 600 MG TABCR PO STA (12:04)
[2024-05-05] MEDS: PANTOprazole 40 MG TAB PO STA (12:05)
[2024-05-05] MEDS: FUROSEMIDE 20 MG TAB PO STA (12:05)
[2024-05-05] MEDS: TAMSULOSIN HCL 0.4 MG CAP PO STA (12:05)
[2024-05-05] MEDS: SERTRALINE HCL 50 MG TABLET PO STA (12:05)
[2024-05-05] MEDS: METOPROLOL SUCC 25MG EXT REL TAB PO STA (12:05)
[2024-05-05] MEDS: GADOBUTROL 65ML VIAL IV ONE (12:53)
--- NOTE | 2024-05-05 13:51 | Magnetic Resonance Report ---
MR brain wo/w con HISTORY: 83 years-old Male new onset vertigo acute vertigo COMPARISON: Head CT of same day TECHNIQUE: Multiplanar multisequence MRI of the brain was obtained with and without IV contrast FINDINGS: No restricted diffusion to suggest acute or subacute infarct. Midline structures are unremarkable. De generative pannus posterior to the dens. No acute intracranial hemorrhage, midline shift, abnormal ex tra-axial collection, hydrocephalus or intra-axial mass. No pathologic blooming artifact. Involutiona l changes. Moderate scattered T2/FLAIR hyperintense foci throughout the white matter suggests chronic microvascular ischemic disease no abnormal enhancement. Cerebral venous sinuses and major arterial flow voids appear patent. Skull, orbits and soft tissues a re within normal limits. Mild mucosal thickening of the ethmoid air cells. Small mastoid effusions. IMPRESSION: 1. No acute intracranial abnormality. No acute or subacute infarct. 2. Involutional changes with chronic microvascular ischemic disease. 3. No abnormal enhancement. ACT 112: Negative or not required by law. The above report was generated using voice recognition software. It may contain grammatical, syntax o r spelling errors. Electronically signed by: Sb Velásquez M.D. 05/05/2024 1:50 PM
[2024-05-05] MEDS ORDERED: ACETAMINOPHEN 325 MG TAB PO PRN (14:07)
[2024-05-05] MEDS: ACETAMINOPHEN 500 MG TAB PO STA (14:23)
[2024-05-05] MEDS: ASPIRIN 81 MG CHEW PO STA (15:43)
[2024-05-05 16:32] LABS: Partial Thromboplastin Time 26 Seconds (21-31)
[2024-05-05] MEDS: POLYETHYLENE (MIRALAX) 17 GM PACK PO SCH (20:11)
[2024-05-05] MEDS: LOSARTAN POTASSIUM 50 MG TAB PO SCH (20:15)
[2024-05-05] MEDS: PANTOprazole 40 MG TAB PO SCH (20:15)
[2024-05-05] MEDS: ASPIRIN 81 MG ECTAB PO SCH (20:15)
[2024-05-05] MEDS: ACETAMINOPHEN 500 MG TAB PO SCH (20:15)
[2024-05-05] MEDS: SODIUM CHLORIDE 1 GM TABLET PO SCH (20:16)
[2024-05-05] MEDS: SIMVASTATIN 20 MG TAB PO SCH (20:17)
[2024-05-05] MEDS: CALCIUM 600MG + VIT D 400 IU TAB PO SCH (20:18)
[2024-05-05] MEDS: FUROSEMIDE 20 MG TAB PO SCH (20:18)
[2024-05-05] MEDS: ENOXAPARIN INJ 40 MG/0.4 ML SYR SQ SCH (21:35)
--- NOTE | 2024-05-05 21:53 | Electrocardiogram Report ---
Test Reason : Blood Pressure : */* mmHG Vent. Rate : 75 BPM Atrial Rate : 75 BPM P-R Int : 196 ms QRS Dur : 168 ms QT Int : 444 ms P-R-T Axes : 67 -86 6 degrees QTcB Int : 495 ms Normal sinus rhythm with sinus arrhythmia Right bundle branch block Left anterior fascicular block Bifascicular block Abnormal ECG When compared with ECG of 15-Nov-2023 20:23, Premature atrial complexes are no longer Present Criteria for Septal infarct are no longer Present T wave inversion less evident in Anterolateral leads Confirmed by Wolf Abdullahi ([id number]) on 05/05/2024 9:53:06 PM Referred By: REFERRED SELF Confirmed By: Wolf Abdullahi
[2024-05-05] MEDS: MELATONIN 3 MG TAB PO PRN (21:56)
[2024-05-06] MEDS: traMADol HCL 50 MG TABLET PO PRN (00:22)
[2024-05-06 07:28] LABS: Basophils # (auto) 0.03 K/uL (0.00-0.20); Basophils % (auto) 0.8 %; Eosinophils # (auto) 0.06 K/uL (0.00-0.50); Eosinophils % (auto) 1.6 %; Hematocrit (blood only) 37.1 % (42.0-52.0); Hemoglobin 12.3 g/dl (14.0-18.0); Immature Granulocytes # (auto) 0.02 K/uL (0.01-0.20); Immature Granulocytes % (auto) 0.5 %; Lymphocytes # (auto) 0.78 K/uL (1.20-3.40); Mean Corpuscular Hemoglobin 30.2 pg (25.0-34.0); Mean Corpuscular Hgb Conc 33.2 g/dL (32.0-36.0); Mean Corpuscular Volume 91.2 fL (80.0-100.0); Mean Platelet Volume 9.5 fL (9.4-12.4); Monocytes # (auto) 0.39 K/uL (0.11-0.59); Monocytes % (auto) 10.5 %; Neutrophils # (auto) 2.44 K/uL (1.40-6.50); Neutrophils % (auto) 65.6 %; Platelet Count 115 K/uL (130-400); RDW Coefficient of Variation 14.6 % (11.5-14.5); RDW Standard Deviation 49.2 fL (36.4-46.3); Red Blood Count 4.07 M/uL (4.70-6.10); White Blood Count 3.72 K/ul (4.8-10.8)
--- NOTE | 2024-05-06 07:54 | Electrocardiogram Report ---
Test Reason : Blood Pressure : */* mmHG Vent. Rate : 44 BPM Atrial Rate : 44 BPM P-R Int : 210 ms QRS Dur : 168 ms QT Int : 548 ms P-R-T Axes : 30 -83 196 degrees QTcB Int : 468 ms Marked sinus bradycardia with 1st degree A-V block Right bundle branch block Left anterior fascicular block T-wave inversion in Lateral leads , consider ischemia Abnormal ECG When compared with ECG of 05-May-2024 07:15, Vent. rate has decreased by 31 bpm T wave inversion now evident in Lateral leads Confirmed by Guilherme Luong ([id number]) on 05/06/2024 7:54:31 AM Referred By: REFERRED SELF Confirmed By: Guilherme Luong
[2024-05-06 07:56] LABS: BUN Creatinine Ratio 20.4 (10-20); Chol HDL Ratio 3.2 (0-5); Creatinine Clr Calc Pharmacy 59.1 ml/min; Potassium 3.8 mmol/L (3.5-5.1)
--- NOTE | 2024-05-06 08:30 | XCELERA ---
[id number] \\[email or web address]\[id number]___[id number].pdf
[2024-05-06] MEDS: LORATADINE 10 MG TAB PO SCH (08:41)
[2024-05-06] MEDS: SERTRALINE HCL 50 MG TABLET PO SCH (08:41)
[2024-05-06] MEDS: CHOLECALCIFEROL 125 MCG (5,000 UNITS) TAB PO SCH (08:41)
[2024-05-06] MEDS: TAMSULOSIN HCL 0.4 MG CAP PO SCH (08:41)
[2024-05-06] MEDS: guaiFENesin 600 MG TABCR PO SCH (08:41)
[2024-05-06] MEDS ORDERED: METOPROLOL SUCC 25MG EXT REL TAB PO SCH (09:00)
[2024-05-06 09:21] LABS: T4 Free Thyroxine 0.78 ng/dl (0.61-1.60)
[2024-05-06 11:03] LABS: Estimated Average Glucose 111 mg/dl; Hemoglobin A1C 5.5 % (4.5-5.6)
--- NOTE | 2024-05-06 13:41 | Hospitalist Progress Note ---
Date of Service May 06, 2024 Assessment & Plan (1) Vertigo: Plan: Present on admission. Now resolved. Brain MRI scan negative for acute CVA (2) Bradycardia: Plan: With trifascicular block. Metoprolol has been discontinued. Telemetry. Thyroid status is unremarkable (3) Elevated troponin: Plan: Troponin jumped to 1946 and is now downtrending. He has mild to moderate global hypokinesis with ejection fraction 45% seen on cardiac echo. There is moderate left trickle hypertrophy. Mild aortic valve stenosis. He denies chest pain (4) Thrombocytopenia: Plan: He actually has mild pancytopenia. No intervention necessary at this time. Will follow (5) Essential hypertension: Plan: Metoprolol has been discontinued due to bradycardia. Other medications remain the same. Will follow Plan Hopeful discharge back to home within the next day or 2 Admission and Anticipated Discharge Date Admission Date: May 06, 2024 Subjective Alert and oriented. He has been markedly bradycardic since admission with evidence of trifascicular heart block noted on resting EKG. Metoprolol has been discontinued. Appreciate cardiology consultation and recommendations. Cardiac echo reveals moderate left ventricular hypertrophy with mild to moderate global hypokinesis with estimated ejection fraction of 45%. He also has mild aortic valve stenosis. Troponin jumped considerably to 1946 and is now trending down but no overt evidence of acute coronary syndrome. Mild pancytopenia noted. Will follow. Brain MRI scan negative for acute CVA on admission. He has been admitted from observation status. Free T4 and free T3 levels are normal Review of Systems 2 Review of Systems: Constitutionalno fever or chills. Malaise and weakness ENTno blurred vision, no double vision, no epistaxis, no sore throat Respiratoryno cough, no wheezing, no shortness of breath Cardiacno palpitations, no chest pain, no syncope Tank nausea, vomiting, diarrhea, melena, hematochezia GUno urinary retention, no urinary incontinence, no dysuria, no hematuria Musculoskeletalno joint pain, no muscle tenderness Skinno bruising, no rashes, no pruritus Neurono isolated weakness, no paresthesia. He does have generalized weakness Psychdepressed affect Physical Exam 2 Physical Exam: General-alert and oriented x3, no fever, no chills HEENT-head atraumatic and normocephalic, pupils equal and reactive to light, extraocular muscles intact Neck-no lymphadenopathy or thyromegaly, trachea midline Chest-clear to auscultation. No rales, wheezing or rhonchi Cardiac-bradycardic regular rhythm. Normal S1 and S2. Abdomen-normal bowel sounds, no hepatosplenomegaly Extremities-no cyanosis, clubbing, or edema Neuro-cranial nerves II through XII intact, motor and sensory function within normal limits, strength symmetrical, no focal deficits. Vertigo on admission has resolved Psych-depressed affect Results & Data Results & Data Vital Signs (Past 12 Hours) Vital Signs Temp Pulse Pulse Resp BP Pulse Ox Pulse Ox 05/06/24 13:00 97 05/06/24 11:58 36.6 C 48 L 16 142/64 H 97 05/06/24 07:52 36.6 C 56 L 18 138/60 91 05/06/24 07:18 39 L 05/06/24 06:45 47 L 05/06/24 02:45 36.7 C 59 L 18 106/43 L 92 O2 Del Method O2 Del Method 05/06/24 13:00 Room Air 05/06/24 11:58 Room Air 05/06/24 07:52 Room Air 05/06/24 07:18 05/06/24 06:45 05/06/24 02:45 Room Air Laboratory Results 05/06/24 07:08 05/06/24 07:08 PG Care Time/CCT Total # of Minutes Spent Total Time Spent with Patient: Total time spent is greater than 50% in coordination of care (as documented) at patient's floor/unit and/or counseling patient: Coding Level of Care Code 19474 SUB INP/OBS CARE 3/50MIN Diagnoses Vertigo R42 Bradycardia R00.1 Elevated troponin R79.89 Thrombocytopenia D69.6 Essential hypertension I10
--- NOTE | 2024-05-06 16:38 | Cardiology Consultation ---
Date of Consultation May 06, 2024 Assessment & Plan (1) Elevated troponin: Patient has absolutely no anginal type symptoms. My suspicion would be that this is a type II non-ST elevation [place]. His echocardiogram shows mildly reduced EF of 40 to 45%. Compared to 1 from December this is somewhat diminished but it is similar to one from August 2022. In fact, if you compare the 3 studies they essentially have the same findings with similar LVH, grade 1 diastolic dysfunction, segmental wall motion abnormalities, RV dilatation, mild aortic stenosis, and mild to moderate pulmonary hypertension depending on the study. There are certainly no new significant wall motion abnormalities to suggest new ACS. Conservative medical management is therefore recommended. He has coronary calcification on prior CT scan although he has never had coronary angiography to evaluate for occlusive disease. In the absence of symptoms catheterization may be overly aggressive. I would continue his home guideline directed therapy including aspirin, losartan, metoprolol succinate, and statin. Interestingly, he did have bronchoscopy and biopsy last week and states that "they were close to my heart" during the procedure. Not sure if that has anything to do with his current presentation. Patient may be a reasonable candidate to undergo coronary CTA as an outpatient to define his coronary anatomy. Those decisions will be left up to his primary weather analyst. (2) Essential hypertension: Currently the blood pressure is fairly well-controlled. I do not think his presenting symptoms were a blood pressure issue. Home regimen included losartan 50 mg daily and metoprolol succinate ER 12.5 mg daily. Probably best to keep him on this regimen although the beta-lolly at that dose may not be that effective. (3) Bradycardia: I have reviewed the patient's monitor strips as well as flowsheet for vital signs. Heart rate has been as low as 39 and at most 83 bpm. His EKG shows right bundle branch block, first-degree AV block, and left anterior fascicular block. It may be that we need to discontinue the metoprolol succinate and/or he may have sinus node dysfunction. That may eventually require a pacemaker implant although his symptoms are not directly relatable to his heart rate at this point. (4) Vertigo: His symptoms are classically vertiginous. I do not think they have anything to do with his heart although the patient does have angiography of his carotid showing significant disease bilaterally plus some vertebral disease. Severity of this is unchanged from prior and it seems unlikely this is the sole reason for his vertigo. Plus, the MRI of his brain does not show any new ischemia or infarction which would be more concerning and suggestive of ischemia causing his vertigo. History of Present Illness Reason for Consultation: Elevated troponin Attending Physician: Diomedes Dorado MD History of Present Illness Pleasant 83-year-old gentleman who follows with [facility] and Dr. Cristian Hernandez for his cardiology care. He has a history of right bundle branch block, coronary calcification noted on CT scan without prior cardiac catheterization, hypertension, and dyslipidemia. He tells me that he awoke from bed and tried to walk to the bathroom but was very dizzy and the room was spinning. He could not stay on his feet. He eventually crawled back to his bed and then called his son who lives down the street from him. He came to the emergency department with the symptoms. He denied any chest pain heaviness or tightness. He also denies dyspnea. He was a bit nauseated from the dizziness. He denied syncope, near syncope, orthopnea, PND, racing heartbeat, palpitations, or edema. His workup included an EKG demonstrating right bundle branch block, first-degree AV block, and a left anterior fascicular block. He had an echocardiogram and laboratory data obtained. His troponin was found to be elevated and trending upward (545, 1946, 1242, and 763). He voices no other complaints or concerns at this time. He tells me that he has had low heart rates in the past. Allergies Allergy/AdvReac Type Severity Reaction Status Date / Time ibuprofen Allergy Intermediate Rash Verified 05/05/24 10:07 Penicillins Allergy Intermediate Rash Verified 05/05/24 10:07 ranitidine Allergy Intermediate Rash Verified 05/05/24 10:07 (stomach) meloxicam Allergy Unknown Unknown Verified 05/05/24 10:07 ramipril Allergy Unknown Unknown Verified 05/05/24 10:07 oxycodone AdvReac Severe Hallucinati Verified 05/05/24 10:07 ons propoxyphene AdvReac Severe Hallucinati Verified 05/05/24 10:07 ons pravastatin AdvReac Intermediate Joint pain Verified 05/05/24 10:07 doxycycline AdvReac Unknown Per Verified 05/05/24 10:07 records (pt denies) Home Medications Medication Instructions Recorded Confirmed Type calcium 600 mg (as carbonate)-vit 1 tab PO BID 02/16/18 05/05/24 History D3 20 mcg (800 unit) chewable tablet (Caltrate plus D) cholecalciferol (vitamin D3) 125 5,000 units PO QAM 02/16/18 05/05/24 History mcg (5,000 unit) tablet polyethylene glycol 3350 17 17 g PO HS 02/16/18 05/05/24 History gram/dose oral powder (Miralax) vit A 5,000 unit-C 120 mg-E 60 1 tab PO QAM 02/16/18 05/05/24 History unit-B qwzer-iygrbraq-euyyjv tablet ER (Lipotriad (with lutein)) aspirin 81 mg tablet,delayed 81 mg PO QPM 11/07/23 05/05/24 History release (Adult Low Dose Aspirin) guaifenesin 600 mg tablet, 600 mg PO QAM 11/07/23 05/05/24 History extended release 12 hr (Mucinex) pantoprazole 40 mg tablet,delayed 40 mg PO BID #180 tabs 12/04/23 05/05/24 Rx release furosemide 20 mg tablet 20 mg PO BID #180 tabs 12/08/23 05/05/24 Rx sodium chloride 1,000 mg soluble 1,000 mg PO BID #180 tabs 12/08/23 05/05/24 Rx tablet metoprolol succinate 25 mg 12.5 mg PO QAM 01/01/24 05/05/24 History tablet,extended release 24 hr omega 1-onh-ste-fish oil 1,000 mg 1 cap PO QAM 01/01/24 05/05/24 History (120 mg-180 mg) capsule (Fish Oil) sertraline 50 mg tablet 50 mg PO QAM 01/01/24 05/05/24 History loratadine 10 mg tablet (Claritin) 10 mg PO QAM #90 tabs 01/12/24 05/05/24 Rx losartan 50 mg tablet 50 mg PO HS #90 tabs 02/16/24 05/05/24 Rx simvastatin 20 mg tablet (Zocor) 20 mg PO QPM #90 tabs 03/01/24 05/05/24 Rx tramadol 50 mg tablet 50 mg PO HS PRN pain #30 tabs 04/16/24 05/05/24 Rx hydrocortisone acetate 25 mg 25 mg RI BID PRN Hemorrhoids 04/26/24 05/05/24 History rectal suppository (Anusol-HC) tamsulosin 0.4 mg capsule 0.4 mg PO QAM 04/26/24 05/05/24 History Patient History Medical History Bifascicular block 11/2023 Syncope Hypotension History of COVID-20 June 2023: flu symptoms. resolved. Pulmonary nodules "Benign" navigational bronchoscopy/biopsy (2015) Pulmonary hypertension Spinal stenosis History of prostate cancer (2011) no surgical intervention, treated hormone therapy. 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 Hernandez Hx of squamous cell carcinoma Weakness r/t covid infection in June 2023. 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 Walden 09/27/2020 H/O right inguinal hernia repair Laparoscopic Right Inguinal Hernia Repair with mesh, Open Umbilical Hernia Repair(Right) Dr. Walden 09/27/2020 History of prostate biopsy History of melanoma excision History of tooth extraction all teeth removed S/P bronchoscopy Navigational bronchoscopy (2015) History of colonoscopy History of total knee arthroplasty R/L H/O cervical spine surgery ACDF C4-5 (no ROM limitations per PAT RN interview) History of tonsillectomy and adenoidectomy Family History Father Coronary heart disease Heart disease Myocardial infarction Mother Stroke Family/Other Diabetes A-fib Lung cancer Hypertension Other No family history of adverse response to anesthesia No family history of bleeding disorder Denies family history of Ovarian cancer Prostate cancer Breast cancer Colorectal cancer Social History Smoking Status: Former smoker Tobacco Type: Cigarettes Age Started Using Tobacco: 15; Age Quit Using Tobacco: 49; packs per day: 0.5; Second Hand Exposure: No; Do You Dip or Chew Tobacco: No; Tobacco Cessation Education Requested by Patient: No Hx Alcohol Use: No Hx Substance Use: No Preferred Language: Georgian Communication Ability: Effective Visual Impairment: No Limitations Hearing Ability: Normal Nodulizer Required: No Beliefs That Will Affect Care: None marital status: / marital status details: lost June 2023 Current Living Situation: Alone current occupational status: retired Other Information That Helps Us Care for You: No Feels Safe at Home: Yes Safety Concerns: Feels Safe At This Time Childhood Exposure to Second-Hand Smoke: Yes Diet: regular Diet Comment: regular caffeine: No during the past year weight has: remained stable Dental Care, Regularly: No Physical Activity Frequency: Daily Seatbelt Use: always Sunscreen Use: No Assistive Devices: Cane Review of Systems Review of Systems: Negative except as per HPI Physical Exam Constitutional: WD/WN, vitals as above (Elderly, no acute distress) Eyes: Extraocular muscles intact. Sclera are anicteric. ENMT: Oral mucosa is pink and dry Neck: No JVD Respiratory: Clear to auscultation bilaterally. No wheezing, rhonchi, or rales appreciated. Good air movement. Cardiovascular: Regular rhythm, bradycardic rate. S4 gallop. Soft systolic murmur. No edema. Musculoskeletal: no cyanosis or clubbing, extremities motor strength 5/5 Neurologic: Cognition is intact. Speech is fluent. No focal deficits. Mildly diminished hearing. Psychiatric: A+Ox3, euthymic affect Results & Data Vital Signs (Past 12 Hours) Vital Signs Temp Pulse Pulse Resp BP Pulse Ox Pulse Ox 05/06/24 16:01 36.8 C 53 L 18 120/64 96 05/06/24 14:18 45 L 05/06/24 13:00 97 05/06/24 11:58 36.6 C 48 L 16 142/64 H 97 05/06/24 07:52 36.6 C 56 L 18 138/60 91 05/06/24 07:18 39 L 05/06/24 06:45 47 L O2 Del Method O2 Del Method 05/06/24 16:01 Room Air 05/06/24 14:18 05/06/24 13:00 Room Air 05/06/24 11:58 Room Air 05/06/24 07:52 Room Air 05/06/24 07:18 05/06/24 06:45 PG Care Time/CCT Total # of Minutes Spent Total Time Spent with Patient: Total time spent is greater than 50% in coordination of care (as documented) at patient's floor/unit and/or counseling patient: Coding Level of Care Code 22699 INT INP/OBS CARE 2/55MIN Diagnoses Elevated troponin R79.89 Essential hypertension I10 Bradycardia R00.1 Vertigo R42
[2024-05-07 07:04] LABS: Basophils # (auto) 0.03 K/uL (0.00-0.20); Basophils % (auto) 0.9 %; Eosinophils # (auto) 0.06 K/uL (0.00-0.50); Eosinophils % (auto) 1.9 %; Hematocrit (blood only) 38.3 % (42.0-52.0); Immature Granulocytes # (auto) 0.01 K/uL (0.01-0.20); Immature Granulocytes % (auto) 0.3 %; Lymphocytes # (auto) 0.69 K/uL (1.20-3.40); Lymphocytes % (auto) 21.4 %; Mean Corpuscular Hemoglobin 30.2 pg (25.0-34.0); Mean Corpuscular Hgb Conc 33.9 g/dL (32.0-36.0); Mean Corpuscular Volume 89.1 fL (80.0-100.0); Mean Platelet Volume 9.4 fL (9.4-12.4); Monocytes # (auto) 0.36 K/uL (0.11-0.59); Monocytes % (auto) 11.1 %; Neutrophils # (auto) 2.08 K/uL (1.40-6.50); Neutrophils % (auto) 64.4 %; Platelet Count 118 K/uL (130-400); RDW Coefficient of Variation 14.6 % (11.5-14.5); White Blood Count 3.23 K/ul (4.8-10.8)
[2024-05-07 07:26] LABS: BUN Creatinine Ratio 18.6 (10-20); Calcium 9.2 mg/dl (8.6-10.3); Creatinine Clr Calc Pharmacy 56.7 ml/min; Potassium 3.5 mmol/L (3.5-5.1)
[2024-05-07 07:35] VITALS: RESP 20; TEMP 98.1
[2024-05-07 11:23] VITALS: BP 125/67
--- NOTE | 2024-05-07 12:29 | Electrocardiogram Report ---
Test Reason : Blood Pressure : */* mmHG Vent. Rate : 58 BPM Atrial Rate : 58 BPM P-R Int : 212 ms QRS Dur : 166 ms QT Int : 526 ms P-R-T Axes : 20 -87 164 degrees QTcB Int : 516 ms Poor data quality, interpretation may be adversely affected Sinus bradycardia with sinus arrhythmia with 1st degree A-V block Left anterior fascicular block Right bundle branch block T wave abnormality, consider inferolateral ischemia Abnormal ECG When compared with ECG of 06-May-2024 05:29, No significant change was found Confirmed by Guilherme Luong ([id number]) on 05/07/2024 12:29:05 PM Referred By: REFERRED SELF Confirmed By: Guilherme Luong
--- NOTE | 2024-05-07 12:36 | Discharge Summary ---
Discharge Summary Date of Service May 07, 2024 Principal Dx & Hospital Course #1 = Principal Diagnosis (1) Vertigo: Present on admission. Now resolved. Brain MRI scan negative for acute CVA (2) Bradycardia: With trifascicular block. Metoprolol has been discontinued. Telemetry. Thyroid status is unremarkable. Heart rate has improved (3) Elevated troponin: Troponin jumped to 1946 and is now downtrending. He has mild to moderate global hypokinesis with ejection fraction 45% seen on cardiac echo. There is moderate left ventricular hypertrophy. Mild aortic valve stenosis. He denies chest pain. No evidence of acute coronary syndrome (4) Thrombocytopenia: He actually has mild pancytopenia. No intervention necessary at this time. Will follow (5) Essential hypertension: Metoprolol has been discontinued due to bradycardia. Other medications remain the same. Will follow Plan Home today, May 07, off metoprolol Admission HPI Per Admitting Provider Vane Manuel is an 83-year-old male who presents to the ER with vertigo. This started suddenly at 5 AM when he woke up and looked over the clock with everything going in circles. Hopefully waking up the room was spinning and he felt nauseous. He somehow made it to the restroom and started vomiting. He denies any chest pain, shortness of breath, palpitations, weight gain, leg swelling, presyncope or syncope. He called his son when this happened and his systolic blood pressure was in the 180s initially which prompted his EMS call. This sensation lasted for around 2 hours and was resolved shortly after getting ondansetron by EMS. He was noted to be 90% on room air by EMS and started on 6 L/min O2. Discharge Exam General-alert and oriented x3, no fever, no chills HEENT-head atraumatic and normocephalic, pupils equal and reactive to light, extraocular muscles intact Neck-no lymphadenopathy or thyromegaly, trachea midline Chest-clear to auscultation. No rales, wheezing or rhonchi Cardiac-bradycardic regular rhythm. Normal S1 and S2. Abdomen-normal bowel sounds, no hepatosplenomegaly Extremities-no cyanosis, clubbing, or edema Neuro-cranial nerves II through XII intact, motor and sensory function within normal limits, strength symmetrical, no focal deficits. Vertigo on admission has resolved Psych-depressed affect Discharge Plan Discharge Items Patient Disposition: Home - Self-Care Reason For Visit: NOW ONSET VERTIGO Discharge Diagnosis: Sinus bradycardia with trifascicular block, transient vertigo Activity: Resume your previous activity Non-emergency contact: Primary Care Provider Call non-emergency contact if: your symptoms worsen Follow-up/Referrals: Carisa Marr DO [Primary Care Provider] - Diet: Regular and Heart Healthy Addtl Attending Provider Instructions: Stop metoprolol. All other medications remain the same Pending Studies at Discharge: No Stand-Alone Forms: My [facility] Pain Doctor, Smoking Cessation Medications and DC Order Prescriptions: Continued calcium carbonate-vitamin D3 [Caltrate 600 plus D] 600 mg (1,500 mg)-800 unit tablet,chewable 1 tab PO BID cholecalciferol (vitamin D3) 5,000 unit tablet 5,000 units PO QAM vits A-C-E-B fbnhru-uln-gbqzpv [Lipotriad (with lutein)] 5,000 unit- 120 mg-60 unit tablet extended release 1 tab PO QAM polyethylene glycol 3350 [Miralax] 17 gram/dose powder 17 g PO HS sodium chloride 1,000 mg tablet,soluble 1,000 mg PO BID Qty: 180 3RF furosemide 20 mg tablet 20 mg PO BID Qty: 180 3RF Rx Instructions: Take one tablet each morning and at noon loratadine [Claritin] 10 mg tablet 10 mg PO QAM Qty: 90 4RF simvastatin [Zocor] 20 mg tablet 20 mg PO QPM Qty: 90 3RF tramadol 50 mg tablet 50 mg PO HS PRN (Reason: pain) Qty: 30 0RF pantoprazole 40 mg tablet,delayed release (DR/EC) 40 mg PO BID Qty: 180 1RF losartan 50 mg tablet 50 mg PO HS Qty: 90 3RF aspirin [Adult Low Dose Aspirin] 81 mg tablet,delayed release (DR/EC) 81 mg PO QPM guaifenesin [Mucinex] 600 mg tablet extended release 12hr 600 mg PO QAM omega 6-woj-but-fish oil [Fish Oil] 1,000 (120-180) mg Capsule 1 cap PO QAM sertraline 50 mg tablet 50 mg PO QAM hydrocortisone acetate [Anusol-HC] 25 mg suppository 25 mg FL BID PRN (Reason: Hemorrhoids) tamsulosin 0.4 mg capsule 0.4 mg PO QAM Discontinued metoprolol succinate 25 mg tablet extended release 24 hr 12.5 mg PO QAM Discharge Orders: Discharge Order (Routine); Ordered 05/07/24 Ordered By: Diomedes Dorado Admission Data Admit Date/Time: 05/06/24 13:29 Attending Provider: Diomedes Dorado Admit Provider: Diaz Kelly Primary Care Provider: Carisa Marr Other Providers: Diaz Kelly; Wolf Abdullahi Hospital Stay Data Consultations 05/05/24 10:04 ED Decision to Admit Stat 05/05/24 15:33 Consult Cardiology Routine Diagnostic Imagining Performed 05/05/24 08:02 CT angio head w con Stat CT angio neck with con Stat CT head/brain wo con Stat 05/05/24 08:03 CT abd pelvis IV con only Stat 05/05/24 10:08 MRI Brain [MR brain wo/w con] Stat Pending Results Patient Have Any Pending Studies at Discharge: No Discharge Instructions Given to Patient (Per Discharging Provider) Stop metoprolol. All other medications remain the same Total Time Total Time Spent Total Time Spent (In Minutes): 45 minutes Coding Level of Care Code 61594 INP/OBS DISCH >30 MIN Diagnoses Vertigo R42 Bradycardia R00.1 Elevated troponin R79.89 Thrombocytopenia D69.6 Essential hypertension I10
[2024-05-07 13:26] VITALS: PULSE 55; O2SAT 92
--- NOTE | 2024-05-10 09:38 | Coding Query ---
CODING QUERY To promote full compliance with coding requirements relating to patient care, provider participation is requested in all cases of boarder steam uncertainty. Please assist us with the question(s) below: Coding Question(s): The cardiology consult has the following documentation regarding the patient's elevated troponin, "My suspicion would be that this is a type II non-ST elevation NM." In your clinical opinion, could you please select any diagnoses that apply by placing an 'x' in the parenthesis? Elevated troponin without coronary syndrome (x ) Type II Myocardial Infarction ( ) NSTEMI ( ) Other, please specify ( ) Physician's Response(s): Thank you Tiffani Honeycutt Principal Diagnosis: "that condition established after study, to be chiefly responsible for occasioning the admission of the patient to the hospital for care." Co-Existing Principal Diagnosis: "when two or more diagnoses equally meet the criteria for principal diagnosis as determined by the circumstances of admission, diagnostic work up, and/or therapy provided, and the Alphabetic Index, Tabular List, or another coding guideline does not provide sequencing direction, any one of the diagnoses may be sequenced first." "When the physician has documented what appears to be a current diagnosis in the body of the record, but has not included the diagnosis in the final diagnostic statement, the physician should be asked whether the diagnosis should be added." (Source Coding Clinic 2 QTR90. p3-4) HAYDE
== END 2024-05-07 15:36 | disposition home or self-care (01) | DRG 149 ==
LOC: EDINP 07:07 → ED 07:07 → SUATTDRO 10:25 → 2N 11:38